=== PATIENT | female | born 1985 | race Caucasian/White ===

== ENCOUNTER → 2021-07-18 14:09 | Outpatient (CLI) | payer OTHER, SELFPAY ==
--- NOTE | ~2021-07-18 | XR_ITS ---
EXAMINATION: XR humerus LT INDICATION: Encounter for surveillance of implantable subdermal contraceptive device TECHNIQUE: Two views of the left humerus are obtained. COMPARISON: None available FINDINGS: There is a 4 cm linear radiopaque foreign body implanted in the posterior subcutaneous tiss ues overlying the mid/distal left humerus. Bone alignment is normal. There is no fracture. Joint spac es are normal. IMPRESSION: 1. Contraceptive device is implanted in the posterior subcutaneous tissues overlying the mid/distal h umerus. Reviewed, dictated and finalized at location F. IMPRESSION: 1. Contraceptive device is implanted in the posterior subcutaneous tissues over lying the mid/distal humerus.
== END ==
PROVIDERS: PCP Obstetrics & Gynecology; Visit Provider Obstetrics & Gynecology
DX: Z30.46 Encounter for surveillance of implantable subdermal contraceptive (principal)
CPT/HCPCS: 73060

== ENCOUNTER 2023-07-15 08:43 | Emergency (ER) | payer OTHER, SELFPAY ==
--- NOTE | ~2023-07-15 | CT_ITS ---
EXAMINATION: CT abdomen pelvis w con DATE: 07/15/2023 09:54 INDICATION: Left lower quadrant abdominal pain. TECHNIQUE: Computed tomography (CT) of the abdomen and pelvis was performed with 100 mL Omnipaque 350 intravenous contrast. Automated exposure control and iterative reconstruction technique were employe d. The dose-length product was 862.12 mGy-cm. COMPARISON: None. FINDINGS: The visualized portions of the lung bases demonstrates mild atelectasis. No pleural effusio n. The heart size is normal. No pericardial effusion. The liver, gallbladder, spleen, pancreas, adren al glands, and kidneys are normal. There are no dilated loops of bowel. There is wall thickening of t he sigmoid colon. There are scattered diverticula in the colon. There is fat stranding around the sig moid colon centered at a diverticulum, consistent with diverticulitis. The appendix is normal. There is a small volume of ascites in the pelvis and left paracolic gutter. There are no pathologically enl arged lymph nodes. There is mild thoracic and lumbar spondylosis. There is a chronic compression frac ture of L1. IMPRESSION: 1. Acute sigmoid diverticulitis. No perforation or abscess. 2. Small volume of ascites. Reviewed, dictated and finalized at location E.
[2023-07-15 08:54] VITALS: BP 136/82; PULSE 100; RESP 18; TEMP 36.4; O2SAT 97
--- NOTE | 2023-07-15 09:07 | ED.GENADULT ---
HPI - General Adult General Chief complaint: Abdominal Pain Stated complaint: abdominal pain Time Seen by Provider: 07/15/23 08:55 History of Present Illness HPI narrative: Eleni Kirkland is a 38 y/o female with no PMHx who presents today with complaints of left lower abdominal pain. She states that pain started last night at 1900, she tried to get some rest and the pain woke her up out of her sleep at around 0200. Reports she is starting to have some nausea now but no vomiting. Last ate / drank at 1900 yesterday. Denies urinary symptoms, last BM was yesterday and it was not diarrhea but softer then normal. LMP about 1 week ago. Related Data Home Medications Medication Instructions Recorded Confirmed ascorbate calcium (vitamin C) 500 500 mg PO DAILY 01/03/22 01/03/22 mg capsule elderberry fruit 200 mg capsule 200 mg PO DAILY 01/03/22 01/03/22 multivitamin (Daily Multi-Vitamin 1 tablet PO DAILY 01/03/22 01/03/22 tablet) Allergies Allergy/AdvReac Type Severity Reaction Status Date / Time No Known Allergies Allergy Verified 07/15/23 08:58 Review of Systems Review of Systems: CONSTITUTIONAL: Denies fever, chills, But states that she was sweating in the night last night EYES: Denies visual changes, redness, or discharge. ENT: Denies rhinorrhea, congestion, sore throat, or otalgia. CARDIOVASCULAR: Denies chest pain, palpitations, or edema. RESPIRATORY: Denies cough or dyspnea. GASTROINTESTINAL: + abdominal pain +nausea, no vomiting, or diarrhea. GENITOURINARY: Denies dysuria or hematuria. SKIN: Denies rash or itching. MUSCULOSKELETAL: Denies back pain, joint pain, or myalgia. NEUROLOGIC: Denies headache, numbness, dizziness, or weakness. PSYCHIATRIC: Denies anxiety or depression. 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 HEAD: Normocephalic, atraumatic. EYES: PERRLA and EOMI. ENT: Nares clear, no rhinorrhea or epistaxis. Mucous membranes moist. Oropharynx without tonsillar hypertrophy exudate or other lesions. NECK: Supple. No adenopathy or masses. No carotid bruits or JVD CHEST: Clear to auscultation. No respiratory distress. No wheezes rales or rhonchi HEART: Regular rate and rhythm. No murmur heard. Normal peripheral pulses. ABDOMEN: slightly distended + Pain to the left lower quadrant, hypoactive bowel sounds present EXTREMITIES: Normal range of motion. No edema. SKIN: Warm, dry, no rash. NEURO: No focal deficits. Alert and oriented x3. PSYCH: Normal mood and affect. Course Vital Signs Vital signs: Vital Signs Temperature 36.4 C L 07/15/23 08:54 Pulse Rate 100 07/15/23 08:54 Respiratory Rate 18 07/15/23 08:54 Blood Pressure 136/82 07/15/23 08:54 Pulse Oximetry 97 07/15/23 08:54 Oxygen Delivery Room Air 07/15/23 08:54 Temperature 36.4 C L 07/15/23 08:54 Pulse Rate 100 07/15/23 08:54 Respiratory Rate 18 07/15/23 08:54 Blood Pressure 136/82 07/15/23 08:54 Pulse Oximetry 97 07/15/23 08:54 Oxygen Delivery Room Air 07/15/23 08:54 Medical Decision Making [facility] Narrative Medical decision making narrative: 38 y/o with abdominal pain to the left lower quadrant started yesterday at 1900 constant with waves of severity specifically waking her out of her sleep last night at around 0200. + nausea no vomiting / BM yesterday abdomen mildly distended / pain to the left lower quad bowel sounds present Concern for : divert
[2023-07-15 09:08] LABS: Basophils Percent Auto 0.4 % (0.2-1.2); Eosinophils Absolute Auto 0.3 K/mm3 (0-0.3); Eosinophils Percent Auto 2.6 % (0-4.4); Immature Granulocyte Absolute 0.03 K/mm3 (0.00-0.031); Immature Granulocyte Percent A 0.3 % (0-0.5); Lymphocytes Absolute Auto 1.48 K/mm3 (0.9-3.2); Lymphocytes Percent Auto 14.3 % (18.3-44.2); Mean Corpuscular Hemoglobin 32.3 pg (26-34); Mean Corpuscular Volume 92.2 fl (80-100); Mean Platelet Volume 9.7 fl (7.4-10.4); Monocytes Percent Auto 9.3 % (2.6-8.5); Neutrophils Absolute Auto 7.6 K/mm3 (1.3-6.7); Neutrophils Percent Auto 73.1 % (45.5-73.1); Platelet Count Result 237 k/mm3 (150-375); Red Blood Count 4.34 M/mm3 (4.2-5.4); Red Cell Distribution Width 11.8 % (11.5-14.5); White Blood Count 10.4 K/mm3 (4.5-10.0)
[2023-07-15 09:15] LABS: Appearance Urine Cloudy (Clear); Bacteria Urine 2+ /hpf; Bilirubin Urine Negative (Negative); Blood Urine Trace (Negative); Color Urine Yellow (Yellow); Glucose Urine UA Negative (Negative); Ketones Urine 1+ mg/dL (Negative); Leukocyte Esterase Ur Negative LEU/UL (Negative); Nitrate Urine Negative (Negative); Non Pathogenic Casts 0-2; Protein Urine Negative (Negative); RBC Urine 0-2 /hpf (0-2); Specific Grav Ur 1.015 (1.001-1.035); Squamous Epithelial Cell Urine Moderate /hpf (Few); Urobilinogen Urine 0.2 mg/dL (<2.0); WBC Urine 0-5 /hpf (0-3)
[2023-07-15 09:17] LABS: Add Urine Microscopic? YES
[2023-07-15 09:18] LABS: Alanine Aminotransferase 22 U/L (6-35); Albumin Level 4.7 g/dL (3.5-5.1); Alkaline Phosphatase 51 U/L (38-126); Anion Gap 12 mmol/L (4-12); Aspartate Amino Transferase 22 U/L (14-36); Bilirubin,Total 1.6 mg/dL (0.2-1.3); Blood Urea Nitrogen 12 mg/dL (7-17); Calcium 9.1 mg/dL (8.4-10.2); Carbon Dioxide 19 mmol/L (22-30); Chloride 106 mmol/L (98-107); Estimated CRCL calculation 107 ml/min; Estimated Glomerular Filt Rate > 60; Glucose 108 mg/dL (65-110); Lipase 54 U/L (23-300); Potassium 3.7 mmol/L (3.4-5.0); Sodium 137 mmol/L (137-145)
[2023-07-15] MEDS: SODIUM CHLORIDE 0.9% IV 1,000 ML 999 ML IV CONT (09:35)
[2023-07-15] MEDS: KETOROLAC 30 MG/ML VIAL (*BKC) IV PUSH (09:35)
[2023-07-15] MEDS: ONDANSETRON INJ 4 MG/2 ML VIAL IV PUSH (09:36)
[2023-07-15] MEDS: FAMOTIDINE 20 MG/2 ML VIAL IV PUSH (09:36)
[2023-07-15] MEDS: DICYCLOMINE HCL INJ 20 MG/2 ML VIAL IM (09:36)
[2023-07-15 10:00] VITALS: BP 132/78; PULSE 78; RESP 16; TEMP 36.7; O2SAT 95
[2023-07-15 10:46] VITALS: BP 134/92; PULSE 70; RESP 16; TEMP 36.6; O2SAT 98
[2023-07-15] MEDS: MORPHINE SULFATE (*CRX) 4 MG/ML INJ IV PUSH (10:47)
[2023-07-15] MEDS: AMOXICILLIN/CLAVULANATE K 875-125 MG TAB 1 TABLET PO (10:49)
[2023-07-15 11:15] VITALS: O2SAT 96
[2023-07-15 11:16] VITALS: BP 137/88; O2SAT 96
[2023-07-15 11:50] VITALS: BP 132/80; PULSE 74; RESP 16; TEMP 36.6; O2SAT 100
== END 2023-07-15 11:53 | disposition home or self-care (01) ==
PROVIDERS: Preventive Medicine Aerospace Medicine; Emergency Provider Nurse Practitioner Family
DX: K57.92 Diverticulitis of intestine, part unspecified, without perforation or abscess without bleeding (principal); Z87.891 Personal history of nicotine dependence
CPT/HCPCS: 36415; 74177; 80053; 81001; 81025; 83690; 85025; 96361; 96372; 96374; 96375; 99284; A9270; J0500; J1885; J2270; J2405; J7030; Q9967

== ENCOUNTER 2023-07-17 10:22 | Emergency (ER) | payer OTHER, SELFPAY ==
--- NOTE | ~2023-07-17 | XR_ITS ---
EXAMINATION: XR abdomen obstructive series DATE: 07/17/2023 12:41 INDICATION: Diverticulitis. TECHNIQUE: Supine and upright views of the abdomen. FINDINGS: No prior studies for comparison. The visualized lung parenchyma is normal.. There is a nonobstructive bowel gas pattern. Gas and stool are seen throughout the colon to the level of the rectum. There is no free air. IMPRESSION: 1. No acute abdominal abnormality. Reviewed, dictated and finalized at location B.
[2023-07-17 10:32] VITALS: BP 151/82; PULSE 96; RESP 18; TEMP 36.4; O2SAT 99
--- NOTE | 2023-07-17 12:03 | PC.NURSE ---
Pt crying, anxious reports her abdominal pain has not changed since was seen 07/15/23. States has been taking antibiotics & [place] without relief. States she feels she should have been admitted when she was in ER 07/15/23. Pt reports is to go back to work tomorrow feels like she can't due to pain.
--- NOTE | 2023-07-17 12:09 | ED.ABDPAIN ---
HPI - Abdominal Pain General Chief Complaint: Abdominal Pain Stated Complaint: Diverticulitis Time Seen by Provider: 07/17/23 11:38 Source: patient Mode of arrival: ambulatory Limitations: no limitations History of Present Illness HPI narrative: Patient was recently seen in the emergency department on to stay with left lower quadrant abdominal pain. She was found to have diverticulitis was uncomplicated abscess or perforation at that time. She was discharged with prescriptions for [place] for pain relief, Zofran, and antibiotics. Patient has been concerned as she has intermittently been continuing to experience pain. She was also unsure why she was discharged home as the more she read about this condition she suspect it might have required admission. She has been taking her prescribed medications. However she has not had a bowel movement since Friday night and is concerned about this as well since normally she defecates 1-3 times/day. Patient had not been prescribed a bowel regimen. No prior colonoscopy. Does not currently have a pCP but is set to establish with someone on Friday. Patient had been very unsure of what to eat and so has had decreased PO intake but has an appetite. She states the pain in her LLQ feels like an occasional contraction. No fevers. Related Data Home Medications Medication Instructions Recorded Confirmed ascorbate calcium (vitamin C) 500 500 mg PO DAILY 01/03/22 01/03/22 mg capsule elderberry fruit 200 mg capsule 200 mg PO DAILY 01/03/22 01/03/22 multivitamin (Daily Multi-Vitamin 1 tablet PO DAILY 01/03/22 01/03/22 tablet) Allergies Allergy/AdvReac Type Severity Reaction Status Date / Time No Known Allergies Allergy Verified 07/15/23 08:58 [facility] Past Medical History Medical History Diverticulitis Dx June 2023 Social History Social History (Updated 07/18/23 @ 06:23 by Santa Sanz MD) Smoking packs per day: 0.5 Smoking cigarettes per day: 10.0 Years smoked: 5.5 Smoking pack-years: 2.75 Smoking status: Former smoker Tobacco type: cigarettes Second hand tobacco smoke exposure: No Alcohol intake: current Drinks per week: 2 Substance use: former Substance use type: marijuana 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 HEAD: Normocephalic, atraumatic. EYES: Non injected, non icteric ENT: Nares clear, no rhinorrhea or epistaxis. NECK: Supple. CHEST: Speaking in full sentences. No respiratory distress. HEART: Regular rate and rhythm. . ABDOMEN: Soft, nondistended. Mild tenderness to palpation in the left lower quadrant without rigidity or guarding. EXTREMITIES: Normal range of motion. No edema. SKIN: Warm, dry, no rash. NEURO: No focal deficits. Alert and oriented x3. PSYCH: Normal mood and affect. Course Vital Signs Vital signs: Vital Signs Temperature 97.6 F 07/17/23 10:32 Pulse Rate 96 07/17/23 10:32 Respiratory Rate 18 07/17/23 10:32 Blood Pressure 151/82 H 07/17/23 10:32 Pulse Oximetry 99 07/17/23 10:32 Oxygen Delivery Room Air 07/17/23 10:32 Temperature 98.0 F 07/17/23 14:48 Pulse Rate 78 07/17/23 14:48 Respiratory Rate 18 07/17/23 14:48 Blood Pressure 136/86 07/17/23 14:48 Pulse Oximetry 97 07/17/23 14:48 Oxygen Delivery Room Air 07/17/23 10:32 MDM - Abdominal Pain MDM Narrative Medical decision making narrative: Patient did present to the emergency department few days prior with left lower quadrant abdominal pain
[2023-07-17] MEDS: KETOROLAC 30 MG/ML VIAL (*BKC) 15 MG IM (12:41)
[2023-07-17] MEDS: ACETAMINOPHEN 500 MG TABLET 1000 MG PO (12:41)
[2023-07-17 12:45] VITALS: BP 144/97; PULSE 98; RESP 20; TEMP 36.6; O2SAT 99
--- NOTE | 2023-07-17 13:38 | PC.NURSE ---
Pt resting on stretcher, states sleeping short intervals. Rates pain 6
[2023-07-17 14:27] VITALS: BP 136/86; PULSE 78; RESP 16; TEMP 36.7; O2SAT 97
[2023-07-17 14:48] VITALS: BP 136/86; PULSE 78; RESP 18; TEMP 36.7; O2SAT 97
== END 2023-07-17 14:53 | disposition home or self-care (01) ==
PROVIDERS: Emergency Provider Student in an Organized Health Care Education/Training Program; PCP Internal Medicine
DX: K57.92 Diverticulitis of intestine, part unspecified, without perforation or abscess without bleeding (principal); Z87.891 Personal history of nicotine dependence
CPT/HCPCS: 74019; 96372; 99283; A9270; J1885

== ENCOUNTER 2024-09-16 10:12 | Outpatient (RCR) | payer OTHER, SELFPAY ==
[2024-09-16] MEDS: RHO(D) IMMUNE GLOBULIN 300 MCG/2 ML SYRINGE IM (16:02)
== END 2024-12-15 23:59 | disposition home or self-care (01) ==
LOC: ANHLAB 10:12
PROVIDERS: PCP Internal Medicine; Visit Provider Obstetrics & Gynecology
DX: Z29.13 Encounter for prophylactic Rho(D) immune globulin (principal); O36.0190 Maternal care for anti-D [Rh] antibodies, unspecified trimester, not applicable or unspecified; Z3A.00 Weeks of gestation of pregnancy not specified
CPT/HCPCS: 36415; 85461; 86850; 86900; 86901; 90384; 96372; J2790

== ENCOUNTER 2024-10-01 12:33 | Outpatient (CLI) | payer OTHER, SELFPAY ==
--- NOTE | ~2024-10-01 | US_ITS ---
EXAMINATION: US OB <=14 wk fetus w TV DATE: 10/01/2024 13:35 CDT INDICATION: vaginal bleeding COMPARISON: None TECHNIQUE: Real-time transabdominal obstetric ultrasound. FINDINGS: 6 para 2 Estimated date of delivery by last menstrual period is 05/01/2025 The uterus measures 11.0 x 6.5 x 7.9 cm. A gestational sac is identified within the uterus. A pole is identified, with a crown-rump length that measures 2.73 cm, corresponding to an appro ximate gestational age of 9 weeks and 6 days. 12 mm area of decreased echogenicity adjacent to the gestational sac, likely a small subchorionic hem orrhage. cardiac activity is identified at a rate of 169 bpm. The right ovary measures 2.5 x 1.4 x 3.0 cm. The left ovary measures 4.8 x 2.2 x 3.4, and contains a (likely) corpus luteal cyst. Estimated date of delivery by ultrasound is 05/02/2025 IMPRESSION: Single intrauterine gestation with an approximate gestational age of 9 weeks and 4 days, with c ardiac activity identified. 12 mm subchorionic hemorrhage for which short-term follow-up is recommended. Reviewed, dictated and finalized at location A. IMPRESSION: Single intrauterine gestation with an approximate gestational age of 9 weeks an d 4 days, with cardiac activity identified. 12 mm subchorionic hemorrhage for which short-term follow-up is recommended.
--- OUTSIDE RECORDS SUMMARY | 2024-10-01 12:37 | XMS_ITS | Clinical Summary ---
Author [place] [facility] [place] [address] Address [address] [place] [id number] Care Team Providers Care Fish Warden Name Role Phone Denton Quiroz MD Primary Care Provider [phone] Allergies No known active allergies Medications No known medications Active Problems Problem Noted Date Diagnosed Date Diverticulitis 07/22/2023 Assessment & Plan (07/22/2023 9:38 AM CDT): Patient with diverticulitis. She is currently asymptomatic. Exam is normal. I told her to increase the fiber in her diet. Patient can take fiber daily. She can take MiraLax as needed for constipation. She will finish Augmentin. Will make a referral to see a municipal court magistrate for colonoscopy. Patient was informed that she may have recurrent diverticulitis in the future. Routine general medical exam ination at a [facility] facility 07/22/2023 Assessment & Plan (07/22/2023 9:39 AM CDT): Patient uses seatbelt. Encouraged exercise. Blood work was ordered. Mammogram was ordered. She is followed by mine geologist for Pap smear. She does not smoke. Medical History Medical History Date Comments Diverticulitis Social History Tobacco Use Types Packs/Day Years Used Date Smoking Tobacco: Never Smokeless Tobacco: Never Tobacco Cessation:Counseling Given: Not Answered AUDIT-C Answer Date Recorded Q1: How often do you have a drink containing alcohol? Never 07/22/2023 Q2: How many drinks containi ng alcohol do you have on a typical day when you are drinking? Patient does not drink Q3: How often do you have si x or more drinks on one occasion? 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 Gender Identity Not on file Sexual Orientation Not on file Obstetrics History Last Filed Vital Signs Vital Sign Reading Time Taken Comments Blood Pressure 110/80 07/22/2023 8:23 AM CDT Pulse 77 07/22/2023 8:23 AM CDT Temperature 35.9 C (96.7 F) 07/22/2023 8:23 AM CDT Respiratory Rate 18 07/22/2023 8:23 AM CDT Oxygen Saturation 97% 07/22/2023 8:23 AM CDT Inhaled Oxygen Concentration - - Weight 91.6 kg (202 lb) 07/22/2023 8:23 AM CDT Height 170.2 cm (5' 7) 07/22/2023 8:23 AM CDT Body Mass Index 31.64 07/22/2023 8:23 AM CDT Plan of Treatment Health Maintenance Due Date Last Done Comments Breast Cancer Screening-Mammogram 1983 Cervical Cancer Screening 1983 Hepatitis C Screening 1983 DTaP/Tdap/Td Vaccine (1 - Tdap) 1994 Varicella Vaccines (1 of 2 - 13+ 2-dose series) 01/30/1996 Hepatitis B Screening 2001 Depression Screening 07/21/2024 07/22/2023 Regular Well Visit/Exam 18-64 07/21/2024 07/22/2023 Influenza Vaccine (#1) 2024 HPV Vaccines Aged Out No longer eligi ble based on patient's age to complete this topic Pneumococcal vaccine <65 Aged Out No longer eligible based on patient's age to complete this topic Insurance Dr Rui Rodriguez [place] [id number] Care Teams Fish Warden Relationship Specialty Start Date End Date Denton Quiroz MD [address] [address] PCP - General Internal Medicine 07/22/23
--- OUTSIDE RECORDS SUMMARY | 2024-10-01 12:37 | XMS_ITS | Referral Summary ---
Author Organization [facility] [place] [address] Address [address] [place] [id number] Care Team Providers Care Lumber Checker Name Role Phone Denton Quiroz MD Primary Care Provider [phone] Allergies No known active allergies Medications No [...] Will make a referral to see a carding supervisor for colonoscopy. Patient was informed that she may have recurrent diverticulitis in the future. [facility] 07[facility]2023 Assessment & Plan (07/22/2023 9:39 AM CDT): Patient uses seatbelt. Encouraged exercise. Blood work was ordered. Mammogram was ordered. She is followed by orchard sprayer for Pap smear. She does not smoke. 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
--- OUTSIDE RECORDS SUMMARY | 2024-10-01 12:38 | XMS_ITS | Data Portability ---
Author Organization [facility], [place] Address [address] [place] [address] Assessment Encounter Date Assessment Date Assessment LastModified by Organization Details LastModified Time 09/03/2021 09/03/2021 Discussed tubal ligation/ster ilization in depth, including different methods, risks of , ectopic, regret, and alternate options. Questions answered. Pt prefers LSC salpingectomy . Pt consented to the procedure after discussing R/B/A. Will schedule. [email or web address] Not available 09/03/2021 15:29:52 12/31/2021 12/31/2021 UA and culture again discussed RBA of bilateral LSC salpingectomy , consented questions answered continue OCP until after if UC neg and dribbling continues, may need urology after surgery. [email or web address] Not available 12/31/2021 15:08:02 09/21/2024 09/21/2024 Patient is ___weeks . Discussed plan. Not available 09/21/2024 11:15:34 Plan of Treatment Reminders Order Date Submit Date Provider Last Modified By Organization Details Last Modified Time Details Appointments U/S OB FIRST LOOK 2024 09:30A M ULTRASOUND Not available Not available Not available OB NEW 2024 10:00A M Rachel ALANIS MD Not available Not available Not available Lab None recorde d. Referral None recorde d. Procedures None recorde d. Surgeries salping ectomy, laparos copic (SURG) 2021 022 [facility], [address] [place] [address], [place], [address], 10/08/2021 15:30:23 Imaging US, obstetr ic, transva ginal 2024 025 [email or web address] [place], [facility] [address], [address], [place], [address], 09/16/2024 22:54:00 Medication Orders None recorde d. Patient TargetsNo targets recorded. Patient InstructionsNo instructions recorded. Reason for Referral None Reported. Results Created Date Observation Date Name Description Value Unit Range Abnormal Flag Note LastModifiedBy Organization Detail LastModifiedTime 01/01/20 22 12/31/2021 URINA LYSIS , WITH MICRO SCOPI C urinalysis, with microscopic CANCEL LED Reord ered Not Available [facility] [address] [place] [address], [address], 01/01/2022 04:11:44 01/01/2012/31/2021 URINA LYSIS , COMPL ETE (QUES T) color YELLOW yellow Not Available [facility] [address] [place] [address], [address], 01/02/2022 11:40:48 01/01/2012/31/2021 URINA LYSIS , COMPL ETE (QUES T) apperance CLOUDY clear abnormal Not Available [facility] [address] [place] [address], [address], 01/02/2022 11:40:48 01/01/20 22 12/31/2021 URINA LYSIS , COMPL ETE (QUES T) specific gravity 1.018 1.001- 1.035 Not Available [facility] [address] [place] [address], [address], 01/02/2022 11:40:48 01/01/20 22 12/31/2021 URINA LYSIS , COMPL ETE (QUES T) pH 6.0 5.0-8. 0 Not Available [facility] [address] [place] [address], [address], 01/02/2022 11:40:48 01/01/2012/31/2021 URINA LYSIS , COMPL ETE (QUES T) glucose NEGATI VE negati ve Not Available [facility] [address] [place], [place] [address], [address], 01/02/2022 11:40:48 01/01/2012/31/2021 URINA LYSIS , COMPL ETE (QUES T) bilirubin NEGATI VE negati ve Not Available [facility] [address] [place] [address], [address], 01/02/2022 11:40:48 01/01/2012/31/2021 URINA LYSIS , COMPL ETE (QUES T) ketones NEGATI VE negati ve Not Available [facility] [address] [place] [address], [address], 01/02/2022 11:40:48 01/01/20 22 12/31/2021 URINA LYSIS , COMPL ETE (QUES T) occult blood 1+ negati ve abnormal Not Available [facility] [address] [place], [place] [address], [address], 01/02/2022 11:40:48 01/01/2012/31/2021 URINA LYSIS , COMPL ETE (QUES T) protein NEGATI VE negati ve Not Available [facility] [address] [place], [place] [address], [address], 01/02/2022 11:40:48 01/01/2012/31/2021 URINA LYSIS , COMPL ETE (QUES T) nitrite NEGATI VE negati ve Not Available [facility] [address] [place], [place] [address], [address], 01/02/2022 11:40:48 01/01/20 22 12/31/2021 URINA LYSIS , COMPL ETE (QUES T) leukocyte esterase 2+ negati ve abnormal Not Available [facility] [address] [place] [address], [address], 01/02/2022 11:40:48 01/01/20 22 12/31/2021 URINA LYSIS , COMPL ETE (QUES T) WBC 6-10 /hpf < or = 5 abnormal Not Available [facility] [address] [place] [address], [address], 01/02/2022 11:40:48 01/01/20 22 12/31/2021 URINA LYSIS , COMPL ETE (QUES T) RBC 3-10 /hpf < or = 2 abnormal Not Available [facility] [address] [place] [address], [address], 01/02/2022 11:40:48 01/01/20 22 12/31/2021 URINA LYSIS , COMPL ETE (QUES T) squamous epithelial cells 20-40 /hpf < or = 5 abnormal Not Available [facility] [address] [place] [address], [address], 01/02/2022 11:40:48 01/01/20 22 12/31/2021 URINA LYSIS , COMPL ETE (QUES T) bacteria MANY /hpf none seen abnormal Not Available [facility] [address] [place] [address], [address], 01/02/2022 11:40:48 01/01/20 22 12/31/2021 URINA LYSIS , COMPL ETE (QUES T) hyaline cast NONE SEEN /lpf none seen Perfo rming Organ izati on Infor matio n: Site ID: CB Name: [facility] Addre ss: [address] [place] [address] Dire tor: Kayli silverman M.D. Not Available [facility] [address] [place], [address], 01/02/2022 11:40:48 01/01/20 22 12/31/2021 CULTU RE: URINE result report SEE RESULT S BELOW Test: Cultu re: Urine Speci men Sourc e: Urine Voide d Speci men Type: Urine Speci men Date: 12/31 1:37 PM Resul t Date: 01/02 10:37 AM Resul t Statu s: Final resul t Abnor mal: No Resul ting Lab: [facility] [address] [facility] [address] Tel: CULTU RE ----- ----- ----- --- Cultu re resul t (>=3 organ isms prese nt) indic ates possi ble conta minat ion. Repea t cultu re if sympt oms indic ate. Not Available [facility] [address] [place], [address], 01/02/2022 11:40:49 09/22/19 25 09/21/2024 IMAGE GUIDE D PAP AND HPV REGAR DLESS image guided Pap, HPV regardless of Pap result SEE RESULT S BELOW CASE REPOR T: Cytol ogy Gynec ologi louisa Repor t Case: [id number] Autho alethea malin Provi yajaira: Sari Alanis MD Colle cted: 09/21 1421 Order ing Locat ion: [place] [facility] Recei chacho: 09/22 0818 First Scree n: Sherm an, Clarissa Speci men: Scree seth Pap - Image d, Cervi x STATE MENT OF ADEQU ACY: Satis facto ry for evalu ation Trans forma tion zone compo nent prese nt ----- ----- ----- ----- ----- ----- ----- ----- ----- ----- ----- ----- ----- ----- ----- ----- ----- ---- FINAL DIAGN OSIS: Negat kurtis for Intra epith elial Lesio monik or Kennedi coffey (NIL) . Elect stefanykendrick connor by Clarissa Woody on 025 at 1919 CDT ----- ----- ----- ----- ----- ----- ----- ----- ----- ----- ----- ----- ----- ----- ----- ----- ----- ---- HPV RESUL TS: HPV mRNA E6/E7 : No HPV mRNA Detec verna NOTE: This high risk HPV mRNA assay detec ts fourt een high- risk HPV types (16, 18, 31, 33, 35, 39, 45, 51, 52, 56, 58, 59, 66, 68) witho ut diffe renti ation . COMME NT: This speci men was revie wed by a Cytot echno logis t and/o r Patho logis t (as indic ated in this repor t) after evalu ation using the Thinp rep Imagi ng Syste m. CLINI LOUISA INFOR MATIO N: Menst rual Statu s: LMP (if appli cable ): Clini louisa Histo ry/Pr eviou s Pap: Type of Neopl mike (if appli cable ): Signi fican t Clini louisa Findi ngs: Other Histo ry: Hormo tad (if appli cable ): PAP EDUCA TARA L NOTE: The Pap Test is a scree seth test with an inher ent false negat kurtis rate. Liqui d-bas ed sampl ing may decre ase, but will not elimi archana, false negat kurtis resul ts. A negat kurtis resul t does not precl ude the prese nce and/o r devel opmen t of disea se, since the prese nce of abnor mal cells in the sampl e depen ds on the locat ion of the lesio n and sampl ing techn ique. Mynor nued regul ar scree seth is the best metho d of cance r preve ntion . If repor verna cytol ogic findi ng do not corre late with physi louisa and/o r histo rical findi ngs, furth er inves tigat ion is recom elijah d, as clini gifty bower nted. Not Available [facility] (Lab) [address], [place], [address], 09/23/2024 00:29:02 09/22/19 25 09/21/2024 CT/GC AND TRICH OMONA S VAGIN CLEMENTINA (RRNA ), THINP REP VIAL CT/GC and trichomonas vaginalis (rrna), thinprep SEE RESULT S BELOW negati ve CHLAM YDIA TRACH OMATI S, PCR: Negat kurtis NEISS ERIA GONOR RHOEA E, PCR: Negat kurtis TRICH OMONA S VAGIN CLEMENTINA RIBOS OMAL RNA (RRNA ): Negat kurtis Not Available [facility] (Lab) [address], [place], [address], 09/23/2024 00:29:02 09/17/1909/16/2024 US, obste tric, trans vagin al No observ ation record ed. [email or web address] [place] [address], [place], [address], 09/16/2024 12:49:26 09/17/1909/16/2024 US, obste tric, follo w-up No observ ation record ed. [email or web address] [address], [place], [address], 09/20/2024 08:58:44 09/22/1909/21/2024 US, obste tric, follo w-up No observ ation record ed. [email or web address] [address], [place], [address], 09/28/2024 21:33:28 Result Notes None recorded. Procedures Surgical History Date Name Laterality Status Provider Name and Address Organization Details Recorded Time 2 Nexplanon Removal completed Roxy Lozano MD [address], [place], [address], [facility] 08/06/2021 16:08:17 2 Date of Last Pap Smear completed Vivian Nuñez [facility] 09/21/2024 11:20:38 Imaging Results None recorded. Procedure Notes None recorded. Medical Equipment None Reported. Allergies No known drug allergies Medications Name Sig Start Date Stop Date Status Note LastModified by Organization Details LastModified Time ketoconazol e 2 % shampoo WASH TOPICALLY TO THE SCALP 2 TIMES A WEEK 09/03 completed Not Available Not Available Not Available fluconazole 150 mg tablet TAKE 2 TABLETS BY MOUTH TODAY WITH DARK SODA THEN REPEAT IN 7 DAYS 07/18 completed Not Available Not Available Not Available benzonatate 100 mg capsule TAKE 1 CAPSULE BY MOUTH EVERY 8 HOURS NEEDED 09/21 completed Not Available Not Available Not Available amoxicillin 875 mg-potassiu m clavulanate 125 mg tablet TAKE 1 TABLET BY MOUTH EVERY 12 HOURS 09/21 completed Not Available Not Available Not Available fluocinolon e 0.01 % scalp oil and shower cap 09/03 completed Not Available Not Available Not Available active Not Available Not Avai lable Not Available Nexplanon 68 mg subdermal implant Inject by subcutane ous route. 10/04 completed Not Available Not Available Not Available Blisovi Fe 04/12 (28) 1 mg-20 mcg (21)/75 mg (7) tablet TAKE 1 TABLET BY MOUTH EVERY DAY 09/21 completed Not Available Not Available Not Available Vitals Date Recorded Body height Body mass index (BMI) Body weight Systolic And Diastolic Provider Name and Address Organization Details Last Updated DateTime 09/03/2021 170.18 cm 31.6 kg/m2 28673.66 g 113/82 mm[Hg] Dolores Rodriguez [facility] 09/03/2021 14:59:55 Date Recorded Body height Body mass index (BMI) Body weight Systolic And Diastolic Provider Name and Address Organization Details Last Updated DateTime 09/21/2024 170.18 cm 33 kg/m2 62497.99 g 110/73 mm[Hg] Vivian Nuñez [facility] 09/21/2024 11:17:55 Date Recorded Body height Body mass index (BMI) Body weight Systolic And Diastolic Provider Name and Address Organization Details Last Updated DateTime 12/31/2021 170.18 cm 32 kg/m2 79054.84 g 126/87 mm[Hg] Dolores Rodriguez [facility] 12/31/2021 11:11:24 Social History Question Answer Notes LastModified by [employer] Details LastModified Time Tobacco Smoking Status Never Smoker Dolores Rodriguez [facility] 07/18/2021 14:18:06 In The 14 Days Before Symptom Onset, Have You Had Close Contact With A Laboratory-confirm ed COVID-19 While That Case Was Ill? No Information n ot available 09/21/2024 In The 14 Days Before Symptom Onset, Have You Had Close Contact With A Person Who Is Under Investigation For COVID-19 While That Person Was Ill? No Information not available 09/21/2024 Have You Been To An Area Known To Be High Risk For COVID-19? No Information not available 09/21/2024 Have You Ever Been Counseled For Unhealthy Alcohol Use? No Information not available 07/18/2021 Has Tobacco Cessation Counseling Been Provided? No Information not available 07/18/2021 Sex: Unknown Functional Status Question Answer Note LastModified by [employer] Details LastModified Time Do you or have you ever used any other forms of tobacco or nicotine? No Information not available 07/18/2021 What is your level of alcohol consumption? Occasional Information not available 07/18/2021 Mental Status None recorded. Family History Relationship Description Onset Age of this Age Resolved Age Notes LastModified by Organization Details LastModified Time Mother Hypertensive disorder [email or web address] Not available 2021 14:13:56 Maternal Grandmother Hypertensive disorder [email or web address] Not available 2021 14:13:56 Medical History Condition Response Allergies (Food, seasonal, environmental ) N Other N Breast Cancer N Drug/Latex Allergies/Reactions N Blood Transfusion N Dermatologic Disorders N Lung Disease N Defects or Inherited Disease N Breast Problem N Gestational Diabetes N Hematologic disorders N Anesthesia Complications N History of STI N Deep Vein Thrombosis N Polycystic ovary syndrome N Anxiety Disorder N Autoimmune disease N Arthritis N Infertility N Polyps N Acid Reflux (GERD) N History of abnormal pap N Cancer N Stroke N Varicosities N Neurologic/Epilepsy N Endometriosis N High Cholesterol N Headaches N Fibromyalgia N Kidney Disease N Heart Problems N Kidney or Bladder Problems N Thyroid Problems N GI Problems N Eating Disorder N Anemia N Art (IVF or FET) N Psychiatric Illness N Ovarian Cancer N Diabetes N Pulmonary (TB, Asthma) N Hepatitis/Liver Disease N No Past Medical History N Eczema N Urinary Tract Infection N Abuse/Domestic Violence N Asthma N Trauma/Violence N Depression/ depression N Heart Disease N Pre-Eclampsia N Hypertension N Osteoporosis N Thrombophilias N Gynecological History Statement/Question Response Abnormal Pap N Date of Last Mammogram Date of LMP Was last menstrual period normal Y STIs/STDs N HPV Vaccine N Current Control Method Age at First Child 26 Are cycles usually normal Y Sexually Active? Y Menses Monthly Y Age of first menstrual cycle 10 Date of Last Pap Smear 07/18/2021 Sexual Problems? N LMP Unknown Obstetrics History GPAL:G 6 P 0 2 4 2 Type Value Spontaneous 4 Premature 2 Living 2 Total 6 Past Encounters Encounter ID Performer Location Encounter Start Date Encounter Closed Date Diagnosis/Indication Diagnosis SNOMED-CT Code Diagnosis ICD10 Code Diagnosis Note [id number] Roxy Lozano MD [place] [address] [address] 07/18/2021 13:53:24 07/20/2021 17:19:59 Gynecologic examination 17954965 Z01.419 Surveillan ce of subcutaneous contraceptive implant 240645664 Z30.46 Weight gain 8977447 R63. 5 Irregular periods 135984 07 N92.6 Amenorrhea 78413722 N91. 2 [id number] Roxy Lozano MD [place] [address] [address] 08/06/2021 15:19:36 08/06/2021 16:10:29 Removal of subcutaneous contraceptive 837694267 Z30.46 [id number] Roxy Lozano MD [place] [address],[place] [address] 09/03/2021 14:51:00 09/03/2021 15:38:38 Sterilization requested 546048155 Z30.2 [id number] Roxy Lozano MD [place] [address],[place] [address] 12/31/2021 10:19:27 12/31/2021 15:25:30 Preoperative state 02012833 Z78.9 Sterilizat ion requested 569720860 Z30.2 Dribbling of urine 66734 000 N39.43 [id number] Remy Alanis MD [place] [address],[place] [address] 09/16/2024 10:16:50 09/16/2024 11:02:24 Finding of menstrual bleeding 967318823 Z36.87 Z3A.01 [id number] Remy Alanis MD [place] [address],[place] [address] 09/21/2024 10:12:04 09/21/2024 11:03:55 [id number] Remy Alanis MD [place] [address],[place] [address] 09/21/2024 10:12:28 09/21/2024 12:15:13 Amenorrhea 67077312 N91.2 this patient is an 39-year-ol d female with amenorrhea . She has a positive test and ultrasound shows a viable intrauteri ne . We talked about early care. Talked about precaution s in that included comments about diet, exercise, over-the-c ounter medication s.. We talked about vaccines. Talked about genetic screening. Talked about her ultrasound today and your ultrasound at 12 weeks. She will begin routine care. We spent 20 minutes face-to-fa ce. More than 50% was counseling . HISTORY OF CERVICAL INCOMPETEN CE, CERCLAGE Health Concerns Section Related Observation LastModified by Organization Detai ls LastModified Time None Recorded Concern Status LastModified by Organization Details LastModified Time None Recorded Advance Directives Directive None Recorded Payers Insurance Date Sequence Insurance Name Policy Number Policy Pineda Covered Member ID Pineda Member ID Guarantor Name 09/19/2024 1 [facility] [id number] Jose Ernst [id number] Eleni Kirkland Notes Date Note Type Note Provider Name and Address Organization Details Recorded Time 09/03/2021 text/html Eleni is a 36yo who presents for wanting sterilization. Had difficult nexplanon removal and now wants permanent, is certain. Has not had any abdominal surgery. Roxy Lozano MD [address], [place], [address], [facility] 09/03/2021 15:30:03 12/31/2021 text/html Preop salpingect jeremiah next Friday. also 2-3 w of dribbling urine without coughing, sneezing, etc. no dysuria, freq, etc. on OCP until surgery. Roxy Lozano MD [address], [place], [address], [facility] 12/31/2021 15:08:12 09/21/2024 text/html this patient is an 39-year-old female with amenorrhea. She has a positive test and ultrasound shows a viable intrauterine . We talked about early care. Talked about precautions in that included comments about diet, exercise, [id number] medications.. We talked about vaccines. Talked about genetic screening. Talked about her ultrasound today and your ultrasound at 12 weeks. She will begin routine care. We spent 20 minutes [id number]. More than 50% was counseling. HISTORY OF CERVICAL INCOMPETENCE, CERCLAGE Remy Alanis MD [address], [place], [address], [facility] 09/21/2024 12:13:13 OBGyn Episode Ob Episode Information Episode Created Date Number of Fetuses Patient Bloodtype Patient rh Status Prepregnancy Weight lbs Domestic Partner Domestic Partner Phone Father Name Senior Analyst Developer Status 07/19/19 22 1 CLOSED Fetus Data First Name Last Name Admitted to NICU Weight (g) Sex Living Outcome Pediatric Complications Fetus ID Race Codes Race Delivery [place] [id number] Vaginal Delivery Ramana Calculation Initial Ramana Date Initial Exam Date Initial Exam Provider Initial Ultrasound Date Last Menstrual Period Date Ultra Sound Weeks Gestation 0 Eighteen To Twenty Week Ramana Update Ultra Sound Date Fundal Height At Umbil Quickening Date Ultra Sound Latest Weeks Gestation Final Ramana Confirmed By Final Ramana Confirmed Date Final Ramana Date Ultra Sound Latest Days Gestation 0 0 Menstrual History Last Menstrual Date Menses Monthly On Bcp Conception Prior Menses Frequency Hcg Plus Date Menarche Onset Age Delivery Information Delivery Date Delivery Type Labor Anesthesia Weeks Gestation Incision Type Labor Labor Length Hrs Delivered By Post Complications Tubal Sterilization Discharge Date Comments 2 30 Discharge Information Feeding Method Contraceptive Method Maternal HG B and HCT Levels Ob Episode Information Episode Created Date Number of Fetuses Patient Bloodtype Patient rh Status Prepregnancy Weight lbs Domestic Partner Domestic Partner Phone Father Name Senior Analyst Developer Status 07/19/19 22 1 CLOSED Fetus Data First Name Last Name Admitted to NICU Weight (g) Sex Living Outcome Pediatric Complications Fetus ID Race Codes Race Delivery Type 2834.95 M [place] [id number] Vaginal Delivery Ramana Calculation Initial Ramana Date Initial Exam Date Initial Exam Provider Initial Ultrasound Date Last Menstrual Period Date Ultra Sound Weeks Gestation 0 Eighteen To Twenty Week Ramana Update Ultra Sound Date Fundal Height At Umbil Quickening Date Ultra Sound Latest Weeks Gestation Final Ramana Confirmed By Final Ramana Confirmed Date Final Ramana Date Ultra Sound Latest Days Gestation 0 0 Menstrual History Last Menstrual Date Menses Monthly On Bcp Conception Prior Menses Frequency Hcg Plus Date Menarche Onset Age Delivery Information Delivery Date Delivery Type Labor Anesthesia Weeks Gestation Incision Type Labor Labor Length Hrs Delivered By Post Complications Tubal Sterilization Discharge Date Comments 4 Discharge Information Feeding Method Contraceptive Method Maternal HG B and HCT Levels
== END 2024-10-01 12:34 | disposition home or self-care (01) ==
LOC: ANHIMG 12:35
PROVIDERS: PCP Internal Medicine; Visit Provider Obstetrics & Gynecology
DX: O20.0 Threatened abortion (principal)
CPT/HCPCS: 76801; 76817

== ENCOUNTER 2025-02-07 11:03 | Outpatient (CLI) | payer OTHER, SELFPAY ==
[2025-02-07 12:30] LABS: Hematocrit 34.9 % (37.0-47.0); Hemoglobin 12.0 g/dL (12.0-15.0)
[2025-02-07 12:51] LABS: Glucose 1 Hour PP 50gm Dose 159 mg/dL
[2025-02-07 13:20] LABS: Syphilis IgG/IgM Antibody Non-Reactive (Nonreactive)
[2025-02-07 13:33] LABS: HIV 1/2 Ab P24 Ag Result Negative (Negative)
[2025-02-07] MEDS: RHO(D) IMMUNE GLOBULIN 300 MCG/2 ML SYRINGE IM (14:32)
== END 2025-02-07 11:04 | disposition home or self-care (01) ==
PROVIDERS: Visit Provider Obstetrics & Gynecology
DX: O36.0130 Maternal care for anti-D [Rh] antibodies, third trimester, not applicable or unspecified (principal); Z3A.00 Weeks of gestation of pregnancy not specified
CPT/HCPCS: 36415; 82947; 85014; 85018; 85461; 86593; 86703; 86850; 86880; 86900; 86901; 90384; 96372; G0432; J2790

== ENCOUNTER 2025-02-09 18:25 | Observation (INO) | payer OTHER, SELFPAY ==
[2025-02-09] VITALS (29 sets, daily range): BP systolic 111–126; BP diastolic 60–69; PULSE 84–97; TEMP 36.5; O2SAT 95–100; BMI 34.5
--- NOTE | 2025-02-09 18:25 | PC.NURSE ---
Pt arrives to unit post fall, pt fell onto right leg and back after slipping on a wet spot. Pt denies pain, vaginal bleeding, contractions, and cramping.
--- NOTE | 2025-02-09 18:42 | OBADM ---
This patient, Eleni Kirkland, admitted to the OB room OB Post 116 for observation. Patient/family oriented to hospital policies and general routines including ID bracelet, bed and alarms, visiting hours, pain management, procedures, bathroom and other care routines, personal items, smoking policy, room service/diet, and visiting hours. Patient/Family are encouraged to report perceived risks to care and to ask questions if they do not understand what they are told or what they should do.
--- NOTE | 2025-02-09 19:29 | PC.NURSE ---
Called Jose M Reza CNM, update on pt, fall at 1700, tracing, and Rhogam administration Friday. Orders received for ultrasound of well-being and placenta check and discharge if normal with instructions to keep next scheduled appointment and when to return to the unit.
--- NOTE | 2025-02-09 19:35 | PC.NURSE ---
Called Jose M Reza CNM, update on ultrasound not in house. Orders received to monitor heart tones and uterine activity for four hours post fall and discharge if reactive and Category I with instructions to keep next scheduled appointment and when to return to the unit.
--- NOTE | 2025-02-09 21:10 | PC.NURSE ---
Pt discharged with instructions to keep next scheduled appointment, fall precautions, and when to return to the unit, pt verbalizes understanding.
--- OUTSIDE RECORDS SUMMARY | 2025-02-10 01:12 | XMS_ITS | Encounter Summary ---
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 Not hard at all 11/17/2024 [facility] [place] [facility] - Occupational Stress Questionnaire Answer Date Recorded Do you feel stress - tense, restless, nervous, or anxious, or unable to sleep at night because your mind is troubled all the time - these days? Not at all 11/17/2024 Hunger Vital Sign Answer Date Recorded Within the past 12 months, y ou worried that your food would run out before you got the money to buy more. Never true 11/18/19 25 Within the past 12 months, t he food you bought just didn't last and you didn't have money to get more. Never true 11/17/2024 PRAPARE - Transportation Answer Date Re corded In the past 12 months, has l ack of transportation kept you from medical appointments or from getting medications? No 10/23 In the past 12 months, has l ack of transportation kept you from meetings, work, or from getting things needed for daily living? No 11/17/2024 [place] Depression Scale Answer Date Recorded [place] Depression Scale Total 3 11/24/2024 The thought of harming myself has occurred to me . Never 11/24/2024 Housing Stability Vital Sign Answer Ruben e Recorded In the last 12 months, was t here a time when you were not able to pay the mortgage or rent on time? No 11/17/2024 In the past 12 months, how m any times have you moved where you were living? 1 11/17/2024 At any time in the past 12 m [facility], were you homeless or living in a [facility] (including now)? No 11/17/2024 Education Answer Date Recorded What is the highest level of school you have completed or the highest degree you have received? High school graduate 11/24/2024 Estimated Date of Delivery Comme nts Yes 05/06/2025 Based on Ultraso und Sex and Gender Information Value Date Recorded Sex Assigned at Not on file Legal Sex Female 2:15 PM CDT Gender Identity Female 11/19/2024 11:51 AM CDT Sexual Orientation Straight 11/19/2024 11 :51 AM CDT documented as of this encounter Functional Status * Is person deaf or have serious hearing difficulty? Answer Date of Assessment Author No 11/17/2024 9:28 PM CDT Conchita Abraham RN * Is person blind or have serious difficulty seeing? Answer Date of Assessment Author No 11/17/2024 9:28 PM CDT Conchita Abraham RN * Does person have serious difficulty walking/climbing stairs? Answer Date of Assessment Author No 11/17/2024 9:28 PM CDT Conchita Abraham RN * Does person have difficulty dressing/bathing? Answer Date of Assessment Author No 11/17/2024 9:28 PM CDT Conchita Abraham RN * Does person have difficulty doing errands alone? Answer Date of Assessment Author No 11/17/2024 9:28 PM Conchita Ash RN documented as of this encounter Mental Status * Does person have difficulty concentrating/remembering/making decisions? Answer Entry Date Author No 11/17/2024 9:28 PM Conchita Ash RN documented in this encounter Plan of Treatment Upcoming Encounters Date Type Department Care Team (Late st Contact Info) Description 05/06/[address] [facility] [address] [place] [address] documented as of this encounter Visit Diagnoses Not on filedocumented in this encounter
--- OUTSIDE RECORDS SUMMARY | 2025-02-10 01:12 | XMS_ITS | Continuity of Care Document ---
Author Organization [facility] [place] Address [address] [place] [address] Assessment Encounter Date Assessment Date Assessment LastModified by Organization Details LastModified Time 11/16/2024 11/16/2024 Patient is ___weeks . Discussed plan. Not available 11/16/2024 12:25:49 Plan of Treatment Reminders Order Date Submit Date Provider Last Modified By Organization Details Last Modified Time Details Appointments 3HR GLUCOSE 2024 09:00A M RN SCHEDULE Not available Not available Not available OB ROUTINE 2024 08:45A M Rachel ALANIS MD Not available Not available Not available Lab None recorded . Referral None recorded . Procedures None recorded . Surgeries None recorded . Imaging None recorded . Medication Orders None recorded . Patient TargetsNo targets recorded. Patient InstructionsNo instructions recorded. Reason for Referral None Reported. Results Created Date Observation Date Name Description Value Unit Range Abnormal Flag Note LastModifiedBy Organization Detail LastModifiedTime 10/26/1910/25/2024 [UNIT Y] ANEUP LOIDY NIPT fraction 3.7% normal Not Available [facility] [address], [place], [address], 10/25/2024 17:33:14 10/26/1910/25/2024 [UNIT Y] ANEUP LOIDY NIPT 22Q11.2 microdeletio n LOW RISK <1 in 10,000 normal Not Available [facility] [address], [place], [address], 10/25/2024 17:33:14 10/26/19 25 10/25/2024 [UNIT Y] ANEUP LOIDY NIPT sex chromosome aneuploidy NOT DETECT ED normal Not Available [facility] [address], [place], [address], 10/25/2024 17:33:14 10/26/19 25 10/25/2024 [UNIT Y] ANEUP LOIDY NIPT monosomy X LOW RISK <1 in 10,000 normal Not Available [facility] [address], [place], [address], 10/25/2024 17:33:14 10/26/19 25 10/25/2024 [UNIT Y] ANEUP LOIDY NIPT trisomy 13 LOW RISK <1 in 10,000 normal Not Available [facility] [address], [place], [address], 10/25/2024 17:33:14 10/26/19 25 10/25/2024 [UNIT Y] ANEUP LOIDY NIPT trisomy 18 LOW RISK <1 in 10,000 normal Not Available [facility] [address], [place], [address], 10/25/2024 17:33:14 10/26/19 25 10/25/2024 [UNIT Y] ANEUP LOIDY NIPT trisomy 21 LOW RISK <1 in 10,000 normal Not Available [facility] [address], [place], [address], 10/25/2024 17:33:14 10/26/19 25 10/25/2024 [UNIT Y] ANEUP LOIDY NIPT sex MALE normal Not Available [facility] [address], [place], [address], 10/25/2024 17:33:14 10/26/19 25 10/25/2024 [UNIT Y] ANEUP LOIDY NIPT gestation SINGLE TON normal Not Available [facility] [address], [place], [address], 10/25/2024 17:33:14 10/26/19 25 10/25/2024 [UNIT Y] ANEUP MAKAYLA NIPT for detailed report, see pdf See PDF normal Not Available [facility] [address], [place], [address], 10/25/2024 17:33:14 10/27/19 25 10/26/2024 [UNIT Y] MADELYN Wilkins sickle cell disease/beta -thalassemia /hemoglobino pathies carrier screen NEGATI VE normal Not Available [facility] [address], [place], [address], 10/26/2024 02:27:18 10/27/19 25 10/26/2024 [UNIT Y] MADELYN Wilkins alpha-thalas semia carrier screen NEGATI VE normal Not Available [facility] [address], [place], [address], 10/26/2024 02:27:18 10/27/19 25 10/26/2024 [UNIT Y] MADELYN Wilkins cystic fibrosis carrier screen NEGATI VE normal Not Available [facility] [address], [place], [address], 10/26/2024 02:27:18 10/27/19 25 10/26/2024 [UNIT Y] MADELYN Wilkins spinal muscular atrophy carrier screen NEGATI VE 2 SMN1 copies , SNP not presen t normal Not Available [facility] [address], [place], [address], 10/26/2024 02:27:18 10/27/19 25 10/26/2024 [UNIT Y] MADELYN Wilkins for detailed report, see pdf See PDF normal Not Available [facility] [address], [place], [address], 10/26/2024 02:27:18 10/20/19 25 10/19/2024 CBC W/DIF F WBC 7.5 10'3/ uL 3.5-10 .5 Not Available [facility] (Lab) [address], [place], [address], 10/20/2024 15:03:15 10/20/19 25 10/19/2024 CBC W/DIF F RBC 4.11 10'6/ uL (based on docume nted legal sex) 3.80-5 .20 Not Available [facility] (Lab) [address], [place], [address], 10/20/2024 15:03:15 10/20/19 25 10/19/2024 CBC W/DIF F HGB 12.7 g/dL (based on docume nted legal sex) 11.6-1 5.4 Not Available [facility] (Lab) [address], [place], [address], 10/20/2024 15:03:15 10/20/19 25 10/19/2024 CBC W/DIF F HCT 37.6 % (based on docume nted legal sex) 34.0-4 5.0 Not Available [facility] (Lab) [address], [place], [address], 10/20/2024 15:03:15 10/20/1910/19/2024 CBC W/DIF F MCV 91.5 fL 80.0-9 9.0 Not Available [facility] (Lab) [address], [place], [address], 10/20/2024 15:03:15 10/20/1910/19/2024 CBC W/DIF F MCH 30.9 pg 27.0-3 4.0 Not Available [facility] (Lab) [address] [place], [address], 10/20/2024 15:03:15 10/20/19 25 10/19/2024 CBC W/DIF F MCHC 33.8 g/dL 32.0-3 5.5 Not Available [facility] (Lab) [address] [facility], [place], [address], 10/20/2024 15:03:15 10/20/1910/19/2024 CBC W/DIF F RDW 11.8 % 11.0-1 5.0 Not Available [facility] (Lab) [address] [facility], [place], [address], 10/20/2024 15:03:15 10/20/19 25 10/19/2024 CBC W/DIF F plt 260 10'3/ uL 150-40 0 Not Available [facility] (Lab) [address] [facility], [place], [address], 10/20/2024 15:03:15 10/20/19 25 10/19/2024 CBC W/DIF F MPV 11.4 fL 8.8-12 .1 Not Available [facility] (Lab) [address] [facility], [place], [address], 10/20/2024 15:03:15 10/20/19 25 10/19/2024 CBC W/DIF F NRBC's 0.0 % 0.0 Not Available [facility] (Lab) [address] [facility], [place], [address], 10/20/2024 15:03:15 10/20/19 25 10/19/2024 CBC W/DIF F absolute NRBCs 0.0 10'3/ uL no refere nce range establ ished Not Available [facility] (Lab) [address] [facility], [place], [address], 10/20/2024 15:03:15 10/20/1910/19/2024 CBC W/DIF F neutrophils 67.3 % 34.0-7 3.0 Not Available [facility] (Lab) [address] [facility], [place], [address], 10/20/2024 15:03:15 10/20/19 25 10/19/2024 CBC W/DIF F lymphocytes 21.8 % 15.0-5 0.0 Not Available [facility] (Lab) [address] [facility], [place], [address], 10/20/2024 15:03:15 10/20/19 25 10/19/2024 CBC W/DIF F monocytes 7.0 % 1.0-15 .0 Not Available [facility] (Lab) [address] [facility], [place], [address], 10/20/2024 15:03:15 10/20/19 25 10/19/2024 CBC W/DIF F eosinophils 2.8 % 0.0-8. 0 Not Available [facility] (Lab) [address] [facility], [place], [address], 10/20/2024 15:03:15 10/20/19 25 10/19/2024 CBC W/DIF F basophils 0.4 % 0.0-2. 0 Not Available [facility] (Lab) [address] [facility], [place], [address], 10/20/2024 15:03:15 10/20/19 25 10/19/2024 CBC W/DIF F immature granulocytes 0.7 % no define d refere nce range Immat ure Granu locyt es (IG) repre sents autom ated enume ratio n of Metam yeloc ytes, Myelo cytes and Promy elocy abhay when IG is < 5%. Blast s are not inclu ded in IG and repor verna separ ately if prese nt. Not Available [facility] (Lab) [address] [facility], [place], [address], 10/20/2024 15:03:15 10/20/1910/19/2024 CBC W/DIF F absolute neutrophils 5.0 10'3/ uL 1.5-8. 0 Not Available [facility] (Lab) [address] [facility], [place], [address], 10/20/2024 15:03:15 10/20/19 25 10/19/2024 CBC W/DIF F absolute lymphocytes 1.6 10'3/ uL 1.0-4. 0 Not Available [facility] (Lab) [address] [facility], [place], [address], 10/20/2024 15:03:15 10/20/19 25 10/19/2024 CBC W/DIF F absolute monocytes 0.5 10'3/ uL 0.2-1. 0 Not Available [facility] (Lab) [address] [facility], [place], [address], 10/20/2024 15:03:15 10/20/19 25 10/19/2024 CBC W/DIF F absolute eosinophils 0.2 10'3/ uL 0.0-0. 6 Not Available [facility] (Lab) [address] [facility], [place], [address], 10/20/2024 15:03:15 10/20/19 25 10/19/2024 CBC W/DIF F absolute basophils 0.0 10'3/ uL 0.0-0. 3 Not Available [facility] (Lab) [address] [facility], [place], [address], 10/20/2024 15:03:15 10/20/19 25 10/19/2024 CBC W/DIF F absolute immature granulocytes 0.1 10'3/ uL 0.00-0 .10 Refer ence range s for nonbi nary/ inter sex or unspe cifie d gende r patie nts have not been estab lishe d. Pleas e refer to the kekeo wing table for range s estab lishe d for cisge nder patie nts and evalu ate in the clini louisa josé xt of the indiv idual patie nt: https ://nikia matos book. nm.or g/gen derx Not Available [facility] (Lab) [address] [facility], [place], [address], 10/20/2024 15:03:15 10/20/1910/19/2024 HEPAT ITIS B SURFA CE ANTIG EN hepatitis B surface antigen Non-re active non-re active This assay was perfo rmed using [employer] ratio n reage nts and test kits. Value s obtai thai with other assay metho ds or kits canno t be used inter sky eably . Not Available [facility] (Lab) [address] [place], [address], 10/20/2024 15:03:15 10/20/19 25 10/19/2024 HIV 1/2 ANTIG EN/AN TIBOD Y, REFLE X CONFI RMATI ON HIV antigen/anti body Nonrea ctive nonrea ctive HIV-1 antig en and HIV-1 /HIV- 2 antib odies were not detec verna. No labor atory evide nce of HIV infec tion. Not Available [facility] (Lab) [address] [facility], [place], [address], 10/20/2024 15:03:16 10/20/19 25 10/19/2024 HEPAT ITIS C ANTIB CHAYA SCREE N, REFLE X TO CONFI RMATI ON hepatitis C antibody Non-re active non-re active Antib odies to HCV Not Detec verna, does not exclu de the possi bilit y of expos ure to HCV. Not Available [facility] (Lab) [address] [facility], [place], [address], 10/20/2024 15:03:17 10/20/19 25 10/19/2024 RUBEL LA IGG ANTIB CHAYA, QUANT rubella antibodies, IgG Reacti ve reacti ve Not Available [facility] (Lab) [address] [place], [address], 10/20/2024 15:03:17 10/20/19 25 10/19/2024 RUBEL LA IGG ANTIB CHAYA, QUANT rubella antibodies, IgG quant 17.7 IU/mL >=10 Non-r eacti ve (Non- Immun e) <10 IU/mL React kurtis (Immu ne) > or = 10 IU/mL Not Available [facility] (Lab) [address] [place], [address], 10/20/2024 15:03:17 10/20/19 25 10/19/2024 RPR SCREE N, REFLE X TITER /CONF IRMAT ION RPR qualitative Nonrea ctive nonrea ctive Not Available [facility] (Lab) [address] , [place], [address], 10/20/2024 15:03:18 10/20/19 25 10/19/2024 HEMOG LOBIN A1C hemoglobin A1C 5.1 % 4.0-5. 6 The Ameri can [employer] [facility] [employer] iatio n recom mends that a prima ry goal of thera py shoul d be a HBA1C of < 7% and that physi cians shoul d reeva luate the treat ment regim en in patie nts with HBA1C value s consi stent ly > 8%. <5.7% Gail l 5.7 - 6.4% Incre ased risk for diabe abhay >=6.5 % Diagn ostic of diabe abhay <7.0% Goal of thera py >8.0% Actio n sugge sted Not Available [facility] (Lab) [address] [facility], [place], [address], 10/20/2024 15:03:18 10/20/1910/19/2024 CULTU RE: URINE result report SEE RESULT S BELOW Test: Cultu re: Urine Speci men Sourc e: Urine Voide d Speci men Type: Urine Speci men Date: 2024 1335 Resul t Date: 2024 0540 Resul t Statu s: Final resul t Abnor mal: No Resul ting Lab: [facility] [address] [facility] [address] Tel: [phone] CULTU RE ----- ----- ----- --- No growt h in 1 day (dete ction level of 10,00 0 colon ies / ml.) Not Available [facility] (Lab) [address] , [place], [address], 10/21/2024 06:45:38 07/29/20 25 10/19/2024 US, obste tric, nucha l trans lucen cy No observ ation record ed. [email or web address] [address], [place], [address], 10/19/2024 15:07:17 10/20/19 25 10/19/2024 US, obste tric, follo w-up No observ ation record ed. [email or web address] [facility] [address], [place], [address], 11/05/2024 09:32:39 11/17/19 25 11/16/2024 US, obste tric, limit ed No observ ation record ed. [email or web address] [place] [address], [place], [address], 11/16/2024 15:57:26 11/17/19 25 11/16/2024 US, obste tric, trans vagin al No observ ation record ed. [email or web address] [place] [address], [place], [address], 11/16/2024 15:57:36 11/17/19 25 11/16/2024 US, obste tric, limit ed No observ ation record ed. [email or web address] [facility] [address], [place], [address], 11/17/2024 14:50:26 11/20/19 25 11/18/2024 US, obste tric, follo w-up No observ ation record ed. [email or web address] [facility] [address], [place], [address], 12/24/2024 13:52:16 11/25/19 25 11/24/2024 US, obste tric, follo w-up No observ ation record ed. [email or web address] [facility] [address], [place], [address], 11/24/2024 16:49:35 12/07/1912/06/2024 US, obste tric, 1st trime ster, singl e gesta tion No observ ation record ed. [email or web address] [facility] [address], [address], 12/08/2024 18:03:29 12/08/19 25 12/06/2024 US, obste tric, 1st trime ster, singl e gesta tion No observ ation record ed. [address] [facility] [address], [address], 12/14/2024 17:41:48 12/14/1912/13/2024 US, obste tric, follo w-up No observ ation record ed. [address] [facility] [address], [address], 12/15/2024 13:00:03 01/04/2001/03/2025 US, obste tric, 1st trime ster, singl e gesta tion No observ ation record ed. [address] [facility] [address], [address], 01/03/2025 17:23:45 01/04/2001/03/2025 US, obste tric, 1st trime ster, singl e gesta tion No observ ation record ed. [address] [facility] [address], [address], 01/14/2025 14:15:31 01/15/20 25 01/14/2025 US, obste tric, follo w-up No observ ation record ed. [email or web address] [facility] [address], [address], 01/18/2025 12:02:30 01/15/20 25 01/14/2025 US, obste tric, 1st trime ster, singl e gesta tion No observ ation record ed. [email or web address] [facility] [address] [place], [address], 01/18/2025 12:03:05 01/15/20 25 01/14/2025 US, obste tric, 1st trime ster, singl e gesta tion No observ ation record ed. [email or web address] [facility] [address] [place], [address], 01/18/2025 12:05:42 02/08/20 25 02/07/2025 US, obste tric, follo w-up No observ ation record ed. [email or web address] Carlson [address], [place], [address], 02/09/2025 13:34:32 02/08/20 25 02/07/2025 US, obste tric, follo w-up No observ ation record ed. [email or web address] [place] [address], [place], [address], 02/07/2025 15:52:03 02/08/20 25 02/07/2025 US, obste tric, trans vagin al No observ ation record ed. [email or web address] [place] [address], [place], [address], 02/07/2025 15:52:15 Result Notes None recorded. Problems Name Problem SNOMED Code Status Onset Date Resolution Date Notes Provider Name and Address Organization Details Recorded Time 12244271 Active 2024 Vivian peñaloza [facility] 5 11:28:54 Multigrav sam of advanced maternal age 577430136 Active 2024 >40 testing @ 36wks Gretta peñaloza [facility] 5 09:33:09 Cervical incompete nce 93603163 Active 2024 cerclage in 2nd viable delivered at 38 weeks. MFM referral faxed 11/16 scheduled 11/17 sent to [facility] for evaluatio n cerclaged placed 11/18 [facility] scheduled for follow up & us 11/24 & 12/22 US & Consult & 01/03 0945 [facility] office Gretta [facility], [facility] 5 13:54:31 Uterine leiomyoma 71098853 Active 2024 Remy Alanis MD [address], [place], [address], [facility] 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 5 11:31:16 Problem Notes None recorded. Procedures Surgical History Date Name Laterality Status Provider Name and Address Organization Details Recorded Time 5 Date of Last Pap Smear completed Vivian Nuñez [facility] 10/19/2024 11:28:22 2 Nexplanon Removal completed Roxy Lozano MD [address], [place], [address], [facility] 08/06/2021 16:08:17 Imaging Results None recorded. Procedure Notes None [...] completed Not Available Not Available Not Available progesteron e micronized 200 mg capsule INSERT 1 CAPSULE IN THE VAGINA AT BEDTIME DIRECTED active Not Available Not Available No t Available amoxicillin 875 mg-potassiu m clavulanate 125 [...] Available Not Available Vitals Date Recorded Body weight Systolic And Diastolic Provider Name and Address Organization Details Last Updated DateTime 11/16/2024 91173.96309 g 129/82 mm[Hg] Vivian Nuñez [facility] 11/16/2024 12:26:50 Social History Question Answer Notes LastModified by Jebbit Details LastModified Time Tobacco Smoking Status Never Smoker Dolores peñaloza, [facility] 07/18/2021 14:18:06 In The 14 Days [...] Functional Status Question Answer Note LastModified by Organizat ion Details LastModified Time Do you or have [...] (Food, seasonal, environmental ) N Other N Drug/Latex Allergies/Reactions N Blood Transfusion N Breast Cancer N Dermatologic Disorders N Lung Disease N Defects or Inherited Disease N Breast Problem N Gestational Diabetes N Hematologic disorders N Anesthesia Complications N History of STI N Deep Vein Thrombosis N Polycystic ovary syndrome N Anxiety Disorder N Autoimmune disease N Arthritis N Polyps N Infertility N Acid Reflux (GERD) N History of abnormal pap N Cancer N Varicosities N Stroke N Neurologic/Epilepsy N Endometriosis N High Cholesterol N Fibromyalgia N Headaches N Kidney Disease N Heart Problems N Thyroid Problems N Kidney or Bladder Problems N GI Problems N Eating Disorder [...] Abnormal Pap N Date of Last Mammogram Was last menstrual period normal Y STIs/STDs N HPV Vaccine N Current Control Method Age at First Child 26 Are cycles usually normal Y Sexually Active? Y Menses Monthly Y Age of first menstrual cycle 10 Date of Last Pap Smear 09/21/2024 Sexual Problems? N LMP Unknown Obstetrics History GPAL:G 5 P 0 2 2 2 Type Value Spontaneous 2 Premature 2 Living 2 Total 5 Past Encounters Encounter ID Performer Location Encounter Start Date Encounter Closed Date Diagnosis/Indication Diagnosis SNOMED-CT Code Diagnosis ICD10 Code Diagnosis IMO Codes Diagnosis Note [id number] Remy Alanis MD [place] [address] [address] 10/19/2024 09:56:25 10/19/2024 10:59:33 screening 032234653 Z36.82 Z3A.11 [id number] Remy Alanis MD [place] [address],[facility] [place] [address] 10/19/2024 09:57:38 10/19/2024 11:59:03 care status 639848269 Z34.82 [id number] Remy Alanis MD [place] [address],[place] [address] 11/16/2024 11:11:02 11/16/2024 12:27:41 care: obstetric risk [id number] O09.292 O09.522 Z3A.16 [id number] Remy Alanis MD [place] [address],[place] [address] 11/16/2024 11:13:14 11/16/2024 12:58:02 care status 118526071 Z34.80 [id number] Health Concerns Section Related Observation LastModified by Organization Detai ls LastModified Time None Recorded Concern Status LastModified by Organization Details LastModified Time None Recorded Payers Encounter Date Sequence Insurance Name Policy Number Policy Pineda Covered Member ID Pineda Member ID Guarantor Name 11/16/2024 1 [facility] [id number] Jose Ernst [id number] Eleni Kirkland Notes Date Note Type Note Provider Name and Address Organization Details Recorded Time 11/16/2024 text/html Generic HPI TemplateReported by Patient Remy Alanis MD [address], [place], [address], [facility] 11/16/2024 12:53:57 OBGyn Episode Ob Episode Information Episode Created Date Number of Fetuses Patient Bloodtype Patient rh Status Prepregnancy Weight lbs Domestic Partner Domestic Partner Phone Father Name Latent Print Examiner Status 10/20/19 25 1 O Negative 210.99 OPEN Fetus Data First Name Last Name Admitted to NICU Weight (g) Sex Living Outcome Pediatric Complications Fetus ID Race Codes Race Delivery Type [id number] Problems Problem Notes per [facility] antibody e p ending titers 11/25 MFM called Anti E low unable to run titers Problem Name Start Date End Date Resolution Snomed Code Not e Multigravida of advanced maternal age 0710/19/2024 687050836 >40 testing @ 36wks Uterine leiomyoma 10/19/2024 44596166 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 12/16/2024 162721617 [facility] lab with antibody titer q4, would need MCA dopplers and MFM notified if titer reaches 16 or greater Cervical incompetence 10/19/2024 0489012 5 cerclage in 2nd viable delivered at 38 weeks. MFM referral faxed 11/16 scheduled 11/17 sent to [facility] for evaluation cerclaged placed 11/18 [facility] scheduled for follow up & us 11/24 & 12/22 US & Consult & 01/03 0945 [facility] office Ramana Calculation Initial Ramana Date Initial Exam Date Initial Exam Provider Initial Ultrasound Date Last Menstrual Period Date Ultra Sound Weeks Gestation 10/19/2024 09/21/2024 8 Eighteen To Twenty Week Ramana Update Ultra Sound Date Fundal Height At Umbil Quickening Date Ultra Sound Latest Weeks Gestation Final Ramana Confirmed By Final Ramana Confirmed Date Final Ramana Date Ultra Sound Latest Days Gestation 12/14/19 25 19 [email or web address] 10/19/2024 05/01/19 26 0 Pre-evelyn Flowsheet Flowsheet Date 10/19/2024 Montejo Score Blood Edema Fundus Height Fundus Units Glucose Ketones Leukocytes Nitrite Labor Signs Protein Cervic Dilation Cervic Effacement Cervic Station Type Weight in lbs Pre/Post Dialysis Refused Weight 212.032238407935 BP Diastolic BP Location Tested BP Systolic BP Type 82 L arm 125 sitting Fetus Heart Rate Present Fetus Movement Comments this patient is a 39-year-ol d parous female at 12 weeks' gestation who presents for initial care. She has a history of term vaginal births. Her medical, surgical, obstetric history is unremarkable. She is vaccinated. She was given precautions recommendations for . We talked about vaccines in . Talked about care in detail. She is having genetic testing. She had a normal 12 week ultrasound. To begin routine care. Flowsheet Date 11/16/2024 Montejo Score Blood Edema Fundus Height Fundus Units Glucose Ketones Leukocytes Nitrite Labor Signs Protein Cervic Dilation Cervic Effacement Cervic Station Type Weight in lbs Pre/Post Dialysis Refused BP Diastolic BP Location Tested BP Systolic BP Type Fetus Heart Rate Present Fetus Movement Comments Flowsheet Date 11/16/2024 Montejo Score Blood Edema Fundus Height Fundus Units Glucose Ketones Leukocytes Nitrite Labor Signs Protein Cervic Dilation Cervic Effacement Cervic Station Type Weight in lbs Pre/Post Dialysis Refused 213.149530073930 BP Diastolic BP Location Tested BP Systolic BP Type 82 L arm 129 sitting Fetus Heart Rate Present A 144 Fetus Movement A Yes Comments to see MFM for history of ce rvical incompetence and cerclage. Currently has a dynamic cervix. It funnels down to 2.8 cm. Flowsheet Date 12/16/2024 Montejo Score Blood Edema Fundus Height Fundus Units Glucose Ketones Leukocytes Nitrite Labor Signs Protein Cervic Dilation Cervic Effacement Cervic Station Type Weight in lbs Pre/Post Dialysis Refused Weight 219.148902420829 BP Diastolic BP Location Tested BP Systolic BP Type 78 L arm 113 sitting Fetus Heart Rate Present A 139 Fetus Movement Comments no complaints, no problems, routine care, no contractions, no vaginal bleeding, no loss of fluid, no cramping Discussed transfer of care, will hold off on that and observe her situation. Cervix is now thinner, has cerclage, may have anti E antibody Flowsheet Date 01/10/2025 Montejo Score Blood Edema Fundus Height Fundus Units Glucose Ketones Leukocytes Nitrite Labor Signs Protein Cervic Dilation Cervic Effacement Cervic Station Type Weight in lbs Pre/Post Dialysis Refused Weight 221.489233457736 BP Diastolic BP Location Tested BP Systolic BP Type 72 L arm 112 sitting Fetus Heart Rate Present A 135 Present Fetus Movement A Yes Comments no complaints, no problems, routine care, no contractions, no vaginal bleeding, no loss of fluid, no cramping Flowsheet Date 02/07/2025 Montejo Score Blood Edema Fundus Height Fundus Units Glucose Ketones Leukocytes Nitrite Labor Signs Protein Cervic Dilation Cervic Effacement Cervic Station Type Weight in lbs Pre/Post Dialysis Refused BP Diastolic BP Location Tested BP Systolic BP Type Fetus Heart Rate Present Fetus Movement Comments Flowsheet Date 02/07/2025 Montejo Score Blood Edema Fundus Height Fundus Units Glucose Ketones Leukocytes Nitrite Labor Signs Protein Cervic Dilation Cervic Effacement Cervic Station Type Weight in lbs Pre/Post Dialysis Refused 220.386415262065 BP Diastolic BP Location Tested BP Systolic BP Type 73 L arm 110 sitting Fetus Heart Rate Present A Present Fetus Movement A Yes Comments Patient report BH contractio ns yesterday, irregular today. No bleeding or leakage of fluid. EFW 84%, cerclage seen on US. Vertex. GCT and labs at [place] today, needs to return for Rhogam. Discussed tdap. RTC 2 weeks. Menstrual History Last Menstrual Date Menses Monthly On Bcp Conception Prior Menses Frequency Hcg Plus Date Menarche Onset Age Delivery Information Delivery Date Delivery Type Labor Anesthesia Weeks Gestation Incision Type Labor Labor Length Hrs Delivered By Post Complications Tubal Sterilization Discharge Date Comments Discharge Information Feeding Method Contraceptive Method Maternal HG B and HCT Levels
--- OUTSIDE RECORDS SUMMARY | 2025-02-10 01:12 | XMS_ITS | Continuity of Care Document ---
Author Organization [facility], [place] Address [address] [place] [address] Assessment No assessment recorded. Plan of Treatment Reminders Order Date Submit Date Provider Last Modified By Organization Details Last Modified Time Details Appointments 3HR GLUCOSE 2024 09:00A M RN SCHEDULE Not available Not available Not available OB ROUTINE 2024 08:45A M Rachel ALANIS MD Not available Not available Not available Lab None recorded. Referral None recorded. Procedures None recorded. Surgeries None recorded. Imaging US, obstetric , follow-up [email or web address], [address], [place], [address], 02/07/2025 18:48:46 US, obstetric , transvagi nal 2024 [email or web address] [facility] [address], [address], [place], [address], 02/07/2025 18:48:46 Medication Orders None recorded. Patient TargetsNo targets recorded. Patient InstructionsNo instructions recorded. Reason for Referral None Reported. Results Created Date Observation Date Name Description Value Unit Range Abnormal Flag Note LastModifiedBy Organization Detail LastModifiedTime 10/26/1910/25/2024 [UNIT Y] ANEUP LOIDY NIPT fraction 3.7% normal Not Available Ken ruiz [address], [place], [address], 10/25/2024 17:33:14 10/26/1910/25/2024 [UNIT Y] ANEUP LOIDY NIPT 22Q11.2 microdeletio n LOW RISK <1 in 10,000 normal Not Available [facility] [address], [place], [address], 10/25/2024 17:33:14 10/26/19 25 10/25/2024 [UNIT Y] ANEUP LOIDY NIPT sex chromosome aneuploidy NOT DETECT ED normal Not Available [facility] [address], [place], [address], 10/25/2024 17:33:14 10/26/19 25 10/25/2024 [UNIT Y] ANEUP LOIDY NIPT monosomy X LOW RISK <1 in 10,000 normal Not Available [facility] [address], [place], [address], 10/25/2024 17:33:14 10/26/19 25 10/25/2024 [UNIT Y] ANEUP LOIDY NIPT trisomy 13 LOW RISK <1 in 10,000 normal Not Available [facility] [address], [place], [address], 10/25/2024 17:33:14 10/26/19 25 10/25/2024 [UNIT Y] ANEUP LOIDY NIPT trisomy 18 LOW RISK <1 in 10,000 normal Not Available [facility] [address], [place], [address], 10/25/2024 17:33:14 10/26/19 25 10/25/2024 [UNIT Y] ANEUP LOIDY NIPT trisomy 21 LOW RISK <1 in 10,000 normal Not Available [facility] [address], [place], [address], 10/25/2024 17:33:14 10/26/19 25 10/25/2024 [UNIT Y] ANEUP LOIDY NIPT sex MALE normal Not Available [facility] [address], [place], [address], 10/25/2024 17:33:14 10/26/19 25 10/25/2024 [UNIT Y] ANEUP LOIDY NIPT gestation SINGLE TON normal Not Available [facility] [address], [place], [address], 10/25/2024 17:33:14 10/26/19 25 10/25/2024 [UNIT Y] ANEUP LOIDY NIPT for detailed report, see pdf See PDF normal Not Available [facility] [address], [place], [address], 10/25/2024 17:33:14 10/27/19 25 10/26/2024 [UNIT Y] MADELYN Wilkins sickle cell disease/beta -thalassemia /hemoglobino pathies carrier screen NEGATI VE normal Not Available [facility] [address], [place], [address], 10/26/2024 02:27:18 10/27/19 25 10/26/2024 [UNIT Y] MADELYN Wilkins alpha-thalas semia carrier screen NEGATI VE normal Not Available [facility] [address], [place], [address], 10/26/2024 02:27:18 10/27/19 25 10/26/2024 [UNIT Y] MADELYN Wilkins cystic fibrosis carrier screen NEGATI VE normal Not Available [facility] [address], [place], [address], 10/26/2024 02:27:18 10/27/19 25 10/26/2024 [UNIT Y] MADELYN Wilkins spinal muscular atrophy carrier screen NEGATI VE 2 SMN1 copies , SNP not presen t normal Not Available [facility] [address], [place], [address], 10/26/2024 02:27:18 10/27/19 25 10/26/2024 [UNIT Y] MADELYN BERUMEN Franky for detailed report, see pdf See PDF normal Not Available [facility] [address], [place], [address], 10/26/2024 02:27:18 10/20/19 25 10/19/2024 CBC W/DIF F WBC 7.5 10'3/ uL 3.5-[address] [facility] (Lab) [address], [place], [address], 10/20/2024 15:03:15 10/20/19 25 10/19/2024 CBC W/DIF F RBC 4.11 10'6/ uL (based on docume nted legal sex) 3.80-[address] [facility] (Lab) [address], [place], [address], 10/20/2024 15:03:15 10/20/19 25 10/19/2024 CBC W/DIF F HGB 12.7 g/dL (based on docume nted legal sex) 11.6-[address] [facility] (Lab) [address], [place], [address], 10/20/2024 15:03:15 10/20/19 25 10/19/2024 CBC W/DIF F HCT 37.6 % (based on docume nted legal sex) 34.0-[address] [facility] (Lab) [address] , [place], [address], 10/20/2024 15:03:15 10/20/19 25 10/19/2024 CBC W/DIF F MCV 91.5 fL 80.0-[address] [facility] (Lab) [address], [place], [address], 10/20/2024 15:03:15 10/20/19 25 10/19/2024 CBC W/DIF F MCH 30.9 pg 27.0-[address] [facility] (Lab) [address], [place], [address], 10/20/2024 15:03:15 10/20/19 25 10/19/2024 CBC W/DIF F MCHC 33.8 g/dL 32.0-[address] [facility] (Lab) [address], [place], [address], 10/20/2024 15:03:15 10/20/19 25 10/19/2024 CBC W/DIF F RDW 11.8 % 11.0-[address] [facility] (Lab) [address], [place], [address], 10/20/2024 15:03:15 10/20/19 25 10/19/2024 CBC W/DIF F plt 260 10'3/ uL 150-[address] [facility] (Lab) [address], [place], [address], 10/20/2024 15:03:15 10/20/19 25 10/19/2024 CBC W/DIF F MPV 11.4 fL 8.8-[address] [facility] (Lab) [address], [place], [address], 10/20/2024 15:03:15 10/20/19 25 10/19/2024 CBC W/DIF F NRBC's 0.0 % 0.[address] [facility] (Lab) [address], [place], [address], 10/20/2024 15:03:15 10/20/19 25 10/19/2024 CBC W/DIF F absolute NRBCs 0.0 10'3/ uL no refere nce range establ ished Not Available [facility] (Lab) [address], [place], [address], 10/20/2024 15:03:15 10/20/19 25 10/19/2024 CBC W/DIF F neutrophils 67.3 % 34.0-[address] [facility] (Lab) [address], [place], [address], 10/20/2024 15:03:15 10/20/19 25 10/19/2024 CBC W/DIF F lymphocytes 21.8 % 15.0-[address] [facility] (Lab) [address], [place], [address], 10/20/2024 15:03:15 10/20/19 25 10/19/2024 CBC W/DIF F monocytes 7.0 % 1.0-[address] [facility] (Lab) [address], [place], [address], 10/20/2024 15:03:15 10/20/19 25 10/19/2024 CBC W/DIF F eosinophils 2.8 % 0.0-8. [address] [facility] (Lab) [address], [place], [address], 10/20/2024 15:03:15 10/20/19 25 10/19/2024 CBC W/DIF F basophils 0.4 % 0.0-2. [address] [facility] (Lab) [address] [place], [address], 10/20/2024 15:03:15 10/20/1910/19/2024 CBC W/DIF F immature granulocytes 0.7 % no define d refere nce range Immat ure Granu locyt es (IG) repre sents autom ated enume ratio n of Metam yeloc ytes, Myelo cytes and Promy elocy abhay when IG is < 5%. Blast s are not inclu ded in IG and repor verna separ ately if prese nt. Not Available [facility] (Lab) [address], [place], [address], 10/20/2024 15:03:15 10/20/19 25 10/19/2024 CBC W/DIF F absolute neutrophils 5.0 10'3/ uL 1.5-8. [address] [facility] (Lab) [address], [place], [address], 10/20/2024 15:03:15 10/20/1910/19/2024 CBC W/DIF F absolute lymphocytes 1.6 10'3/ uL 1.0-4. [address] [facility] (Lab) [address], [place], [address], 10/20/2024 15:03:15 10/20/19 25 10/19/2024 CBC W/DIF F absolute monocytes 0.5 10'3/ uL 0.2-1. [address] [facility] (Lab) [address], [place], [address], 10/20/2024 15:03:15 10/20/19 25 10/19/2024 CBC W/DIF F absolute eosinophils 0.2 10'3/ uL 0.0-0. [address] [facility] (Lab) [address], [place], [address], 10/20/2024 15:03:15 10/20/19 25 10/19/2024 CBC W/DIF F absolute basophils 0.0 10'3/ uL 0.0-0. [address] [facility] (Lab) [address] [place], [address], 10/20/2024 15:03:15 10/20/1910/19/2024 CBC W/DIF F absolute immature granulocytes 0.1 10'3/ uL 0.00-0 .10 Refer ence range s for nonbi nary/ inter sex or unspe cifie d gende r patie nts have not been estab lishe d. Pleas e refer to the [facility] table for range s estab lishe d for cisge nder patie nts and evalu ate in the clini louisa josé xt of the indiv idual patie nt: https ://nikia matos book. nm.or g/gen derx Not Available [facility] (Lab) [address], [place], [address], 10/20/2024 15:03:15 10/20/1910/19/2024 HEPAT ITIS B SURFA CE ANTIG EN hepatitis B surface antigen Non-re active non-re active This assay was perfo rmed using [employer] ratio n reage nts and test kits. Value s obtai thai with other assay metho ds or kits canno t be used inter sky eably . Not Available [facility] (Lab) [address], [place], [address], 10/20/2024 15:03:15 10/20/1910/19/2024 HIV 1/2 ANTIG EN/AN TIBOD Y, REFLE X CONFI RMATI ON HIV antigen/anti body Nonrea ctive nonrea ctive HIV-1 antig en and HIV-1 /HIV- 2 antib odies were not detec verna. No labor atory evide nce of HIV infec tion. Not Available [facility] (Lab) [address], [place], [address], 10/20/2024 15:03:16 10/20/1910/19/2024 HEPAT ITIS C ANTIB CHAYA SCREE N, REFLE X TO CONFI RMATI ON hepatitis C antibody Non-re active non-re active Antib odies to HCV Not Detec verna, does not exclu de the possi bilit y of expos ure to HCV. Not Available [facility] (Lab) [address], [place], [address], 10/20/2024 15:03:17 10/20/1910/19/2024 RUBEL LA IGG ANTIB CHAYA, QUANT rubella antibodies, IgG Reacti ve reacti ve Not Available [facility] (Lab) [address], [place], [address], 10/20/2024 15:03:17 10/20/1910/19/2024 RUBEL LA IGG ANTIB CHAYA, QUANT rubella antibodies, IgG quant 17.7 IU/mL >=10 Non-r eacti ve (Non- Immun e) <10 IU/mL React kurtis (Immu ne) > or = 10 IU/mL Not Available [facility] (Lab) [address], [place], [address], 10/20/2024 15:03:17 10/20/1910/19/2024 RPR SCREE N, REFLE X TITER /CONF IRMAT ION RPR qualitative Nonrea ctive nonrea ctive Not Available [facility] (Lab) [address], [place], [address], 10/20/2024 15:03:18 10/20/19 25 10/19/2024 HEMOG LOBIN [...] >8.0% Actio n sugge sted Not Available [facility] (Lab) [address], [place], [address], 10/20/2024 15:03:18 10/20/1910/19/2024 CULTU RE: URINE result report SEE RESULT S BELOW Test: Cultu re: Urine Speci men Sourc e: Urine Voide d Speci men Type: Urine Speci men Date: 2024 1335 Resul t Date: 2024 0540 Resul t Statu s: Final resul t Abnor mal: No Resul ting Lab: [facility] [address] [facility] [address] Tel: CULTU RE ----- ----- ----- --- No growt h in 1 day (dete ction level of 10,00 0 colon ies / ml.) Not Available [facility] (Lab) [address], [place], [address], 10/21/2024 06:45:38 10/20/19 25 10/19/2024 US, obste tric, nucha l trans lucen cy No observ ation record ed. [email or web address] [address], [place], [address], 10/19/2024 15:07:17 10/20/19 25 10/19/2024 US, obste tric, follo w-up No observ ation record ed. [email or web address] Robyn [address], [place], [address], 11/05/2024 09:32:39 11/17/19 25 11/16/2024 US, obste tric, limit ed No observ ation record ed. [email or web address] [place] [address], [place], [address], 11/16/2024 15:57:26 11/17/19 25 11/16/2024 US, obste tric, trans vagin al No observ ation record ed. [email or web address] [place] [address], [place], [address], 11/16/2024 15:57:36 11/17/19 25 11/16/2024 US, obste tric, limit ed No observ ation record ed. [email or web address] Robyn [address], [place], [address], 11/17/2024 14:50:26 11/20/19 25 11/18/2024 US, obste tric, follo w-up No observ ation record ed. [facility] [address] [place], [address], 12/24/2024 13:52:16 11/25/1911/24/2024 US, obste tric, follo w-up No observ ation record ed. [facility] [address], [place], [address], 11/24/2024 16:49:35 12/07/19 25 12/06/2024 US, obste tric, 1st trime ster, singl e gesta tion No observ ation record ed. [email or web address] [facility] [address] [place] [address], [address], 12/08/2024 18:03:29 12/08/1912/06/2024 US, obste tric, 1st trime ster, singl e gesta tion No observ ation record ed. [email or web address] [address] [place] [address], [address], 12/14/2024 17:41:48 12/14/1912/13/2024 US, obste tric, follo w-up No observ ation record ed. [email or web address] [facility] [address] [place] [address], [address], 12/15/2024 13:00:03 01/04/2001/03/2025 US, obste tric, 1st trime ster, singl e gesta tion No observ ation record ed. [email or web address] [facility] [address] [place] [address], [address], 01/03/2025 17:23:45 01/04/2001/03/2025 US, obste tric, 1st trime ster, singl e gesta tion No observ ation record ed. [email or web address] [facility] [address], [address], 01/14/2025 14:15:31 01/15/20 25 01/14/2025 US, obste tric, follo w-up No observ ation record ed. [email or web address] [facility] [address] [place], [address], 01/18/2025 12:02:30 01/15/20 25 01/14/2025 US, obste tric, 1st trime ster, singl e gesta tion No observ ation record ed. [email or web address] [facility] [address] [place], [address], 01/18/2025 12:03:05 01/15/20 25 01/14/2025 US, obste tric, 1st trime ster, singl e gesta tion No observ ation record ed. [email or web address] [facility] [address] [place] [address], [address], 01/18/2025 12:05:42 02/08/20 25 02/07/2025 US, obste tric, follo w-up No observ ation record ed. [email or web address] Carlson [address] [place] [address] [address], [place], [address], 02/09/2025 13:34:32 02/08/20 25 02/07/2025 US, obste tric, follo w-up No observ ation record ed. [email or web address] [place] [address], [place], [address], 02/07/2025 15:52:03 02/08/20 25 02/07/2025 US, obste tric, trans vagin al No observ ation record ed. [email or web address] [place] [address], [place], [address], 02/07/2025 15:52:15 Result Notes None recorded. Problems Name Problem SNOMED Code Status Onset Date Resolution Date Notes Provider Name and Address Organization Details Recorded Time 98842529 Active [address] [facility] 5 11:28:54 Multigrav sam of advanced maternal age 714774064 Active 2024 >40 testing @ 36wks Gretta peñaloza, [facility] 5 09:33:09 Cervical incompete nce 67951743 Active 2024 cerclage in 2nd viable delivered at 38 weeks. MFM referral faxed 11/16 scheduled 11/17 sent to [facility] for evaluatio n cerclaged placed 11/18 [facility] scheduled for follow up & us 11/24 & 12/22 US & Consult & 01/03 0945 [facility] office Gretta Mejia [facility] 5 13:54:31 Uterine leiomyoma 54797443 Active 2024 Remy Alanis MD [address], [place], [address], [facility] 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 5 11:31:16 Problem Notes None recorded. Procedures Surgical History Date Name Laterality Status Provider Name and Address Organization Details Recorded Time 5 Date of Last Pap Smear completed Vivian Joaquin [facility] 10/19/2024 11:28:22 2 Nexplanon Removal completed Roxy Lozano MD [address], [place], [address], [facility] 08/06/2021 16:08:17 Imaging Results None recorded. [...] and Address Organization Details Last Updated DateTime 02/07/2025 41826.3214 g 110/73 mm[Hg] Dulce Valdez [facility] 02/07/2025 14:29:26 Social History Question Answer Notes LastModified by Organizat ion Details LastModified Time Tobacco Smoking Status Never Smoker Dolores Rodriguez [facility] 07/18/2021 14:18:06 In The 14 Days [...] ICD10 Code Diagnosis IMO Codes Diagnosis Note [id number] Remy Alanis MD [place] [address],[place] [address] 01/10/2025 13:31:58 01/10/2025 14:42:34 care status 325441104 Z34.82 [id number] Remy Alanis MD [place] [address],[place] [address] 02/07/2025 13:34:39 02/07/2025 14:28:47 High risk 51087739 O09.213 O09.523 O99.213 O36.63X0 [id number] YAZMIN ISABEL MD [place] [address],[place] [address] 02/07/2025 14:14:33 02/07/2025 14:48:51 Multigravida of advanced maternal age 607701930 O09.521 13782251 Cervical incompetence 17 139946 N88.3 54544 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 142555796 O36.0990 23850904 Gestation period, 28 weeks 13960807 Z3A.28 [id number] Health Concerns Section Related Observation LastModified by Organization Detai ls LastModified Time None Recorded Concern Status LastModified by Organization Details LastModified Time None Recorded Payers Encounter Date Sequence Insurance Name Policy Number Policy Pineda Covered Member ID Pineda Member ID Guarantor Name 02/07/2025 1 [facility] [id number] Jose Ernst [id number] Eleni Kirkland Notes Date Note Type Note Provider Name and Address Organization Details Recorded Time 02/07/2025 text/html Generic HPI TemplateReported by Patient YAZMIN ISABEL MD [address], [place], [address], [facility] 02/07/2025 14:45:45 OBGyn Episode Ob Episode Information Episode Created Date Number of Fetuses Patient Bloodtype Patient rh Status Prepregnancy Weight lbs Domestic Partner Domestic Partner Phone Father Name Learning Officer Status 07/29/20 25 1 O Negative 210.99 OPEN Fetus Data First Name Last Name Admitted to NICU Weight (g) Sex Living Outcome Pediatric Complications Fetus ID Race Codes Race Delivery Type 08256 Problems Problem Notes per [facility] antibody e p ending titers 11/25 MFM called Anti E low unable to run titers Problem Name Start Date End Date Resolution Snomed Code Not e Multigravida of advanced maternal age 0710/19/2024 425735905 >40 testing @ 36wks Uterine leiomyoma 10/19/2024 75067443 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 MFM referral faxed 11/16 scheduled 11/17 sent to [facility] for evaluation cerclaged placed 11/18 [facility] scheduled for follow up & us 11/24 & 12/22 US & Consult & 01/03 0945 [facility] office Ramana Calculation Initial Ramana Date Initial [...] 25 19 [email or web address] 10/19/2024 05/01/19 26 0 Pre- Flowsheet Flowsheet Date 10/19/2024 Montejo Score Blood Edema Fundus Height Fundus Units Glucose Ketones Leukocytes Nitrite Labor Signs Protein Cervic Dilation Cervic Effacement Cervic Station Type Weight in lbs Pre/Post Dialysis Refused Weight 212.744508466272 BP Diastolic BP Location Tested BP Systolic [...] Type Weight in lbs Pre/Post Dialysis Refused 213.385754077439 BP Diastolic BP Location Tested BP Systolic [...] Weight in lbs Pre/Post Dialysis Refused Weight 219.262671676125 BP Diastolic BP Location Tested BP Systolic [...] Weight in lbs Pre/Post Dialysis Refused Weight 221.946509780253 BP Diastolic BP Location Tested BP Systolic [...] Type Weight in lbs Pre/Post Dialysis Refused 220.504737315876 BP Diastolic BP Location Tested BP Systolic BP Type 73 L arm 110 sitting Fetus Heart Rate Present A Present Fetus Movement A Yes Comments Patient report BH contractio ns yesterday, irregular today. No bleeding or leakage of fluid. EFW 84%, cerclage seen on US. Vertex. GCT and labs at [place] today, needs to return for Rhogam. Discussed [...]
--- OUTSIDE RECORDS SUMMARY | 2025-02-10 01:12 | XMS_ITS | Continuity of Care Document ---
Author Organization [facility] [place], [place] Address [address] [place] [address] Assessment No assessment recorded. Plan of Treatment [...] Not Available [facility] [address], [place], [address], 10/25/2024 17:33:14 10/26/1910/25/2024 [UNIT Y] ANEUP LOIDY NIPT 22Q11.2 microdeletio n LOW RISK <1 in 10,000 normal Not Available [facility] [address], [place], [address], 10/25/2024 17:33:14 10/26/19 25 10/25/2024 [UNIT Y] ANEUP LOIDY NIPT sex chromosome aneuploidy NOT DETECT ED normal Not Available [facility] [address], [place], [address], 10/25/2024 17:33:14 10/26/19 25 10/25/2024 [UNIT Y] ANEUP LOIDY NIPT monosomy X LOW RISK <1 in 10,000 normal Not Available [facility] [address], [place], [address], 10/25/2024 17:33:14 10/26/19 25 10/25/2024 [UNIT Y] ANEUP LOIDY NIPT trisomy 13 LOW RISK <1 in 10,000 normal Not Available [facility] [address], [place], [address], 10/25/2024 17:33:14 10/26/19 25 10/25/2024 [UNIT Y] ANEUP LOIDY NIPT trisomy 18 LOW RISK <1 in 10,000 normal Not Available [facility] [address], [place], [address], 10/25/2024 17:33:14 10/26/19 25 10/25/2024 [UNIT Y] ANEUP LOIDY NIPT trisomy 21 LOW RISK <1 in 10,000 normal Not Available [facility] [address], [place], [address], 10/25/2024 17:33:14 10/26/19 25 10/25/2024 [UNIT Y] ANEUP LOIDY NIPT sex MALE normal Not Available [facility] [address], [place], [address], 10/25/2024 17:33:14 10/26/19 25 10/25/2024 [UNIT Y] ANEUP LOIDY NIPT gestation SINGLE TON normal Not Available [facility] [address], [place], [address], 10/25/2024 17:33:14 10/26/19 25 10/25/2024 [UNIT Y] ANEUP LOIDY NIPT for detailed report, see pdf See PDF normal Not Available [facility] [address], [place], [address], 10/25/2024 17:33:14 10/27/19 25 10/26/2024 [UNIT Y] MADELYN Wilkins sickle cell disease/beta -thalassemia /hemoglobino pathies carrier screen NEGATI VE normal Not Available [facility] [address], [place], [address], 10/26/2024 02:27:18 10/27/19 25 10/26/2024 [UNIT Y] MADELYN Wilkins alpha-thalas semia carrier screen NEGATI VE normal Not Available [facility] [address], [place], [address], 10/26/2024 02:27:18 10/27/19 25 10/26/2024 [UNIT Y] MADELYN Wilkins cystic fibrosis carrier screen NEGATI VE normal Not Available [facility] [address], [place], [address], 10/26/2024 02:27:18 10/27/19 25 10/26/2024 [UNIT Y] MADELYN Wilkins spinal muscular atrophy carrier screen NEGATI VE 2 SMN1 copies , SNP not presen t normal Not Available [facility] [address], [place], [address], 10/26/2024 02:27:18 10/27/19 25 10/26/2024 [UNIT Y] MADELYN Wilkins for detailed report, see pdf See PDF normal Not Available [facility] [address], [place], [address], 10/26/2024 02:27:18 10/20/19 25 10/19/2024 CBC W/DIF F WBC 7.5 10'3/ uL 3.5-10 .5 Not Available [facility] (Lab) [address], [place], [address], 10/20/2024 15:03:15 07/29/20 25 10/19/2024 CBC W/DIF F RBC 4.11 10'6/ uL (based on docume nted legal sex) 3.80-5 .20 Not Available [facility] (Lab) [address], [place], [address], 10/20/2024 15:03:15 10/20/19 25 10/19/2024 CBC W/DIF F HGB 12.7 g/dL (based on docume nted legal sex) 11.6-1 5.4 Not Available [facility] (Lab) [address], [place], [address], 10/20/2024 15:03:15 10/20/19 25 10/19/2024 CBC W/DIF F HCT 37.6 % (based on docume nted legal sex) 34.0-4 5.0 Not Available [facility] (Lab) [address], [place], [address], 10/20/2024 15:03:15 10/20/19 25 10/19/2024 CBC W/DIF F MCV 91.5 fL 80.0-9 9.0 Not Available [facility] (Lab) [address], [place], [address], 10/20/2024 15:03:15 10/20/19 25 10/19/2024 CBC W/DIF F MCH 30.9 pg 27.0-3 4.0 Not Available [facility] (Lab) [address], [place], [address], 10/20/2024 15:03:15 10/20/19 25 10/19/2024 CBC W/DIF F MCHC 33.8 g/dL 32.0-3 5.5 Not Available [facility] (Lab) [address] [place], [address], 10/20/2024 15:03:15 10/20/19 25 10/19/2024 CBC W/DIF F RDW 11.8 % 11.0-1 5.0 Not Available [facility] (Lab) [address], [place], [address], 10/20/2024 15:03:15 10/20/19 25 10/19/2024 CBC W/DIF F plt 260 10'3/ uL 150-40 0 Not Available [facility] (Lab) [address], [place], [address], 10/20/2024 15:03:15 10/20/19 25 10/19/2024 CBC W/DIF F MPV 11.4 fL 8.8-12 .1 Not Available [facility] (Lab) [address], [place], [address], 10/20/2024 15:03:15 10/20/19 25 10/19/2024 CBC W/DIF F NRBC's 0.0 % 0.0 Not Available [facility] (Lab) [address], [place], [address], 10/20/2024 15:03:15 10/20/19 25 10/19/2024 CBC W/DIF F absolute NRBCs 0.0 10'3/ uL no refere nce range establ ished Not Available [facility] (Lab) [address], [place], [address], 10/20/2024 15:03:15 10/20/19 25 10/19/2024 CBC W/DIF F neutrophils 67.3 % 34.0-7 3.0 Not Available [facility] (Lab) [address], [place], [address], 10/20/2024 15:03:15 10/20/19 25 10/19/2024 CBC W/DIF F lymphocytes 21.8 % 15.0-5 0.0 Not Available [facility] (Lab) [address], [place], [address], 10/20/2024 15:03:15 10/20/19 25 10/19/2024 CBC W/DIF F monocytes 7.0 % 1.0-15 .0 Not Available [facility] (Lab) [address], [place], [address], 10/20/2024 15:03:15 10/20/19 25 10/19/2024 CBC W/DIF F eosinophils 2.8 % 0.0-8. 0 Not Available [facility] (Lab) [address], [place], [address], 10/20/2024 15:03:15 10/20/19 25 10/19/2024 CBC W/DIF F basophils 0.4 % 0.0-2. 0 Not Available [facility] (Lab) [address], [place], [address], 10/20/2024 15:03:15 10/20/19 25 10/19/2024 CBC W/DIF [...] separ ately if prese nt. Not Available [facility] (Lab) [address], [place], [address], 10/20/2024 15:03:15 10/20/1910/19/2024 CBC W/DIF F absolute neutrophils 5.0 10'3/ uL 1.5-8. 0 Not Available [facility] (Lab) [address], [place], [address], 10/20/2024 15:03:15 10/20/1910/19/2024 CBC W/DIF F absolute lymphocytes 1.6 10'3/ uL 1.0-4. 0 Not Available [facility] (Lab) [address], [place], [address], 10/20/2024 15:03:15 10/20/1910/19/2024 CBC W/DIF F absolute monocytes 0.5 10'3/ uL 0.2-1. 0 Not Available [facility] (Lab) [address], [place], [address], 10/20/2024 15:03:15 10/20/1910/19/2024 CBC W/DIF F absolute eosinophils 0.2 10'3/ uL 0.0-0. 6 Not Available [facility] (Lab) [address], [place], [address], 10/20/2024 15:03:15 10/20/1910/19/2024 CBC W/DIF F absolute basophils 0.0 10'3/ uL 0.0-0. 3 Not Available [facility] (Lab) [address], [place], [address], 10/20/2024 15:03:15 10/20/1910/19/2024 CBC W/DIF F absolute immature granulocytes 0.1 10'3/ uL 0.00-0 .10 Refer ence range s for nonbi nary/ inter sex or unspe cifie d gende r patie nts have not been estab lishe d. Pleas e refer [facility] [place] table for range s estab lishe d for cisge nder patie nts and evalu ate in the clini louisa josé xt of the indiv idual patie nt: https ://nikia matos book. nm.or g/gen derx Not Available [facility] (Lab) [address], [place], [address], 10/20/2024 15:03:15 10/20/1910/19/2024 HEPAT ITIS B SURFA CE ANTIG EN hepatitis B surface antigen Non-re active non-re active This assay was perfo rmed using [employer] ratio n reage nts and test kits. Value s obtai thai with other assay metho ds or kits canno t be used inter sky eably . Not Available [facility] (Lab) [address], [place], [address], 10/20/2024 15:03:15 10/20/1910/19/2024 HIV 1/2 ANTIG EN/AN TIBOD Y, REFLE X CONFI RMATI ON HIV antigen/anti body Nonrea ctive nonrea ctive HIV-1 antig en and HIV-1 /HIV- 2 antib odies were not detec verna. No labor atory evide nce of HIV infec tion. Not Available [facility] (Lab) [address], [place], [address], 10/20/2024 15:03:16 10/20/1910/19/2024 HEPAT ITIS C ANTIB CHAYA SCREE N, REFLE X TO CONFI RMATI ON hepatitis C antibody Non-re active non-re active Antib odies to HCV Not Detec verna, does not exclu de the possi bilit y of expos ure to HCV. Not Available [facility] (Lab) [address], [place], [address], 10/20/2024 15:03:17 10/20/1910/19/2024 RUBEL LA IGG ANTIB CHAYA, QUANT rubella antibodies, IgG Reacti ve reacti ve Not Available [facility] (Lab) [address], [place], [address], 10/20/2024 15:03:17 10/20/1910/19/2024 RUBEL LA IGG ANTIB CHAYA, QUANT rubella antibodies, IgG quant 17.7 IU/mL >=10 Non-r eacti ve (Non- Immun e) <10 IU/mL React kurtis (Immu ne) > or = 10 IU/mL Not Available [facility] (Lab) [address], [place], [address], 10/20/2024 15:03:17 10/20/19 25 10/19/2024 RPR SCREE N, REFLE X TITER /CONF IRMAT ION RPR qualitative Nonrea ctive nonrea ctive Not Available [facility] (Lab) [address] , [place], [address], 10/20/2024 15:03:18 10/20/19 25 10/19/2024 HEMOG LOBIN [...] >8.0% Actio n sugge sted Not Available [facility] (Lab) [address] , [place], [address], 10/20/2024 15:03:18 10/20/1910/19/2024 CULTU RE: URINE result report SEE RESULT S BELOW Test: Cultu re: Urine Speci men Sourc e: Urine Voide d Speci men Type: Urine Speci men Date: 2024 1335 Resul t Date: 2024 0540 Resul t Statu s: Final resul t Abnor mal: No Resul ting Lab: [facility] [address] [facility] [address] Tel: CULTU RE ----- ----- ----- --- No growt h in 1 day (dete ction level of 10,00 0 colon ies / ml.) Not Available [facility] (Lab) [address] , [place], [address], 10/21/2024 06:45:38 10/20/19 25 10/19/2024 US, obste tric, nucha l trans lucen cy No observ ation record ed. [facility] [address], [place], [address], 10/19/2024 15:07:17 10/20/19 25 10/19/2024 US, obste tric, follo w-up No observ ation record ed. [email or web address] [facility] [address], [place], [address], 11/05/2024 09:32:39 11/17/19 25 11/16/2024 US, obste tric, limit ed No observ ation record ed. [email or web address] [place] [address], [place], [address], 11/16/2024 15:57:26 11/17/19 25 11/16/2024 US, obste tric, trans vagin al No observ ation record ed. [email or web address] [place] [address], [place], [address], 11/16/2024 15:57:36 11/17/19 25 11/16/2024 US, obste tric, limit ed No observ ation record ed. [email or web address] [place] [address], [place], [address], 11/17/2024 14:50:26 11/20/19 25 11/18/2024 US, obste tric, follo w-up No observ ation record ed. [email or web address] [facility] [address], [place], [address], 12/24/2024 13:52:16 11/25/19 25 11/24/2024 US, obste tric, follo w-up No observ ation record ed. [email or web address] [facility] [address], [place], [address], 11/24/2024 16:49:35 12/07/19 25 12/06/2024 US, obste tric, 1st trime ster, singl e gesta tion No observ ation record ed. [email or web address] [facility] [address], [address], 12/08/2024 18:03:29 12/08/19 25 12/06/2024 US, obste tric, 1st trime ster, singl e gesta tion No observ ation record ed. [email or web address] [facility] [address], [address], 12/14/2024 17:41:48 12/14/1912/13/2024 US, obste tric, follo w-up No observ ation record ed. [email or web address] [facility] [address], [address], 12/15/2024 13:00:03 01/04/2001/03/2025 US, obste tric, 1st trime ster, singl e gesta tion No observ ation record ed. [facility] [address], [address], 01/03/2025 17:23:45 01/04/2001/03/2025 US, obste tric, 1st trime ster, singl e gesta tion No observ ation record ed. [email or web address] [facility] [address], [address], 01/14/2025 14:15:31 01/15/20 25 01/14/2025 US, obste tric, follo w-up No observ ation record ed. [email or web address] [facility] [address], [address], 01/18/2025 12:02:30 01/15/20 25 01/14/2025 US, obste tric, 1st trime ster, singl e gesta tion No observ ation record ed. [email or web address] [facility] [address] [place], [address], 01/18/2025 12:03:05 01/15/20 25 01/14/2025 US, obste tric, 1st trime ster, singl e gesta tion No observ ation record ed. [email or web address] [facility] [address] [place] [address], [address], 01/18/2025 12:05:42 02/08/20 25 02/07/2025 US, obste tric, follo w-up No observ ation record ed. [email or web address] Carlson [address], [place], [address], 02/09/2025 13:34:32 02/08/20 25 02/07/2025 US, obste tric, follo w-up No observ ation record ed. [email or web address] [place] [address], [place], [address], 02/07/2025 15:52:03 02/08/20 25 02/07/2025 US, obste tric, trans vagin al No observ ation record ed. [email or web address] [place] [address], [place], [address], 02/07/2025 15:52:15 Result Notes None recorded. Problems Name Problem SNOMED Code Status Onset Date Resolution Date Notes Provider Name and Address Organization Details Recorded Time 03980606 Active 2024 Vivian peñaloza [facility] 5 11:28:54 Multigrav sam of advanced maternal age 884889066 Active 2024 >40 testing @ 36wks Gretta peñaloza, [facility] 5 09:33:09 Cervical incompete nce 70783295 Active 2024 cerclage in 2nd viable delivered at 38 weeks. [facility] referral faxed 11/16 scheduled 11/17 sent to [facility] for evaluatio n cerclaged placed 11/18 [facility] scheduled for follow up & us 11/24 & 12/22 & Consult & 01/03 09 [facility] office Gretta Mejia [facility], [facility] 5 13:54:31 Uterine leiomyoma 28080640 Active 2024 Remy Alanis MD [address], [place], [address], [facility] 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 5 11:31:16 Problem Notes None recorded. Procedures Surgical History Date Name Laterality Status Provider Name and Address Organization Details Recorded Time 5 Date of Last Pap Smear completed Vivian Nuñez [facility] 10/19/2024 11:28:22 2 Nexplanon Removal completed Roxy Lozano MD [address], [place], [address], [facility] 08/06/2021 16:08:17 Imaging Results None recorded. [...] Address Organization Details Last Updated DateTime 02/07/2025 22147.3214 g 110/73 mm[Hg] Dulce Valdez [facility] 02/07/2025 14:29:26 Social History Question Answer Notes LastModified by [email or web address] Details LastModified Time Tobacco Smoking Status Never [facility]2021 14:18:06 In The 14 Days [...] Functional Status Question Answer Note LastModified by [email or web address] ion Details LastModified Time Do you or [...] ICD10 Code Diagnosis IMO Codes Diagnosis Note [id number] MD Kaylie Forrester [address],[place] [address] 01/10/2025 13:31:58 01/10/2025 14:42:34 care status 066912942 Z34.82 [id number] MD Kaylie Forrester [address],[place] [address] 02/07/2025 13:34:39 02/07/2025 14:28:47 High risk 49032002 O09.213 O09.523 O99.213 O36.63X0 23811254 [id number] YAZMIN ISABEL MD [place] [address],[place] [address] 02/07/2025 14:14:33 02/07/2025 14:48:51 Multigravida of advanced maternal age 463213925 O09.521 78453033 Cervical incompetence 17 285895 N88.3 48861 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 423721989 O36.0990 59157722 Gestation period, 28 weeks 23367151 Z3A.28 [id number] Health Concerns Section Related Observation LastModified by Organization Detai ls LastModified Time None Recorded Concern Status LastModified by Organization Details LastModified Time None Recorded Payers Encounter Date Sequence Insurance Name Policy Number Policy Pineda Covered Member ID Pineda Member ID Guarantor Name 02/07/2025 1 [facility] [id number] Jose Ernst [id number] Eleni [facility] Notes Date Note Type Note Provider Name and Address Organization Details Recorded Time 02/07/2025 text/html Generic HPI TemplateReported by Patient YAZMIN ISABEL MD [address], [place], [address], [facility] 02/07/2025 14:45:45 OBGyn Episode Ob Episode Information Episode Created Date Number of Fetuses Patient Bloodtype Patient rh Status Prepregnancy Weight lbs Domestic Partner Domestic Partner Phone Father Name Penology Professor Status 10/20/19 25 1 O Negative 210.99 OPEN Fetus Data First Name Last Name Admitted to NICU Weight (g) Sex Living Outcome Pediatric Complications Fetus ID Race Codes Race Delivery Type [id number] Problems Problem Notes per [facility] antibody e p ending titers 11/25 MFM called Anti E low unable to run titers Problem Name Start Date End Date Resolution Snomed Code Not e Multigravida of advanced maternal age 0710/19/2024 277933721 >40 testing @ 36wks Uterine leiomyoma 10/19/2024 12670696 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 [facility] referral faxed 11/16 scheduled 11/17 sent to [facility] for evaluation cerclaged placed 11/18 [facility] scheduled for follow up & us 11/24 & 12/22 US & Consult & 01/03 0945 [facility] office Ramana Calculation Initial Ramana Date Initial [...] Weight in lbs Pre/Post Dialysis Refused Weight 212.654857071416 BP Diastolic BP Location Tested BP Systolic [...] Type Weight in lbs Pre/Post Dialysis Refused 213.112553509754 BP Diastolic BP Location Tested BP Systolic [...] Weight in lbs Pre/Post Dialysis Refused Weight 219.079613698616 BP Diastolic BP Location Tested BP Systolic [...] Weight in lbs Pre/Post Dialysis Refused Weight 221.821119763166 BP Diastolic BP Location Tested BP Systolic [...] Type Weight in lbs Pre/Post Dialysis Refused 220.740439840033 BP Diastolic BP Location Tested BP Systolic BP Type 73 L arm 110 sitting Fetus Heart Rate Present A Present Fetus Movement A Yes Comments Patient report BH contractio ns yesterday, irregular today. No bleeding or leakage of fluid. EFW 84%, cerclage seen on US. Vertex. GCT and labs at [place] today, needs to return for Rhogam. Discussed [...]
--- OUTSIDE RECORDS SUMMARY | 2025-02-10 01:12 | XMS_ITS | Continuity of Care Document ---
Author Organization [facility] [place], [facility] Address [address] [place] [address] Assessment No assessment recorded. Plan of Treatment [...] Surgeries None recorded. Imaging US, obstetric , limited 2024 025 [email or web address] [facility], [address], [place], [address], 11/17/2024 11:55:37 US, obstetric , transvagi nal 2024 025 [email or web address] [facility] [address], [place], [address], 11/17/2024 11:55:37 Medication Orders None recorded. Patient TargetsNo targets recorded. Patient InstructionsNo instructions recorded. Reason for Referral None Reported. Results Created Date Observation Date Name Description Value Unit Range Abnormal Flag Note LastModifiedBy Organization Detail LastModifiedTime 10/26/1910/25/2024 [UNIT Y] ANEUP LOIDY NIPT fraction 3.7% normal Not Available [facility] [address], [place], [address], 10/25/2024 17:33:14 10/26/1910/25/2024 [UNIT Y] ANEUP LOIDY NIPT 22Q11.2 microdeletio n LOW RISK <1 in 10,000 normal Not Available [facility] [address], [place], [address], 10/25/2024 17:33:14 10/26/19 25 10/25/2024 [UNIT Y] ANEUP LOIDY NIPT sex chromosome aneuploidy NOT DETECT ED normal Not Available [facility] [address], [place], [address], 10/25/2024 17:33:14 10/26/19 25 10/25/2024 [UNIT Y] ANEUP LOIDY NIPT monosomy X LOW RISK <1 in 10,000 normal Not Available [facility] [address], [place], [address], 10/25/2024 17:33:14 10/26/19 25 10/25/2024 [UNIT Y] ANEUP LOIDY NIPT trisomy 13 LOW RISK <1 in 10,000 normal Not Available [facility] [address], [place], [address], 10/25/2024 17:33:14 10/26/19 25 10/25/2024 [UNIT Y] ANEUP LOIDY NIPT trisomy 18 LOW RISK <1 in 10,000 normal Not Available [facility] [address], [place], [address], 10/25/2024 17:33:14 10/26/19 25 10/25/2024 [UNIT Y] ANEUP LOIDY NIPT trisomy 21 LOW RISK <1 in 10,000 normal Not Available [facility] [address], [place], [address], 10/25/2024 17:33:14 10/26/19 25 10/25/2024 [UNIT Y] ANEUP LOIDY NIPT sex MALE normal Not Available [facility] [address], [place], [address], 10/25/2024 17:33:14 10/26/19 25 10/25/2024 [UNIT Y] ANEUP LOIDY NIPT gestation SINGLE TON normal Not Available [facility] [address], [place], [address], 10/25/2024 17:33:14 10/26/19 25 10/25/2024 [UNIT Y] ANEUP LOIDY NIPT for detailed report, see pdf See PDF normal Not Available [facility] [address], [place], [address], 10/25/2024 17:33:14 10/27/19 25 10/26/2024 [UNIT Y] MADELYN Wilkins sickle cell disease/beta -thalassemia /hemoglobino pathies carrier screen NEGATI VE normal Not Available [facility] [address], [place], [address], 10/26/2024 02:27:18 10/27/19 25 10/26/2024 [UNIT Y] MADELYN Wilkins alpha-thalas semia carrier screen NEGATI VE normal Not Available [facility] [address], [place], [address], 10/26/2024 02:27:18 10/27/19 25 10/26/2024 [UNIT Y] MADELYN Wilkins cystic fibrosis carrier screen NEGATI VE normal Not Available [facility] [address], [place], [address], 10/26/2024 02:27:18 10/27/19 25 10/26/2024 [UNIT Y] MADELYN Wilkins spinal muscular atrophy carrier screen NEGATI VE 2 SMN1 copies , SNP not presen t normal Not Available [facility] [address], [place], [address], 10/26/2024 02:27:18 10/27/19 25 10/26/2024 [UNIT Y] MADELYN Wilkins for detailed report, see pdf See PDF normal Not Available [facility] [address], [place], [address], 10/26/2024 02:27:18 10/20/19 25 10/19/2024 CBC W/DIF F WBC 7.5 10'3/ uL 3.5-10 .5 Not Available [facility] (Lab) [address], [place], [address], 10/20/2024 15:03:15 10/20/19 25 10/19/2024 CBC W/DIF F RBC 4.11 10'6/ uL (based on docume nted legal sex) 3.80-5 .20 Not Available [facility] (Lab) [address], [place], [address], 10/20/2024 15:03:15 10/20/19 25 10/19/2024 CBC W/DIF F HGB 12.7 g/dL (based on docume nted legal sex) 11.6-1 5.4 Not Available [facility] (Lab) [address], [place], [address], 10/20/2024 15:03:15 10/20/19 25 10/19/2024 CBC W/DIF F HCT 37.6 % (based on docume nted legal sex) 34.0-4 5.0 Not Available [facility] (Lab) [address] [place], [address], 10/20/2024 15:03:15 10/20/19 25 10/19/2024 CBC W/DIF F MCV 91.5 fL 80.0-9 9.0 Not Available [facility] (Lab) [address], [place], [address], 10/20/2024 15:03:15 10/20/19 25 10/19/2024 CBC W/DIF F MCH 30.9 pg 27.0-3 4.0 Not Available [facility] (Lab) [address], [place], [address], 10/20/2024 15:03:15 10/20/19 25 10/19/2024 CBC W/DIF F MCHC 33.8 g/dL 32.0-3 5.5 Not Available [facility] (Lab) [address] [facility], [place], [address], 10/20/2024 15:03:15 10/20/19 25 10/19/2024 CBC W/DIF F RDW 11.8 % 11.0-1 5.0 Not Available [facility] (Lab) [address] [facility], [place], [address], 10/20/2024 15:03:15 10/20/19 25 10/19/2024 CBC W/DIF F plt 260 10'3/ uL 150-40 0 Not Available [facility] (Lab) [address] [facility], [place], [address], 10/20/2024 15:03:15 10/20/19 25 10/19/2024 CBC W/DIF F MPV 11.4 fL 8.8-12 .1 Not Available [facility] (Lab) [address] [facility], [place], [address], 10/20/2024 15:03:15 10/20/19 25 10/19/2024 CBC W/DIF F NRBC's 0.0 % 0.0 Not Available [facility] (Lab) [address] [facility], [place], [address], 10/20/2024 15:03:15 10/20/19 25 10/19/2024 CBC W/DIF F absolute NRBCs 0.0 10'3/ uL no refere nce range establ ished Not Available [facility] (Lab) [address] [facility], [place], [address], 10/20/2024 15:03:15 10/20/19 25 10/19/2024 CBC W/DIF F neutrophils 67.3 % 34.0-7 3.0 Not Available [facility] (Lab) [address] [facility], [place], [address], 10/20/2024 15:03:15 10/20/19 25 10/19/2024 CBC W/DIF F lymphocytes 21.8 % 15.0-5 0.0 Not Available [facility] (Lab) [address] [facility], [place], [address], 10/20/2024 15:03:15 10/20/1910/19/2024 CBC W/DIF F monocytes 7.0 % 1.0-15 .0 Not Available [facility] (Lab) [address] [facility], [place], [address], 10/20/2024 15:03:15 10/20/1910/19/2024 CBC W/DIF F eosinophils 2.8 % 0.0-8. 0 Not Available [facility] (Lab) [address] [facility], [place], [address], 10/20/2024 15:03:15 10/20/1910/19/2024 CBC W/DIF F basophils 0.4 % 0.0-2. 0 Not Available [facility] (Lab) [address] [place], [address], 10/20/2024 15:03:15 10/20/1910/19/2024 CBC W/DIF F immature granulocytes 0.7 % no define d refere nce range Immat ure Granu locyt es (IG) repre sents autom ated enume ratio n of Metam yeloc ytes, Myelo cytes and Promy elocy abhay when IG is < 5%. Blast s are not inclu ded in IG and repor verna separ ately if prese nt. Not Available [facility] (Lab) [address] [facility], [place], [address], 10/20/2024 15:03:15 10/20/19 25 10/19/2024 CBC W/DIF F absolute neutrophils 5.0 10'3/ uL 1.5-8. 0 Not Available [facility] (Lab) [address] [facility], [place], [address], 10/20/2024 15:03:15 10/20/19 25 10/19/2024 CBC W/DIF F absolute lymphocytes 1.6 10'3/ uL 1.0-4. 0 Not Available [facility] (Lab) [address] [facility], [place], [address], 10/20/2024 15:03:15 10/20/19 25 10/19/2024 CBC W/DIF F absolute monocytes 0.5 10'3/ uL 0.2-1. 0 Not Available [facility] (Lab) [address] [facility], [place], [address], 10/20/2024 15:03:15 10/20/19 25 10/19/2024 CBC W/DIF F absolute eosinophils 0.2 10'3/ uL 0.0-0. 6 Not Available [facility] (Lab) [address] [facility], [place], [address], 10/20/2024 15:03:15 10/20/19 25 10/19/2024 CBC W/DIF F absolute basophils 0.0 10'3/ uL 0.0-0. 3 Not Available [facility] (Lab) [address] [place], [address], 10/20/2024 15:03:15 10/20/1910/19/2024 CBC W/DIF F absolute immature granulocytes 0.1 10'3/ uL 0.00-0 .10 Refer ence range s for nonbi nary/ inter sex or unspe cifie d gende r patie nts have not been estab lishe d. Pleas e [facility] for range s estab lishe d for cisge nder patie nts and evalu ate in the clini louisa josé xt of the indiv idual patie nt: https ://nikia matos book. nm.or g/gen derx Not Available [facility] (Lab) [address] [facility], [place], [address], 10/20/2024 15:03:15 10/20/1910/19/2024 HEPAT ITIS B SURFA CE ANTIG EN hepatitis B surface antigen Non-re active non-re active This assay was perfo rmed using [employer] ratio n reage nts and test kits. Value s obtai thai with other assay metho ds or kits canno t be used inter sky eably . Not Available [facility] (Lab) [address] [facility], [place], [address], 10/20/2024 15:03:15 10/20/1910/19/2024 HIV 1/2 ANTIG EN/AN TIBOD Y, REFLE X CONFI RMATI ON HIV antigen/anti body Nonrea ctive nonrea ctive HIV-1 antig en and HIV-1 /HIV- 2 antib odies were not detec verna. No labor atory evide nce of HIV infec tion. Not Available [facility] (Lab) [address] [facility], [place], [address], 10/20/2024 15:03:16 10/20/1910/19/2024 HEPAT ITIS C ANTIB CHAYA SCREE N, REFLE X TO CONFI RMATI ON hepatitis C antibody Non-re active non-re active Antib odies to HCV Not Detec verna, does not exclu de the possi bilit y of expos ure to HCV. Not Available [facility] (Lab) [address] [facility], [place], [address], 10/20/2024 15:03:17 10/20/1910/19/2024 RUBEL LA IGG ANTIB CHAYA, QUANT rubella antibodies, IgG Reacti ve reacti ve Not Available [facility] (Lab) [address] [facility], [place], [address], 10/20/2024 15:03:17 10/20/19 25 10/19/2024 RUBEL LA IGG ANTIB CHAYA, QUANT rubella antibodies, IgG quant 17.7 IU/mL >=10 Non-r eacti ve (Non- Immun e) <10 IU/mL React kurtis (Immu ne) > or = 10 IU/mL Not Available [facility] (Lab) [address] [facility], [place], [address], 10/20/2024 15:03:17 10/20/1910/19/2024 RPR SCREE N, REFLE X TITER /CONF IRMAT ION RPR qualitative Nonrea ctive nonrea ctive Not Available [facility] (Lab) [address] [facility], [place], [address], 10/20/2024 15:03:18 10/20/19 25 10/19/2024 HEMOG LOBIN [...] >8.0% Actio n sugge sted Not Available [facility] (Lab) [address] [facility], [place], [address], 10/20/2024 15:03:18 10/20/1910/19/2024 CULTU RE: URINE result report SEE RESULT S BELOW Test: Cultu re: Urine Speci men Sourc e: Urine Voide d Speci men Type: Urine Speci men Date: 2024 1335 Resul t Date: 2024 0540 Resul t Statu s: Final resul t Abnor mal: No Resul ting Lab: [facility] [address] [facility] [address] Tel: CULTU RE ----- ----- ----- --- No growt h in 1 day (dete ction level of 10,00 0 colon ies / ml.) Not Available [facility] (Lab) [address], [place], [address], 10/21/2024 06:45:38 10/20/19 25 10/19/2024 US, obste tric, nucha l trans lucen cy No observ ation record ed. [facility] [address], [place], [address], 10/19/2024 15:07:17 10/20/19 25 10/19/2024 US, obste tric, follo w-up No observ ation record ed. [email or web address] [address], [place], [address], 11/05/2024 09:32:39 11/17/19 25 11/16/2024 US, obste tric, limit ed No observ ation record ed. [email or web address] [facility] [address], [place], [address], 11/16/2024 15:57:26 11/17/19 25 11/16/2024 US, obste tric, trans vagin al No observ ation record ed. [email or web address] [facility] [address], [place], [address], 11/16/2024 15:57:36 11/17/19 25 11/16/2024 US, obste tric, limit ed No observ ation record ed. [email or web address] [address], [place], [address], 11/17/2024 14:50:26 11/20/19 25 11/18/2024 US, obste tric, follo w-up No observ ation record ed. [email or web address] [facility] [address], [place], [address], 12/24/2024 13:52:16 11/25/1911/24/2024 US, obste tric, follo w-up No observ ation record ed. [email or web address] [facility] [address] [facility], [place], [address], 11/24/2024 16:49:35 12/07/1912/06/2024 US, obste tric, 1st trime ster, singl e gesta tion No observ ation record ed. [email or web address] [facility] [address] [place] [address], [address], 12/08/2024 18:03:29 12/08/1912/06/2024 US, obste tric, 1st trime ster, singl e gesta tion No observ ation record ed. [email or web address] [facility] [address] [place] [address], [address], 12/14/2024 17:41:48 12/14/1912/13/2024 US, obste tric, follo w-up No observ ation record ed. [email or web address] [facility] [address] [place] [address], [address], 12/15/2024 13:00:03 01/04/2001/03/2025 US, obste tric, 1st trime ster, singl e gesta tion No observ ation record ed. [email or web address] [facility] [address] [place] [address], [address], 01/03/2025 17:23:45 01/04/2001/03/2025 US, obste tric, 1st trime ster, singl e gesta tion No observ ation record ed. [email or web address] [facility] [address], [address], 01/14/2025 14:15:31 01/15/20 25 01/14/2025 US, obste tric, follo w-up No observ ation record ed. [email or web address] [facility] [address] [place], [address], 01/18/2025 12:02:30 01/15/20 25 01/14/2025 US, obste tric, 1st trime ster, singl e gesta tion No observ ation record ed. [facility] [address] [place], [address], 01/18/2025 12:03:05 01/15/20 25 01/14/2025 US, obste tric, 1st trime ster, singl e gesta tion No observ ation record ed. [email or web address] [facility] [address] [place] [address], [address], 01/18/2025 12:05:42 02/08/20 25 02/07/2025 US, obste tric, follo w-up No observ ation record ed. [email or web address] Carlson [address] [place] [address] [address], [place], [address], 02/09/2025 13:34:32 02/08/20 25 02/07/2025 US, obste tric, follo w-up No observ ation record ed. [email or web address] [facility] [address], [place], [address], 02/07/2025 15:52:03 02/08/20 25 02/07/2025 US, obste tric, trans vagin al No observ ation record ed. [email or web address] [facility] [address], [place], [address], 02/07/2025 15:52:15 Result Notes None recorded. Problems Name Problem SNOMED Code Status Onset Date Resolution Date Notes Provider Name and Address Organization Details Recorded Time 53424793 Active [address] Nuñez [facility] 5 11:28:54 Multigrav sam of advanced maternal age 486525424 Active 2024 >40 testing @ 36wks Gretta peñaloza, [facility] 5 09:33:09 Cervical incompete nce 34289183 Active 2024 cerclage in 2nd viable delivered at 38 weeks. MFM referral faxed 11/16 scheduled 11/[address] [facility] for evaluatio n cerclaged placed 11/18 [facility] scheduled for follow up & us 11/24 & 12/22 & Consult & 01/03 0945 [facility] office [facility] 13:54:31 Uterine leiomyoma 88857713 Active 2024 Remy Alanis MD [address], [place], [address], [facility] 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 5 11:31:16 Problem Notes None recorded. Procedures Surgical History Date Name Laterality Status Provider Name and Address Organization Details Recorded Time 5 Date of Last Pap Smear completed Vivian Abner [facility] 10/19/2024 11:28:22 2 Nexplanon Removal completed Roxy Lozano MD [address], [place], [address], [facility] 08/06/2021 16:08:17 Imaging Results None [...] Address Organization Details Last Updated DateTime 11/16/2024 78298.47241 g 129/82 mm[Hg] Vivian Nuñez [facility] 11/16/2024 12:26:50 Social History Question Answer Notes LastModified by Organizat ion Details LastModified Time Tobacco Smoking Status Never Smoker Dolores peñaloza, [facility] 07/18/2021 14:18:06 In The 14 Days [...] ICD10 Code Diagnosis IMO Codes Diagnosis Note [id number] Remy Alanis MD [facility] [address],[place] [address] 10/19/2024 09:56:25 10/19/2024 10:59:33 screening 639895694 Z36.82 Z3A.11 [id number] Remy Alanis MD [facility] [address],[place] [address] 10/19/2024 09:57:38 10/19/2024 11:59:03 care status 052870215 Z34.82 [id number] Remy Alanis MD [facility] [address],[place] [address] 11/16/2024 11:11:02 11/16/2024 12:27:41 care: obstetric risk 332880469 O09.292 O09.522 Z3A.16 [id number] Remy Alanis MD [facility] [address],[place] [address] 11/16/2024 11:13:14 11/16/2024 12:58:02 care status 609320449 Z34.80 [id number] Health Concerns Section Related Observation LastModified by Organization Detai ls LastModified Time None Recorded Concern Status LastModified by Organization Details LastModified Time None Recorded Payers Encounter Date Sequence Insurance Name Policy Number Policy Pineda Covered Member ID Pineda Member ID Guarantor Name 11/16/2024 1 [facility] [id number] Jose Ernst [id number] Eleni Isael Notes Date Note Type Note Provider Name and Address Organization Details Recorded Time 11/16/2024 text/html Generic HPI TemplateReported by Patient Remy Alanis MD [address], [place], [address], [facility] 11/16/2024 12:53:57 OBGyn Episode Ob Episode Information Episode Created Date Number of Fetuses Patient Bloodtype Patient rh Status Prepregnancy Weight lbs Domestic Partner Domestic Partner Phone Father Name Research Computing Specialist Status 10/20/19 25 1 O Negative 210.99 OPEN Fetus Data First Name Last Name Admitted to NICU Weight (g) Sex Living Outcome Pediatric Complications Fetus ID Race Codes Race Delivery Type [id number] Problems Problem Notes per [facility] antibody e p ending titers 11/25 MFM called Anti E low unable to run titers Problem Name Start Date End Date Resolution Snomed Code Not e Multigravida of advanced maternal age 0710/19/2024 764547785 >40 testing @ 36wks Uterine leiomyoma 10/19/2024 08973609 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 12/16/2024 099034362 [facility] lab with antibody titer q4, would need MCA dopplers and MFM notified if titer reaches 16 or greater Cervical incompetence 10/19/2024 2437858 5 cerclage in 2nd viable delivered at 38 weeks. MFM referral faxed 11/16 scheduled 11/[address] [facility] for evaluation cerclaged placed 11/18 [facility] scheduled for follow up & us 11/24 & 12/22 US & Consult & 01/03 0945 [facility] office Ramana Calculation Initial Ramana Date Initial [...] Weight in lbs Pre/Post Dialysis Refused Weight 212.603198921212 BP Diastolic BP Location Tested BP Systolic [...] Type Weight in lbs Pre/Post Dialysis Refused 213.074412846753 BP Diastolic BP Location Tested BP Systolic [...] Weight in lbs Pre/Post Dialysis Refused Weight 219.976663525130 BP Diastolic BP Location Tested BP Systolic [...] Weight in lbs Pre/Post Dialysis Refused Weight 221.268321823072 BP Diastolic BP Location Tested BP Systolic [...] Type Weight in lbs Pre/Post Dialysis Refused 220.544728050467 BP Diastolic BP Location Tested BP Systolic BP Type 73 L arm 110 sitting Fetus Heart Rate Present A Present Fetus Movement A Yes Comments Patient report BH contractio ns yesterday, irregular today. No bleeding or leakage of fluid. EFW 84%, cerclage seen on US. Vertex. GCT and labs at [place] today, needs to return for Rhogam. Discussed [...]
--- OUTSIDE RECORDS SUMMARY | 2025-02-10 01:12 | XMS_ITS | Data Portability ---
Author Organization [facility] [place] Address [address] [place] [address] Assessment Encounter Date Assessment Date Assessment LastModified by Organization Details LastModified Time 12/16/2024 12/16/2024 Patient is ___weeks . Discussed plan. [email or web address] Not available 12/16/2024 10:39:44 01/10/2025 01/10/2025 Patient is ___weeks . Discussed plan. Not available 01/10/2025 14:08:02 Plan of Treatment Reminders Order Date Submit [...] Imaging US, obstetric , follow-up 2024 025 bharathi [place], [address], [place], [address], 02/07/2025 18:48:46 US, obstetric , transvagi nal 2024 025 bharathi [place], [address], [place], [address], 02/07/2025 18:48:46 US, obstetric , limited 2024 025 bharathi [place], [address], [place], [address], 11/17/2024 11:55:37 US, obstetric , transvagi nal 2024 025 [email or web address] [place], [address], [address], [place], [address], 11/17/2024 11:55:37 Medication Orders None recorded. Patient TargetsNo targets recorded. Patient InstructionsNo instructions recorded. Reason for Referral None Reported. Results Created Date Observation Date Name Description Value Unit Range Abnormal Flag Note LastModifiedBy Organization Detail LastModifiedTime 10/26/19 25 10/25/2024 [UNIT Y] ANEUP LOIDY NIPT fraction 3.7% normal Not Available [facility] [address], [place], [address], 10/25/2024 17:33:14 10/26/19 25 10/25/2024 [UNIT Y] ANEUP LOIDY NIPT 22Q11.2 microdeletio n LOW RISK <1 in 10,000 normal Not Available [facility] [address], [place], [address], 10/25/2024 17:33:14 10/26/19 25 10/25/2024 [UNIT Y] ANEUP LOIDY NIPT sex chromosome aneuploidy NOT DETECT ED normal Not Available [facility] [address], [place], [address], 10/25/2024 17:33:14 10/26/19 25 10/25/2024 [UNIT Y] ANEUP LOIDY NIPT monosomy X LOW RISK <1 in 10,000 normal Not Available [facility] [address], [place], [address], 10/25/2024 17:33:14 10/26/19 25 10/25/2024 [UNIT Y] ANEUP LOIDY NIPT trisomy 13 LOW RISK <1 in 10,000 normal Not Available [facility] [address], [place], [address], 10/25/2024 17:33:14 10/26/19 25 10/25/2024 [UNIT Y] ANEUP LOIDY NIPT trisomy 18 LOW RISK <1 in 10,000 normal Not Available [facility] [address], [place], [address], 10/25/2024 17:33:14 10/26/19 25 10/25/2024 [UNIT Y] ANEUP LOIDY NIPT trisomy 21 LOW RISK <1 in 10,000 normal Not Available [facility] [address], [place], [address], 10/25/2024 17:33:14 10/26/19 25 10/25/2024 [UNIT Y] ANEUP LOIDY NIPT sex MALE normal Not Available [facility] [address], [place], [address], 10/25/2024 17:33:14 10/26/19 25 10/25/2024 [UNIT Y] ANEUP LOIDY NIPT gestation SINGLE TON normal Not Available [facility] [address], [place], [address], 10/25/2024 17:33:14 10/26/19 25 10/25/2024 [UNIT Y] ANEUP LOIDY NIPT for detailed report, see pdf See PDF normal Not Available [facility] [address], [place], [address], 10/25/2024 17:33:14 10/27/19 25 10/26/2024 [UNIT Y] MADELYN Wilkins sickle cell disease/beta -thalassemia /hemoglobino pathies carrier screen NEGATI VE normal Not Available [facility] [address], [place], [address], 10/26/2024 02:27:18 10/27/19 25 10/26/2024 [UNIT Y] MADELYN ER SCREE N alpha-thalas semia carrier screen NEGATI VE normal Not Available [facility] [address], [place], [address], 10/26/2024 02:27:18 10/27/19 25 10/26/2024 [UNIT Y] MADELYN MIS Wilkins cystic fibrosis carrier screen NEGATI VE normal Not Available [facility] [address], [place], [address], 10/26/2024 02:27:18 10/27/19 25 10/26/2024 [UNIT Y] MADELYN Wilkins spinal muscular atrophy carrier screen NEGATI VE 2 SMN1 copies , SNP not presen t normal Not Available [facility] [address], [place], [address], 10/26/2024 02:27:18 10/27/19 25 10/26/2024 [UNIT Y] MADELYN Wilkins for detailed report, see pdf See PDF normal Not Available [facility] [address], [place], [address], 10/26/2024 02:27:18 10/20/19 25 10/19/2024 CBC W/DIF F WBC 7.5 10'3/ uL 3.5-10 .5 Not Available [facility] (Lab) [address], [place], [address], 10/20/2024 15:03:15 10/20/19 25 10/19/2024 CBC W/DIF F RBC 4.11 10'6/ uL (based on docume nted legal sex) 3.80-5 .20 Not Available [facility] (Lab) [address], [place], [address], 10/20/2024 15:03:15 10/20/19 25 10/19/2024 CBC W/DIF F HGB 12.7 g/dL (based on docume nted legal sex) 11.6-1 5.4 Not Available [facility] (Lab) [address], [place], [address], 10/20/2024 15:03:15 10/20/19 25 10/19/2024 CBC W/DIF F HCT 37.6 % (based on docume nted legal sex) 34.0-4 5.0 Not Available [facility] (Lab) [address] [facility], [place], [address], 10/20/2024 15:03:15 10/20/19 25 10/19/2024 CBC W/DIF F MCV 91.5 fL 80.0-9 9.0 Not Available [facility] (Lab) [address] [facility], [place], [address], 10/20/2024 15:03:15 10/20/19 25 10/19/2024 CBC W/DIF F MCH 30.9 pg 27.0-3 4.0 Not Available [facility] (Lab) [address] [facility], [place], [address], 10/20/2024 15:03:15 10/20/19 25 10/19/2024 CBC W/DIF F MCHC 33.8 g/dL 32.0-3 5.5 Not Available [facility] (Lab) [address] [facility], [place], [address], 10/20/2024 15:03:15 10/20/19 25 10/19/2024 CBC W/DIF F RDW 11.8 % 11.0-1 5.0 Not Available [facility] (Lab) [address] [facility], [place], [address], 10/20/2024 15:03:15 10/20/19 25 10/19/2024 CBC W/DIF F plt 260 10'3/ uL 150-40 0 Not Available [facility] (Lab) [address] [place], [address], 10/20/2024 15:03:15 10/20/19 25 10/19/2024 CBC W/DIF F MPV 11.4 fL 8.8-12 .1 Not Available [facility] (Lab) [address] [facility], [place], [address], 10/20/2024 15:03:15 10/20/19 25 10/19/2024 CBC W/DIF F NRBC's 0.0 % 0.0 Not Available [facility] (Lab) [address] [facility], [place], [address], 10/20/2024 15:03:15 10/20/19 25 10/19/2024 CBC W/DIF F absolute NRBCs 0.0 10'3/ uL no refere nce range establ ished Not Available [facility] (Lab) [address] [facility], [place], [address], 10/20/2024 15:03:15 10/20/19 25 10/19/2024 CBC W/DIF F neutrophils 67.3 % 34.0-7 3.0 Not Available [facility] (Lab) [address] [facility], [place], [address], 10/20/2024 15:03:15 10/20/19 25 10/19/2024 CBC W/DIF F lymphocytes 21.8 % 15.0-5 0.0 Not Available [facility] (Lab) [address] [facility], [place], [address], 10/20/2024 15:03:15 10/20/19 25 10/19/2024 CBC W/DIF F monocytes 7.0 % 1.0-15 .0 Not Available [facility] (Lab) [address] [facility], [place], [address], 10/20/2024 15:03:15 10/20/1910/19/2024 CBC W/DIF F eosinophils 2.8 % 0.0-8. 0 Not Available [facility] (Lab) [address] [facility], [place], [address], 10/20/2024 15:03:15 10/20/19 25 10/19/2024 CBC W/DIF F basophils 0.4 % 0.0-2. 0 Not Available [facility] (Lab) [address], [place], [address], 10/20/2024 15:03:15 10/20/19 25 10/19/2024 CBC W/DIF [...] separ ately if prese nt. Not Available [facility] (Lab) [address], [place], [address], 10/20/2024 15:03:15 10/20/19 25 10/19/2024 CBC W/DIF F absolute neutrophils 5.0 10'3/ uL 1.5-8. 0 Not Available [facility] (Lab) [address], [place], [address], 10/20/2024 15:03:15 10/20/19 25 10/19/2024 CBC W/DIF F absolute lymphocytes 1.6 10'3/ uL 1.0-4. 0 Not Available [facility] (Lab) [address], [place], [address], 10/20/2024 15:03:15 10/20/19 25 10/19/2024 CBC W/DIF F absolute monocytes 0.5 10'3/ uL 0.2-1. 0 Not Available [facility] (Lab) [address], [place], [address], 10/20/2024 15:03:15 10/20/19 25 10/19/2024 CBC W/DIF F absolute eosinophils 0.2 10'3/ uL 0.0-0. 6 Not Available [facility] (Lab) [address], [place], [address], 10/20/2024 15:03:15 10/20/19 25 10/19/2024 CBC W/DIF F absolute basophils 0.0 10'3/ uL 0.0-0. 3 Not Available [facility] (Lab) [address] , [place], [address], 10/20/2024 15:03:15 10/20/19 25 10/19/2024 CBC W/DIF F absolute immature granulocytes 0.1 10'3/ uL 0.00-0 .10 Refer ence range s for nonbi nary/ inter sex or unspe cifie d gende r patie nts have not been estab lishe d. Plekarson e refer to the follo wing table for range s estab lishe d for cisge nder patie nts and evalu ate in the clini louisa josé xt of the indiv idual patie nt: https ://la and book. nm.or g/gen derx Not Available [facility] (Lab) [address], [place], [address], 10/20/2024 15:03:15 10/20/19 25 10/19/2024 HEPAT ITIS B SURFA CE ANTIG EN hepatitis B surface antigen Non-re active non-re active This assay was perfo rmed using [employer] ratio n reage nts and test kits. Value s obtai thai with other assay metho ds or kits canno t be used inter sky eably . Not Available [facility] (Lab) [address], [place], [address], 10/20/2024 15:03:15 10/20/19 25 10/19/2024 HIV 1/2 ANTIG EN/AN TIBOD Y, REFLE X CONFI RMATI ON HIV antigen/anti body Nonrea ctive nonrea ctive HIV-1 antig en and HIV-1 /HIV- 2 antib odies were not detec verna. No labor atory evide nce of HIV infec tion. Not Available [facility] (Lab) [address], [place], [address], 10/20/2024 15:03:16 10/20/19 25 10/19/2024 HEPAT ITIS C ANTIB CHAYA SCREE N, REFLE X TO CONFI RMATI ON hepatitis C antibody Non-re active non-re active Antib odies to HCV Not Detec verna, does not exclu de the possi bilit y of expos ure to HCV. Not Available [facility] (Lab) [address] [facility], [place], [address], 10/20/2024 15:03:17 10/20/19 25 10/19/2024 RUBEL LA IGG ANTIB CHAYA, QUANT rubella antibodies, IgG Reacti ve reacti ve Not Available [facility] (Lab) [address] [facility], [place], [address], 10/20/2024 15:03:17 10/20/19 25 10/19/2024 RUBEL LA IGG ANTIB CHAYA, QUANT rubella antibodies, IgG quant 17.7 IU/mL >=10 Non-r eacti ve (Non- Immun e) <10 IU/mL React kurtis (Immu ne) > or = 10 IU/mL Not Available [facility] (Lab) [address] [facility], [place], [address], 10/20/2024 15:03:17 10/20/19 25 10/19/2024 RPR SCREE N, REFLE X TITER /CONF IRMAT ION RPR qualitative Nonrea ctive nonrea ctive Not Available [facility] (Lab) [address] [facility], [place], [address], 10/20/2024 15:03:18 10/20/19 25 10/19/2024 HEMOG LOBIN [...] >8.0% Actio n sugge sted Not Available [facility] (Lab) [address] [facility], [place], [address], 10/20/2024 15:03:18 10/20/19 25 10/19/2024 CULTU RE: URINE result report SEE RESULT S BELOW Test: Cultu re: Urine Speci men Sourc e: Urine Voide d Speci men Type: Urine Speci men Date: 2024 1335 Resul t Date: 2024 0540 Resul t Statu s: Final resul t Abnor mal: No Resul ting Lab: [facility] [address] [facility] [place] [address] Tel: CULTU RE ----- ----- ----- --- No growt h in 1 day (dete ction level of 10,00 0 colon ies / ml.) Not Available [facility] (Lab) [address] [facility], [place], [address], 10/21/2024 06:45:38 10/20/19 25 10/19/2024 US, obste tric, nucha l trans lucen cy No observ ation record ed. [facility] [address], [place], [address], 10/19/2024 15:07:17 10/20/19 25 10/19/2024 US, tonia tric, follo w-up No observ ation record ed. Robyn [address], [place], [address], 11/05/2024 09:32:39 11/17/19 25 11/16/2024 US, obstsindi tric, limit ed No observ ation record ed. [email or web address] [place] [address], [place], [address], 11/16/2024 15:57:26 11/17/19 25 11/16/2024 US, obste tric, trans vagin al No observ ation record ed. [email or web address] [place] [address], [place], [address], 11/16/2024 15:57:36 11/17/19 25 11/16/2024 US, obste tric, limit ed No observ ation record ed. naya Macdonalde [address], [place], [address], 11/17/2024 14:50:26 11/20/19 25 11/18/2024 US, obste tric, follo w-up No observ ation record ed. [email or web address] [facility] [address] [facility], [place], [address], 12/24/2024 13:52:16 11/25/19 25 11/24/2024 US, obste tric, follo w-up No observ ation record ed. [email or web address] [facility] [address] [facility], [place], [address], 11/24/2024 16:49:35 12/07/19 25 12/06/2024 US, obste tric, 1st trime ster, singl e gesta tion No observ ation record ed. [address] [facility] [address] [place], [address], 12/08/2024 18:03:29 12/08/19 25 12/06/2024 US, obste tric, 1st trime ster, singl e gesta tion No observ ation record ed. [email or web address] [address] [place] [address], [address], 12/14/2024 17:41:48 12/14/19 25 12/13/2024 US, obste tric, follo w-up No observ ation record ed. [email or web address] [facility] [address], [address], 12/15/2024 13:00:03 01/04/2001/03/2025 US, obste tric, 1st trime ster, singl e gesta tion No observ ation record ed. [email or web address] [facility] [address], [address], 01/03/2025 17:23:45 01/04/2001/03/2025 US, obste tric, 1st trime ster, singl e gesta tion No observ ation record ed. [email or web address] [facility] [address], [address], 01/14/2025 14:15:31 01/15/2001/14/2025 US, obste tric, follo w-up No observ ation record ed. [email or web address] [address] [facility] [address], [address], 01/18/2025 12:02:30 01/15/2001/14/2025 US, obste tric, 1st trime ster, singl e gesta tion No observ ation record ed. [email or web address] [address] [facility] [address], [address], 01/18/2025 12:03:05 01/15/2001/14/2025 US, obste tric, 1st trime ster, singl e gesta tion No observ ation record ed. [address] [facility] [address], [address], 01/18/2025 12:05:42 02/08/20 25 02/07/2025 US, obste tric, follo w-up No observ ation record ed. jhoana Carlson [address], [place], [address], 02/09/2025 13:34:32 02/08/20 25 02/07/2025 US, obste tric, follo w-up No observ ation record ed. [email or web address] [place] [address], [place], [address], 02/07/2025 15:52:03 02/08/20 25 02/07/2025 US, obste tric, trans vagin al No observ ation record ed. [email or web address] [place] [address], [place], [address], 02/07/2025 15:52:15 Result Notes None recorded. Problems Name Problem SNOMED Code Status Onset Date Resolution Date Notes Provider Name and Address Organization Details Recorded Time 76810531 Active 2024 Vivian peñaloza [facility] 5 11:28:54 Multigrav sam of advanced maternal age 080038409 Active 2024 >40 testing @ 36wks Gretta peñaloza [facility] 5 09:33:09 Cervical incompete nce 93822388 Active 2024 cerclage in 2nd viable delivered at 38 weeks. MFM referral faxed 11/16 scheduled 11/17 sent to [facility] [place] for evaluatio n cerclaged placed 11/18 [facility] [place] scheduled for follow up & us 11/24 & 12/22 & Consult & 01/03 0945 [facility] office Gretta peñaloza [facility] 5 13:54:31 Uterine leiomyoma 03791976 Active 2024 Remy Alanis MD [address], [place], [address], [facility] 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 5 11:31:16 Problem Notes None recorded. Procedures Surgical History Date Name Laterality Status Provider Name and Address Organization Details Recorded Time 5 Date of Last Pap Smear completed Vivian Nuñez [facility] 10/19/2024 11:28:22 2 Nexplanon Removal completed Roxy Lozano MD [address], [place], [address], [facility] 08/06/2021 16:08:17 Imaging Results None [...] Address Organization Details Last Updated DateTime 11/16/2024 09817.02219 g 129/82 mm[Hg] [facility] 11/16/2024 12:26:50 Date Recorded Body height Body mass index (BMI) Body weight Systolic And Diastolic Provider Name and Address Organization Details Last Updated DateTime 12/16/2024 170.18 cm 34.3 kg/m2 37996.73 g 113/78 mm[Hg] Roxy King [facility] 12/16/2024 10:40:26 Date Recorded Body height Body mass index (BMI) Body weight Systolic And Diastolic Provider Name and Address Organization Details Last Updated DateTime 01/10/2025 170.18 cm 34.6 kg/m2 845380.91 g 112/72 mm[Hg] Vivian [facility] 01/10/2025 14:09:47 Date Recorded Body weight Systolic And Diastolic Provider Name and Address Organization Details Last Updated DateTime 02/07/2025 04116.3214 g 110/73 mm[Hg] Dulce Valdez [facility] 02/07/2025 14:29:26 Social History Question Answer Notes LastModified by Organizat ion Details LastModified Time Tobacco Smoking Status [facility] 07/18/2021 14:18:06 In The 14 Days [...] ICD10 Code Diagnosis IMO Codes Diagnosis Note [id number] MD Kaylie Mackey [address],[place] [address] 07/18/2021 13:53:24 07/20/2021 17:19:59 Gynecologic examination 95813644 Z01.419 Surve[place] ce of subcutaneous contraceptive implant 169668502 Z30.46 Weight gain 7250593 R63. 5 Irregular periods 789210 07 N92.6 Amenorrhea 15758761 N91. 2 534397 Roxy Lozano MD [place] [address],[place] [address] 08/06/2021 15:19:36 08/06/2021 16:10:29 Removal of subcutaneous contraceptive 942714169 Z30.46 952864 Roxy Lozano MD [place] [address],[place] [address] 09/03/2021 14:51:00 09/03/2021 15:38:38 Sterilization requested 498911696 Z30.2 795257 Roxy Lozano MD [place] [address],[place] [address] 12/31/2021 10:19:27 12/31/2021 15:25:30 Preoperative state 03694551 Z78.9 Sterilizat ion requested 019308609 Z30.2 Dribbling of urine 98091 000 N39.43 078208 Remy Alanis MD [place] [address],[place] [address] 09/16/2024 10:16:50 09/16/2024 11:02:24 Finding of menstrual bleeding 589810416 Z36.87 Z3A.01 363132 577117 MD Kaylie Forrester [address] [place] [address] 09/21/2024 10:12:04 09/21/2024 11:03:55 [id number] MD Kaylie Forrester [address],[place] [address] 09/21/2024 10:12:28 09/21/2024 12:15:13 Amenorrhea 99925658 N91.2 40637 this patient is an 39-year-ol d female [...] . HISTORY OF CERVICAL INCOMPETEN CE, CERCLAGE 429649 MD Kaylie Forrester [address],[place] [address] 10/19/2024 09:56:25 10/19/2024 10:59:33 screening 408846555 Z36.82 Z3A.11 1009359455 946988 MD Kaylie Forrester [address],[place] [address] 10/19/2024 09:57:38 10/19/2024 11:59:03 care status 534170859 Z34.82 33218026 916436 MD Kaylie Forrester [address],[place] [address] 11/16/2024 11:11:02 11/16/2024 12:27:41 care: obstetric risk 534469333 O09.292 O09.522 Z3A.16 7785621 238530 MD Kaylie Forrester [address],[place] [address] 11/16/2024 11:13:14 11/16/2024 12:58:02 care status 983188641 Z34.80 4424783742 997524 MD Kaylie Forrester [address],[place] [address] 12/16/2024 10:16:43 12/16/2024 11:00:55 care status 516236168 Z34.82 11482634 282712 MD Kaylie Forrester [address],[place] [address] 01/10/2025 13:31:58 01/10/2025 14:42:34 care status 570489730 Z34.82 65998864 688839 Remy Alanis MD [facility] [address],[place] [address] 02/07/2025 13:34:39 02/07/2025 14:28:47 High risk 85331918 O09.213 O09.523 O99.213 O36.63X0 06730953 [id number] YAZMIN ISABEL MD [facility] [address],[place] [address] 02/07/2025 14:14:33 02/07/2025 14:48:51 Multigravida of advanced maternal age 647714786 O09.521 50182254 Cervical incompetence 17 671829 N88.3 07718 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 475340465 O36.0990 40286243 Gestation period, 28 weeks 46448383 Z3A.28 9042612 Health Concerns Section Related Observation LastModified by Organization Detai ls LastModified Time None Recorded Concern Status LastModified by Organization Details LastModified Time None Recorded Advance Directives Directive None Recorded Payers Insurance Date Sequence Insurance Name Policy Number Policy Pineda Covered Member ID Pineda Member ID Guarantor Name 02/06/2025 1 [facility] [id number] Jose Ernst [id number] Eleni Isael Notes Date Note Type Note Provider Name and Address Organization Details Recorded Time 11/16/2024 text/html Generic HPI TemplateReported by Patient Remy Alanis MD [address], [place], [address], [facility] 11/16/2024 12:53:57 12/16/2024 text/html Generic HPI TemplateReported by Patient Remy Alanis MD [address], [place], [address], [facility] 12/16/2024 10:58:30 01/10/2025 text/html Generic HPI TemplateReported by Patient Remy Alanis MD [address], [place], [address], [place] [facility] 01/10/2025 14:36:41 02/07/2025 text/html Generic HPI TemplateReported by Patient YAZMIN ISABEL MD [address], [place], [address], [facility] 02/07/2025 14:45:45 OBGyn Episode Ob Episode Information Episode Created Date Number of Fetuses Patient Bloodtype Patient rh Status Prepregnancy Weight lbs Domestic Partner Domestic Partner Phone Father Name Electric Engine Mechanic Status 07/19/19 22 1 CLOSED Fetus Data First Name Last Name Admitted to NICU Weight (g) Sex Living Outcome Pediatric Complications Fetus ID Race Codes Race Delivery Type F Prematur e 37297 Vaginal Delivery Ramana Calculation Initial Ramana Date [...] Domestic Partner Domestic Partner Phone Father Name Electric Engine Mechanic Status 07/19/19 22 1 CLOSED Fetus Data First Name Last Name Admitted to NICU Weight (g) Sex Living Outcome Pediatric Complications Fetus ID Race Codes Race Delivery Type 2834.95 M Prematur e 79400 Vaginal Delivery Ramana Calculation Initial Ramana Date [...] Domestic Partner Domestic Partner Phone Father Name Electric Engine Mechanic Status 10/20/19 25 1 O Negative 210.99 OPEN Fetus Data First Name Last Name Admitted to NICU Weight (g) Sex Living Outcome Pediatric Complications Fetus ID Race Codes Race Delivery Type 34304 Problems Problem Notes per [facility] antibody e pending titers 11/25 MFM called Anti E low unable to run titers Problem Name Start Date End Date Resolution Snomed Code Not e Multigravida of advanced maternal age 0710/19/2024 939671766 >40 testing @ 36wks Uterine leiomyoma 10/19/2024 40866087 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 MFM referral faxed 11/16 scheduled 11/17 sent to [facility] [place] for evaluation cerclaged placed 11/18 [facility] scheduled for follow up & us 11/24 & 12/22 US & Consult & 01/03 0945 [facility] office Ramana Calculation Initial Ramana Date Initial [...] Weight in lbs Pre/Post Dialysis Refused Weight [id number] BP Diastolic BP Location Tested BP Systolic [...] Type Weight in lbs Pre/Post Dialysis Refused 213.533987526459 BP Diastolic BP Location Tested BP Systolic BP Type 82 L arm 129 sitting Fetus Heart Rate Present A 144 Fetus Movement A Yes Comments to see M for history of ce rvical incompetence and cerclage. Currently has a dynamic cervix. It funnels down to 2.8 cm. Flowsheet Date 12/16/2024 [place] Score Blood Edema Fundus Height Fundus Units Glucose Ketones Leukocytes Nitrite Labor Signs Protein Cervic Dilation Cervic Effacement Cervic Station Type Weight in lbs Pre/Post Dialysis Refused Weight 219.685931215411 BP Diastolic BP Location Tested BP Systolic [...] Weight in lbs Pre/Post Dialysis Refused Weight 221.505114902959 BP Diastolic BP Location Tested BP Systolic [...] Type Weight in lbs Pre/Post Dialysis Refused 220.624821725053 BP Diastolic BP Location Tested BP Systolic BP Type 73 L arm 110 sitting Fetus Heart Rate Present A Present Fetus Movement A Yes Comments Patient report BH contractio ns yesterday, irregular today. No bleeding or leakage of fluid. EFW 84%, cerclage seen on US. Vertex. GCT and labs at [facility] today, needs to return for Rhogam. Discussed [...]
--- OUTSIDE RECORDS SUMMARY | 2025-02-10 01:12 | XMS_ITS | Continuity of Care Document ---
Author Organization [facility], [place] Address [address] [place] [address] Assessment Encounter Date Assessment Date Assessment LastModified by Organization Details LastModified Time 12/16/2024 12/16/2024 Patient is ___weeks . Discussed plan. Not available 12/16/2024 10:39:44 Plan of Treatment Reminders Order Date Submit [...] Not Available [facility] [address], [place], [address], 10/25/2024 17:33:14 10/26/1910/25/2024 [UNIT Y] ANEUP LOIDY NIPT 22Q11.2 microdeletio n LOW RISK <1 in 10,000 normal Not Available [facility] [address], [place], [address], 10/25/2024 17:33:14 10/26/192025 [UNIT Y] ANEUP LOIDY NIPT sex chromosome aneuploidy NOT DETECT ED normal Not Available [facility] [address], [place], [address], 10/25/2024 17:33:14 10/26/19 25 10/25/2024 [UNIT Y] ANEUP LOIDY NIPT monosomy X LOW RISK <1 in 10,000 normal Not Available [facility] [address], [place], [address], 10/25/2024 17:33:14 10/26/19 25 10/25/2024 [UNIT Y] ANEUP LOIDY NIPT trisomy 13 LOW RISK <1 in 10,000 normal Not Available [facility] [address], [place], [address], 10/25/2024 17:33:14 10/26/19 25 10/25/2024 [UNIT Y] ANEUP LOIDY NIPT trisomy 18 LOW RISK <1 in 10,000 normal Not Available [facility] [address], [place], [address], 10/25/2024 17:33:14 10/26/19 25 10/25/2024 [UNIT Y] ANEUP LOIDY NIPT trisomy 21 LOW RISK <1 in 10,000 normal Not Available [facility] [address], [place], [address], 10/25/2024 17:33:14 10/26/19 25 10/25/2024 [UNIT Y] ANEUP LOIDY NIPT sex MALE normal Not Available [facility] [address], [place], [address], 10/25/2024 17:33:14 10/26/19 25 10/25/2024 [UNIT Y] ANEUP LOIDY NIPT gestation SINGLE TON normal Not Available [facility] [address], [place], [address], 10/25/2024 17:33:14 10/26/19 25 10/25/2024 [UNIT Y] ANEUP MAKAYLA NIPT for detailed report, see pdf See PDF normal Not Available [facility] [address], [place], [address], 10/25/2024 17:33:14 10/27/19 25 10/26/2024 [UNIT Y] MADELYN Wilkins sickle cell disease/beta -thalassemia /hemoglobino pathies carrier screen NEGATI VE normal Not Available [facility] [address], [place], [address], 10/26/2024 02:27:18 10/27/19 25 10/26/2024 [UNIT Y] MADELYN Wilkins alpha-thalas semia carrier screen NEGATI VE normal Not Available [facility] [address], [place], [address], 10/26/2024 02:27:18 10/27/19 25 10/26/2024 [UNIT Y] MADELYN Wilkins cystic fibrosis carrier screen NEGATI VE normal Not Available [facility] [address], [place], [address], 10/26/2024 02:27:18 10/27/19 25 10/26/2024 [UNIT Y] MADELYN Wilkins spinal muscular atrophy carrier screen NEGATI VE 2 SMN1 copies , SNP not presen t normal Not Available [facility] [address], [place], [address], 10/26/2024 02:27:18 10/27/19 25 10/26/2024 [UNIT Y] MADELYN Wilkins for detailed report, see pdf See PDF normal Not Available [facility] [address], [place], [address], 10/26/2024 02:27:18 10/20/19 25 10/19/2024 CBC W/DIF F WBC 7.5 10'3/ uL 3.5-10 .5 Not Available [facility] (Lab) [address], [place], [address], 10/20/2024 15:03:15 10/20/19 25 10/19/2024 CBC W/DIF F RBC 4.11 10'6/ uL (based on docume nted legal sex) 3.80-5 .20 Not Available [facility] (Lab) [address], [place], [address], 10/20/2024 15:03:15 10/20/19 25 10/19/2024 CBC W/DIF F HGB 12.7 g/dL (based on docume nted legal sex) 11.6-1 5.4 Not Available [facility] (Lab) [address], [place], [address], 10/20/2024 15:03:15 10/20/19 25 10/19/2024 CBC W/DIF F HCT 37.6 % (based on docume nted legal sex) 34.0-4 5.0 Not Available [facility] (Lab) [address], [place], [address], 10/20/2024 15:03:15 10/20/1910/19/2024 CBC W/DIF F MCV 91.5 fL 80.0-9 9.0 Not Available [facility] (Lab) [address], [place], [address], 10/20/2024 15:03:15 10/20/1910/19/2024 CBC W/DIF F MCH 30.9 pg 27.0-3 4.0 Not Available [facility] (Lab) [address] [place], [address], 10/20/2024 15:03:15 10/20/19 25 10/19/2024 CBC W/DIF F MCHC 33.8 g/dL 32.0-3 5.5 Not Available [facility] (Lab) [address] [facility], [place], [address], 10/20/2024 15:03:15 10/20/1910/19/2024 CBC W/DIF F RDW 11.8 % 11.0-1 5.0 Not Available [facility] (Lab) [address] [facility], [place], [address], 10/20/2024 15:03:15 10/20/19 25 10/19/2024 CBC W/DIF F plt 260 10'3/ uL 150-40 0 Not Available [facility] (Lab) [address] [facility], [place], [address], 10/20/2024 15:03:15 10/20/19 25 10/19/2024 CBC W/DIF F MPV 11.4 fL 8.8-12 .1 Not Available [facility] (Lab) [address] [facility], [place], [address], 10/20/2024 15:03:15 10/20/19 25 10/19/2024 CBC W/DIF F NRBC's 0.0 % 0.0 Not Available [facility] (Lab) [address] [facility], [place], [address], 10/20/2024 15:03:15 10/20/19 25 10/19/2024 CBC W/DIF F absolute NRBCs 0.0 10'3/ uL no refere nce range establ ished Not Available [facility] (Lab) [address] [facility], [place], [address], 10/20/2024 15:03:15 10/20/1910/19/2024 CBC W/DIF F neutrophils 67.3 % 34.0-7 3.0 Not Available [facility] (Lab) [address] [facility], [place], [address], 10/20/2024 15:03:15 10/20/19 25 10/19/2024 CBC W/DIF F lymphocytes 21.8 % 15.0-5 0.0 Not Available [facility] (Lab) [address] [facility], [place], [address], 10/20/2024 15:03:15 10/20/19 25 10/19/2024 CBC W/DIF F monocytes 7.0 % 1.0-15 .0 Not Available [facility] (Lab) [address] [facility], [place], [address], 10/20/2024 15:03:15 10/20/19 25 10/19/2024 CBC W/DIF F eosinophils 2.8 % 0.0-8. 0 Not Available [facility] (Lab) [address] [facility], [place], [address], 10/20/2024 15:03:15 10/20/19 25 10/19/2024 CBC W/DIF F basophils 0.4 % 0.0-2. 0 Not Available [facility] (Lab) [address] [facility], [place], [address], 10/20/2024 15:03:15 10/20/19 25 10/19/2024 CBC W/DIF [...] separ ately if prese nt. Not Available [facility] (Lab) [address] [facility], [place], [address], 10/20/2024 15:03:15 10/20/1910/19/2024 CBC W/DIF F absolute neutrophils 5.0 10'3/ uL 1.5-8. 0 Not Available [facility] (Lab) [address] [facility], [place], [address], 10/20/2024 15:03:15 10/20/19 25 10/19/2024 CBC W/DIF F absolute lymphocytes 1.6 10'3/ uL 1.0-4. 0 Not Available [facility] (Lab) [address] [facility], [place], [address], 10/20/2024 15:03:15 10/20/19 25 10/19/2024 CBC W/DIF F absolute monocytes 0.5 10'3/ uL 0.2-1. 0 Not Available [facility] (Lab) [address] [facility], [place], [address], 10/20/2024 15:03:15 10/20/19 25 10/19/2024 CBC W/DIF F absolute eosinophils 0.2 10'3/ uL 0.0-0. 6 Not Available [facility] (Lab) [address] [facility], [place], [address], 10/20/2024 15:03:15 10/20/19 25 10/19/2024 CBC W/DIF F absolute basophils 0.0 10'3/ uL 0.0-0. 3 Not Available [facility] (Lab) [address] [facility], [place], [address], 10/20/2024 15:03:15 10/20/19 25 10/19/2024 CBC W/DIF [...] matos book. nm.or g/gen derx Not Available [facility] (Lab) [address] [facility], [place], [address], 10/20/2024 15:03:15 10/20/1910/19/2024 HEPAT ITIS B SURFA CE ANTIG EN hepatitis B surface antigen Non-re active non-re active This assay was perfo rmed using [employer] ratio n reage nts and test kits. Value s obtai thai with other assay metho ds or kits canno t be used inter sky eably . Not Available [facility] (Lab) [address] [place], [address], 10/20/2024 15:03:15 10/20/19 25 10/19/2024 HIV 1/2 ANTIG EN/AN TIBOD Y, REFLE X CONFI RMATI ON HIV antigen/anti body Nonrea ctive nonrea ctive HIV-1 antig en and HIV-1 /HIV- 2 antib odies were not detec verna. No labor atory evide nce of HIV infec tion. Not Available [facility] (Lab) [address] [facility], [place], [address], 10/20/2024 15:03:16 10/20/19 25 10/19/2024 HEPAT ITIS C ANTIB CHAYA SCREE N, REFLE X TO CONFI RMATI ON hepatitis C antibody Non-re active non-re active Antib odies to HCV Not Detec verna, does not exclu de the possi bilit y of expos ure to HCV. Not Available [facility] (Lab) [address] [facility], [place], [address], 10/20/2024 15:03:17 10/20/19 25 10/19/2024 RUBEL LA IGG ANTIB CHAYA, QUANT rubella antibodies, IgG Reacti ve reacti ve Not Available [facility] (Lab) [address] [place], [address], 10/20/2024 15:03:17 10/20/19 25 10/19/2024 RUBEL LA IGG ANTIB CHAYA, QUANT rubella antibodies, IgG quant 17.7 IU/mL >=10 Non-r eacti ve (Non- Immun e) <10 IU/mL React kurtis (Immu ne) > or = 10 IU/mL Not Available [facility] (Lab) [address] [place], [address], 10/20/2024 15:03:17 10/20/19 25 10/19/2024 RPR SCREE N, REFLE X TITER /CONF IRMAT ION RPR qualitative Nonrea ctive nonrea ctive Not Available [facility] (Lab) [address] , [place], [address], 10/20/2024 15:03:18 10/20/19 25 10/19/2024 HEMOG LOBIN [...] >8.0% Actio n sugge sted Not Available [facility] (Lab) [address] [facility], [place], [address], 10/20/2024 15:03:18 10/20/1910/19/2024 CULTU RE: URINE result report SEE RESULT S BELOW Test: Cultu re: Urine Speci men Sourc e: Urine Voide d Speci men Type: Urine Speci men Date: 2024 1335 Resul t Date: 2024 0540 Resul t Statu s: Final resul t Abnor mal: No Resul ting Lab: [facility] [address] [facility] [address] Tel: [phone] CULTU RE ----- ----- ----- --- No growt h in 1 day (dete ction level of 10,00 0 colon ies / ml.) Not Available [facility] (Lab) [address] , [place], [address], 10/21/2024 06:45:38 07/29/20 25 10/19/2024 US, obste tric, nucha l trans lucen cy No observ ation record ed. [email or web address] [place] [address], [place], [address], 10/19/2024 15:07:17 10/20/19 25 10/19/2024 US, obste tric, follo w-up No observ ation record ed. [email or web address] [facility] [address], [place], [address], 11/05/2024 09:32:39 11/17/19 25 11/16/2024 US, obste tric, limit ed No observ ation record ed. [email or web address] [place] [address], [place], [address], 11/16/2024 15:57:26 11/17/19 25 11/16/2024 US, obste tric, trans vagin al No observ ation record ed. [email or web address] [place] [address], [place], [address], 11/16/2024 15:57:36 11/17/19 25 11/16/2024 US, obste tric, limit ed No observ ation record ed. [email or web address] [facility] [address], [place], [address], 11/17/2024 14:50:26 11/20/19 25 11/18/2024 US, obste tric, follo w-up No observ ation record ed. [email or web address] [facility] [address], [place], [address], 12/24/2024 13:52:16 11/25/19 25 11/24/2024 US, obste tric, follo w-up No observ ation record ed. [email or web address] [facility] [address], [place], [address], 11/24/2024 16:49:35 12/07/1912/06/2024 US, obste tric, 1st trime ster, singl e gesta tion No observ ation record ed. [email or web address] [facility] [address], [address], 12/08/2024 18:03:29 12/08/19 25 12/06/2024 US, obste tric, 1st trime ster, singl e gesta tion No observ ation record ed. [address] [facility] [address], [address], 12/14/2024 17:41:48 12/14/1912/13/2024 US, obste tric, follo w-up No observ ation record ed. [address] [facility] [address], [address], 12/15/2024 13:00:03 01/04/2001/03/2025 US, obste tric, 1st trime ster, singl e gesta tion No observ ation record ed. [address] [facility] [address], [address], 01/03/2025 17:23:45 01/04/2001/03/2025 US, obste tric, 1st trime ster, singl e gesta tion No observ ation record ed. [address] [facility] [address], [address], 01/14/2025 14:15:31 01/15/20 25 01/14/2025 US, obste tric, follo w-up No observ ation record ed. [email or web address] [facility] [address], [address], 01/18/2025 12:02:30 01/15/20 25 01/14/2025 US, obste tric, 1st trime ster, singl e gesta tion No observ ation record ed. [email or web address] [facility] [address] [place], [address], 01/18/2025 12:03:05 01/15/20 25 01/14/2025 US, obste tric, 1st trime ster, singl e gesta tion No observ ation record ed. [email or web address] [facility] [address] [place], [address], 01/18/2025 12:05:42 02/08/20 25 02/07/2025 US, obste tric, follo w-up No observ ation record ed. [email or web address] Carlson [address], [place], [address], 02/09/2025 13:34:32 02/08/20 25 02/07/2025 US, obste tric, follo w-up No observ ation record ed. [email or web address] [place] [address], [place], [address], 02/07/2025 15:52:03 02/08/20 25 02/07/2025 US, obste tric, trans vagin al No observ ation record ed. [email or web address] [place] [address], [place], [address], 02/07/2025 15:52:15 Result Notes None recorded. Problems Name Problem SNOMED Code Status Onset Date Resolution Date Notes Provider Name and Address Organization Details Recorded Time 42740070 Active 2024 Vivian peñaloza [facility] 5 11:28:54 Multigrav sam of advanced maternal age 787828619 Active 2024 >40 testing @ 36wks Gretta peñaloza [facility] 5 09:33:09 Cervical incompete nce 09117509 Active 2024 cerclage in 2nd viable delivered at 38 weeks. MFM referral faxed 11/16 scheduled 11/17 sent to [facility] for evaluatio n cerclaged placed 11/18 [facility] scheduled for follow up & us 11/24 & 12/22 US & Consult & 01/03 0945 [facility] office Gretta Mejia [facility], [facility] 5 13:54:31 Uterine leiomyoma 07349879 Active 2024 Remy Alanis MD [address], [place], [address], [facility] 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 5 11:31:16 Problem Notes None recorded. Procedures Surgical History Date Name Laterality Status Provider Name and Address Organization Details Recorded Time 5 Date of Last Pap Smear completed Vivian Nuñez [facility] 10/19/2024 11:28:22 2 Nexplanon Removal completed Roxy Lozano MD [address], [place], [address], [facility] 08/06/2021 16:08:17 Imaging Results None recorded. [...] Updated DateTime 12/16/2024 170.18 cm 34.3 kg/m2 23730.73 g 113/78 mm[Hg] Roxy King [facility] 12/16/2024 10:40:26 Social History Question Answer Notes LastModified by Organizat ion Details LastModified Time Tobacco Smoking Status Never Smoker Doloresbryant Martinezisabel peñaloza, [facility] 07/18/2021 14:18:06 In The 14 Days [...] (Food, seasonal, environmental ) N Other N Blood Transfusion N Drug/Latex Allergies/Reactions N Breast Cancer N Dermatologic Disorders N [...] ICD10 Code Diagnosis IMO Codes Diagnosis Note [id number] Remy Alanis MD [place] [address] [address] 11/16/2024 11:11:02 11/16/2024 12:27:41 care: obstetric risk 862219119 O09.292 O09.522 Z3A.16 [id number] Remy Alanis MD [place] [address] [address] 11/16/2024 11:13:14 11/16/2024 12:58:02 care status [id number] Z34.80 [id number] Remy Alanis MD [place] [address] [address] 12/16/2024 10:16:43 12/16/2024 11:00:55 care status 483062598 Z34.82 [id number] Health Concerns Section Related Observation LastModified by Organization Detai ls LastModified Time None Recorded Concern Status LastModified by Organization Details LastModified Time None Recorded Payers Encounter Date Sequence Insurance Name Policy Number Policy Pineda Covered Member ID Pineda Member ID Guarantor Name 12/16/2024 1 [facility] [id number] Jose Ernst [id number] Eleni Isael Notes Date Note Type Note Provider Name and Address Organization Details Recorded Time 12/16/2024 text/html Generic HPI TemplateReported by Patient Remy Alanis MD [address], [place], [address], [facility] 12/16/2024 10:58:30 OBGyn Episode Ob Episode Information Episode Created Date Number of Fetuses Patient Bloodtype Patient rh Status Prepregnancy Weight lbs Domestic Partner Domestic Partner Phone Father Name Cellar Hand Status 10/20/19 25 1 O Negative 210.99 OPEN Fetus Data First Name Last Name Admitted to NICU Weight (g) Sex Living Outcome Pediatric Complications Fetus ID Race Codes Race Delivery Type [id number] Problems Problem Notes per [facility] antibody e p ending titers 11/25 MFM called Anti E low unable to run titers Problem Name Start Date End Date Resolution Snomed Code Not e Multigravida of advanced maternal age 0710/19/2024 016817495 >40 testing @ 36wks Uterine leiomyoma 10/19/2024 17183560 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 12/16/2024 577826361 T&S lab with antibody titer q4, would need MCA dopplers and MFM notified if titer reaches 16 or greater Cervical incompetence 10/19/2024 8675833 5 cerclage in 2nd viable delivered at 38 weeks. MFM referral faxed 11/16 scheduled 11/17 sent to [facility] for evaluation cerclaged placed 11/18 [facility] scheduled for follow up & us 11/24 & 12/22 US & Consult & 01/03 0945 [facility] office Ramana Calculation Initial Ramana Date [...] Weight in lbs Pre/Post Dialysis Refused Weight 212.145605149869 BP Diastolic BP Location Tested BP Systolic [...] Type Weight in lbs Pre/Post Dialysis Refused 213.397156350731 BP Diastolic BP Location Tested BP Systolic [...] Weight in lbs Pre/Post Dialysis Refused Weight 219.845137163998 BP Diastolic BP Location Tested BP Systolic [...] Weight in lbs Pre/Post Dialysis Refused Weight 221.954155402251 BP Diastolic BP Location Tested BP Systolic [...] Type Weight in lbs Pre/Post Dialysis Refused 220.201058742742 BP Diastolic BP Location Tested BP Systolic BP Type 73 L arm 110 sitting Fetus Heart Rate Present A Present Fetus Movement A Yes Comments Patient report BH contractio ns yesterday, irregular today. No bleeding or leakage of fluid. EFW 84%, cerclage seen on US. Vertex. GCT and labs at [facility] today, needs to return for Rhogam. Discussed [...]
--- OUTSIDE RECORDS SUMMARY | 2025-02-10 01:12 | XMS_ITS | Clinical Summary ---
Author Organization [facility] [address] Address [address] [place] [address] Care Team Providers Care Conference Services Coordinator Name Role Phone Denton Quiroz MD Primary Care Provider [phone] Allergies No known active allergies Medications No [...] Will make a referral to see a gas meter repairer for colonoscopy. Patient was informed that she may have recurrent diverticulitis in the future. Routine general medical exam ination at a [facility] facility 07/22/2023 Assessment & Plan (07/22/2023 9:39 AM CDT): Patient uses seatbelt. Encouraged exercise. Blood work was ordered. Mammogram was ordered. She is followed by yeast distiller for Pap smear. She does not smoke. 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 Gender Identity Not on file Sexual Orientation [...] 2-dose series) 01/30/1996 Hepatitis B Screening 2001 HPV Vaccines (1 - 3-dose SCD M series) 2010 Depression Screening 07/21/2024 07/22/2023 Regular Well Visit/Exam 18-64 07/21/2024 07/22/2023 Influenza Vaccine (#1) 2024 Pneumococcal vaccine <65 Aged Out No longer eligible based on patient's age to complete this topic Insurance Dr [address]ui [address] [place], [place] [id number] [place] [address] Care Teams Conference Services Coordinator Relationship Specialty Start Date End Date Denton Quiroz MD [address] [place] [address] PCP - General Internal Medicine 07/22/23
--- OUTSIDE RECORDS SUMMARY | 2025-02-10 01:12 | XMS_ITS | Continuity of Care Document ---
Author Organization [facility], [place] Address [address] [place] [address] Assessment Encounter Date Assessment Date Assessment LastModified by Organization Details LastModified Time 01/10/2025 01/10/2025 Patient is ___weeks . Discussed [...] Not Available [facility] [address], [place], [address], 10/25/2024 17:33:14 10/26/19 25 10/25/2024 [UNIT Y] ANEUP LOIDY NIPT 22Q11.2 microdeletio n LOW RISK <1 in 10,000 normal Not Available [facility] [address], [place], [address], 10/25/2024 17:33:14 10/26/19 25 10/25/2024 [UNIT Y] ANEUP LOIDY NIPT sex chromosome aneuploidy NOT DETECT ED normal Not Available [facility] [address], [place], [address], 10/25/2024 17:33:14 10/26/19 25 10/25/2024 [UNIT Y] ANEUP LOIDY NIPT monosomy X LOW RISK <1 in 10,000 normal Not Available [facility] [address], [place], [address], 10/25/2024 17:33:14 10/26/19 25 10/25/2024 [UNIT Y] ANEUP LOIDY NIPT trisomy 13 LOW RISK <1 in 10,000 normal Not Available [facility] [address], [place], [address], 10/25/2024 17:33:14 10/26/19 25 10/25/2024 [UNIT Y] ANEUP LOIDY NIPT trisomy 18 LOW RISK <1 in 10,000 normal Not Available [facility] [address], [place], [address], 10/25/2024 17:33:14 10/26/19 25 10/25/2024 [UNIT Y] ANEUP LOIDY NIPT trisomy 21 LOW RISK <1 in 10,000 normal Not Available [facility] [address], [place], [address], 10/25/2024 17:33:14 10/26/19 25 10/25/2024 [UNIT Y] ANEUP LOIDY NIPT sex MALE normal Not Available [facility] [address], [place], [address], 10/25/2024 17:33:14 10/26/19 25 10/25/2024 [UNIT Y] ANEUP LOIDY NIPT gestation SINGLE TON normal Not Available [facility] [address], [place], [address], 10/25/2024 17:33:14 10/26/19 25 10/25/2024 [UNIT Y] ANEUP MAKAYLA NIPT for detailed report, see pdf See PDF normal Not Available [facility] [address], [place], [address], 10/25/2024 17:33:14 10/27/19 25 10/26/2024 [UNIT Y] MADELYN Wilkins sickle cell disease/beta -thalassemia /hemoglobino pathies carrier screen NEGATI VE normal Not Available [facility] [address], [place], [address], 10/26/2024 02:27:18 10/27/19 25 10/26/2024 [UNIT Y] MADELYN Wilkins alpha-thalas semia carrier screen NEGATI VE normal Not Available [facility] [address], [place], [address], 10/26/2024 02:27:18 10/27/19 25 10/26/2024 [UNIT Y] MADELYN Wilkins cystic fibrosis carrier screen NEGATI VE normal Not Available [facility] [address], [place], [address], 10/26/2024 02:27:18 10/27/19 25 10/26/2024 [UNIT Y] MADELYN Wilkins spinal muscular atrophy carrier screen NEGATI VE 2 SMN1 copies , SNP not presen t normal Not Available [facility] [address], [place], [address], 10/26/2024 02:27:18 10/27/19 25 10/26/2024 [UNIT Y] MADELYN Wilkins for detailed report, see pdf See PDF normal Not Available [facility] [address], [place], [address], 10/26/2024 02:27:18 10/20/19 25 10/19/2024 CBC W/DIF F WBC 7.5 10'3/ uL 3.5-[address] [facility] (Lab) [address], [place], [address], 10/20/2024 15:03:15 10/20/19 25 10/19/2024 CBC W/DIF F RBC 4.11 10'6/ uL (based on docume nted legal sex) 3.80-[address] [facility] (Lab) [address], [place], [address], 10/20/2024 15:03:15 10/20/19 25 10/19/2024 CBC W/DIF F HGB 12.7 g/dL (based on docume nted legal sex) 11.6-[address] [facility] (Lab) [address], [place], [address], 10/20/2024 15:03:15 10/20/19 25 10/19/2024 CBC W/DIF F HCT 37.6 % (based on docume nted legal sex) 34.0-[address] [facility] (Lab) [address], [place], [address], 10/20/2024 15:03:15 10/20/1910/19/2024 CBC W/DIF F MCV 91.5 fL 80.0-[address] [facility] (Lab) [address], [place], [address], 10/20/2024 15:03:15 10/20/1910/19/2024 CBC W/DIF F MCH 30.9 pg 27.0-[address] [facility] (Lab) [address] [place], [address], 10/20/2024 15:03:15 10/20/19 25 10/19/2024 CBC W/DIF F MCHC 33.8 g/dL 32.0-[address] [facility] (Lab) [address] [facility], [place], [address], 10/20/2024 15:03:15 10/20/1910/19/2024 CBC W/DIF F RDW 11.8 % 11.0-[address] [facility] (Lab) [address] [facility], [place], [address], 10/20/2024 15:03:15 10/20/19 25 10/19/2024 CBC W/DIF F plt 260 10'3/ uL 150-[address] [facility] (Lab) [address] [facility], [place], [address], 10/20/2024 15:03:15 10/20/19 25 10/19/2024 CBC W/DIF F MPV 11.4 fL 8.8-[address] [facility] (Lab) [address] [facility], [place], [address], 10/20/2024 15:03:15 10/20/19 25 10/19/2024 CBC W/DIF F NRBC's 0.0 % 0.[address] [facility] (Lab) [address] [facility], [place], [address], 10/20/2024 15:03:15 10/20/19 25 10/19/2024 CBC W/DIF F absolute NRBCs 0.0 10'3/ uL no refere nce range establ ished Not Available [facility] (Lab) [address] [facility], [place], [address], 10/20/2024 15:03:15 10/20/1910/19/2024 CBC W/DIF F neutrophils 67.3 % 34.0-[address] [facility] (Lab) [address] [facility], [place], [address], 10/20/2024 15:03:15 10/20/19 25 10/19/2024 CBC W/DIF F lymphocytes 21.8 % 15.0-[address] [facility] (Lab) [address] [facility], [place], [address], 10/20/2024 15:03:15 10/20/19 25 10/19/2024 CBC W/DIF F monocytes 7.0 % 1.0-[address] [facility] (Lab) [address] [facility], [place], [address], 10/20/2024 15:03:15 10/20/19 25 10/19/2024 CBC W/DIF F eosinophils 2.8 % 0.0-8. [address] [facility] (Lab) [address] [facility], [place], [address], 10/20/2024 15:03:15 10/20/19 25 10/19/2024 CBC W/DIF F basophils 0.4 % 0.0-2. [address] [facility] (Lab) [address] [facility], [place], [address], 10/20/2024 15:03:15 10/20/19 25 10/19/2024 CBC W/DIF [...] ately if prese nt. Not Available [facility] (Lab) [address] [facility], [place], [address], 10/20/2024 15:03:15 10/20/1910/19/2024 CBC W/DIF F absolute neutrophils 5.0 10'3/ uL 1.5-8. [address] [facility] (Lab) [address] [facility], [place], [address], 10/20/2024 15:03:15 10/20/19 25 10/19/2024 CBC W/DIF F absolute lymphocytes 1.6 10'3/ uL 1.0-4. [address] [facility] (Lab) [address] [facility], [place], [address], 10/20/2024 15:03:15 10/20/19 25 10/19/2024 CBC W/DIF F absolute monocytes 0.5 10'3/ uL 0.2-1. [address] [facility] (Lab) [address] [facility], [place], [address], 10/20/2024 15:03:15 10/20/19 25 10/19/2024 CBC W/DIF F absolute eosinophils 0.2 10'3/ uL 0.0-0. [address] [facility] (Lab) [address] [facility], [place], [address], 10/20/2024 15:03:15 10/20/19 25 10/19/2024 CBC W/DIF F absolute basophils 0.0 10'3/ uL 0.0-0. [address] [facility] (Lab) [address] [facility], [place], [address], 10/20/2024 15:03:15 10/20/19 25 10/19/2024 CBC W/DIF [...] book. nm.or g/gen derx Not Available [facility] (Lab) [address] [facility], [place], [address], 10/20/2024 15:03:15 10/20/1910/19/2024 HEPAT ITIS B SURFA CE ANTIG EN hepatitis B surface antigen Non-re active non-re active This assay was perfo rmed using [employer] ratio n reage nts and test kits. Value s obtai thai with other assay metho ds or kits canno t be used inter sky eably . Not Available [facility] (Lab) [address] [place], [address], 10/20/2024 15:03:15 10/20/19 25 10/19/2024 HIV 1/2 ANTIG EN/AN TIBOD Y, REFLE X CONFI RMATI ON HIV antigen/anti body Nonrea ctive nonrea ctive HIV-1 antig en and HIV-1 /HIV- 2 antib odies were not detec verna. No labor atory evide nce of HIV infec tion. Not Available [facility] (Lab) [address] [facility], [place], [address], 10/20/2024 15:03:16 10/20/19 25 10/19/2024 HEPAT ITIS C ANTIB CHAYA SCREE N, REFLE X TO CONFI RMATI ON hepatitis C antibody Non-re active non-re active Antib odies to HCV Not Detec verna, does not exclu de the possi bilit y of expos ure to HCV. Not Available [facility] (Lab) [address] [facility], [place], [address], 10/20/2024 15:03:17 10/20/19 25 10/19/2024 RUBEL LA IGG ANTIB CHAYA, QUANT rubella antibodies, IgG Reacti ve reacti ve Not Available [facility] (Lab) [address] [place], [address], 10/20/2024 15:03:17 10/20/19 25 10/19/2024 RUBEL LA IGG ANTIB CHAYA, QUANT rubella antibodies, IgG quant 17.7 IU/mL >=10 Non-r eacti ve (Non- Immun e) <10 IU/mL React kurtis (Immu ne) > or = 10 IU/mL Not Available [facility] (Lab) [address] [place], [address], 10/20/2024 15:03:17 10/20/19 25 10/19/2024 RPR SCREE N, REFLE X TITER /CONF IRMAT ION RPR qualitative Nonrea ctive nonrea ctive Not Available [facility] (Lab) [address] , [place], [address], 10/20/2024 15:03:18 10/20/19 25 10/19/2024 HEMOG LOBIN [...] Actio n sugge sted Not Available [facility] (Lab) [address] [facility], [place], [address], 10/20/2024 15:03:18 10/20/1910/19/2024 CULTU RE: URINE result report SEE RESULT S BELOW Test: Cultu re: Urine Speci men Sourc e: Urine Voide d Speci men Type: Urine Speci men Date: 2024 1335 Resul t Date: 2024 0540 Resul t Statu s: Final resul t Abnor mal: No Resul ting Lab: [facility] [address] [facility] [address] Tel: [phone] CULTU RE ----- ----- ----- --- No growt h in 1 day (dete ction level of 10,00 0 colon ies / ml.) Not Available [facility] (Lab) [address] , [place], [address], 10/21/2024 06:45:38 07/29/20 25 10/19/2024 US, obste tric, nucha l trans lucen cy No observ ation record ed. [email or web address] [place] [address], [place], [address], 10/19/2024 15:07:17 10/20/19 25 10/19/2024 US, obste tric, follo w-up No observ ation record ed. [email or web address] [address], [place], [address], 11/05/2024 09:32:39 11/17/19 25 11/16/2024 US, obste tric, limit ed No observ ation record ed. [email or web address] [place] [address], [place], [address], 11/16/2024 15:57:26 11/17/19 25 11/16/2024 US, obste tric, trans vagin al No observ ation record ed. [email or web address] [place] [address], [place], [address], 11/16/2024 15:57:36 11/17/19 25 11/16/2024 US, obste tric, limit ed No observ ation record ed. [email or web address] [address], [place], [address], 11/17/2024 14:50:26 11/20/19 25 11/18/2024 US, obste tric, follo w-up No observ ation record ed. [email or web address] [facility] [address], [place], [address], 12/24/2024 13:52:16 11/25/19 25 11/24/2024 US, obste tric, follo w-up No observ ation record ed. [email or web address] [facility] [address], [place], [address], 11/24/2024 16:49:35 12/07/1912/06/2024 US, obste tric, 1st trime ster, singl e gesta tion No observ ation record ed. [email or web address] [facility] [address], [address], 12/08/2024 18:03:29 12/08/19 25 12/06/2024 US, obste tric, 1st trime ster, singl e gesta tion No observ ation record ed. [address] [facility] [address], [address], 12/14/2024 17:41:48 12/14/1912/13/2024 US, obste tric, follo w-up No observ ation record ed. [address] [facility] [address], [address], 12/15/2024 13:00:03 01/04/2001/03/2025 US, obste tric, 1st trime ster, singl e gesta tion No observ ation record ed. [address] [facility] [address], [address], 01/03/2025 17:23:45 01/04/2001/03/2025 US, obste tric, 1st trime ster, singl e gesta tion No observ ation record ed. [address] [facility] [address], [address], 01/14/2025 14:15:31 01/15/20 25 01/14/2025 US, obste tric, follo w-up No observ ation record ed. [email or web address] [address] [facility] [address], [address], 01/18/2025 12:02:30 01/15/20 25 01/14/2025 US, obste tric, 1st trime ster, singl e gesta tion No observ ation record ed. [email or web address] [facility] [address] [place], [address], 01/18/2025 12:03:05 01/15/20 25 01/14/2025 US, obste tric, 1st trime ster, singl e gesta tion No observ ation record ed. [email or web address] [facility] [address] [place], [address], 01/18/2025 12:05:42 02/08/20 25 02/07/2025 US, obste tric, follo w-up No observ ation record ed. [email or web address] Carlson [address], [place], [address], 02/09/2025 13:34:32 02/08/20 25 02/07/2025 US, obste tric, follo w-up No observ ation record ed. [email or web address] [place] [address], [place], [address], 02/07/2025 15:52:03 02/08/20 25 02/07/2025 US, obste tric, trans vagin al No observ ation record ed. [email or web address] [place] [address], [place], [address], 02/07/2025 15:52:15 Result Notes None recorded. Problems Name Problem SNOMED Code Status Onset Date Resolution Date Notes Provider Name and Address Organization Details Recorded Time 17571464 Active 2024 Vivian peñaloza [facility] 5 11:28:54 Multigrav sam of advanced maternal age 750215411 Active 2024 >40 testing @ 36wks Gretta peñaloza [facility] 5 09:33:09 Cervical incompete nce 16313033 Active 2024 cerclage in 2nd viable delivered at 38 weeks. MFM referral faxed 11/16 scheduled 11/17 sent to [facility] for evaluatio n cerclaged placed 11/18 [facility] scheduled for follow up & us 11/24 & 12/22 US & Consult & 01/03 0945 [facility] office Gretta Mejia [facility], [facility] 5 13:54:31 Uterine leiomyoma 18994946 Active 2024 Remy Alanis MD [address], [place], [address], [facility] 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 5 11:31:16 Problem Notes None recorded. Procedures Surgical History Date Name Laterality Status Provider Name and Address Organization Details Recorded Time 5 Date of Last Pap Smear completed Vivian Nuñez [facility] 10/19/2024 11:28:22 2 Nexplanon Removal completed Roxy Lozano MD [address], [place], [address], [facility] 08/06/2021 16:08:17 Imaging Results [...] Updated DateTime 01/10/2025 170.18 cm 34.6 kg/m2 862745.91 g 112/72 mm[Hg] Vivian Nuñez [facility] 01/10/2025 14:09:47 Social History Question Answer Notes LastModified by Organizat ion Details LastModified Time Tobacco Smoking Status Never Smoker Doloresbryant Martinezisabel peñaloza [facility] 07/18/2021 14:18:06 In The 14 [...] ICD10 Code Diagnosis IMO Codes Diagnosis Note [id number] Remy Alanis MD [place] [address] [address] 12/16/2024 10:16:43 12/16/2024 11:00:55 care status 207117235 Z34.82 [id number] Remy Alanis MD [place] [address] [address] 01/10/2025 13:31:58 01/10/2025 14:42:34 care status 621284090 Z34.82 [id number] Health Concerns Section Related Observation LastModified by Organization Detai ls LastModified Time None Recorded Concern Status LastModified by Organization Details LastModified Time None Recorded Payers Encounter Date Sequence Insurance Name Policy Number Policy Pineda Covered Member ID Pineda Member ID Guarantor Name 01/10/2025 1 [id number] Jose Ernst [id number] Eleniedinson [place] Notes Date Note Type Note Provider Name and Address Organization Details Recorded Time 01/10/2025 text/html Generic HPI TemplateReported by Patient Remy Alanis MD [address], [place], [address], [facility] 01/10/2025 14:36:41 OBGyn Episode Ob Episode Information Episode Created Date Number of Fetuses Patient Bloodtype Patient rh Status Prepregnancy Weight lbs Domestic Partner Domestic Partner Phone Father Name [employer] Agent Status 10/20/19 1 O Negative 210.99 OPEN Fetus Data First Name Last Name Admitted to NICU Weight (g) Sex Living Outcome Pediatric Complications Fetus ID Race Codes Race Delivery Type [id number] Problems Problem Notes per [facility] antibody e p ending titers 11/25 MFM called Anti E low unable to run titers Problem Name Start Date End Date Resolution Snomed Code Not e Multigravida of advanced maternal age 0710/19/2024 010228859 >40 testing @ 36wks Uterine leiomyoma 10/19/2024 35223974 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 12/16/2024 768825738 [facility]&S lab with antibody titer q4, would need MCA dopplers and MFM notified if titer reaches 16 or greater Cervical incompetence 10/19/2024 0196634 5 cerclage in 2nd viable delivered at 38 weeks. MFM referral faxed 11/16 scheduled 11/17 sent to [facility] for evaluation cerclaged placed 11/18 [facility] scheduled for follow up & us 11/24 & 12/22 US & Consult & 01/03 0945 [facility] office Ramana Calculation Initial Ramana Date [...] Weight in lbs Pre/Post Dialysis Refused Weight 212.475491908686 BP Diastolic BP Location Tested BP Systolic [...] Type Weight in lbs Pre/Post Dialysis Refused 213.516642202733 BP Diastolic BP Location Tested BP Systolic BP Type 82 L arm 129 sitting Fetus Heart Rate Present A 144 Fetus Movement A Yes Comments to see [facility] for history of ce rvical incompetence and cerclage. Currently has a dynamic cervix. It funnels down to 2.8 cm. Flowsheet Date 12/16/2024 Montejo Score Blood Edema Fundus Height Fundus Units Glucose Ketones Leukocytes Nitrite Labor Signs Protein Cervic Dilation Cervic Effacement Cervic Station Type Weight in lbs Pre/Post Dialysis Refused Weight 219.702943077748 BP Diastolic BP Location Tested BP Systolic [...] Weight in lbs Pre/Post Dialysis Refused Weight 221.794419369071 BP Diastolic BP Location Tested BP Systolic [...] Type Weight in lbs Pre/Post Dialysis Refused 220.689718370613 BP Diastolic BP Location Tested BP Systolic BP Type 73 L arm 110 sitting Fetus Heart Rate Present A Present Fetus Movement A Yes Comments Patient report BH contractio ns yesterday, irregular today. No bleeding or leakage of fluid. EFW 84%, cerclage seen on US. Vertex. GCT and labs at [place] today, needs to return for Rhogam. Discussed [...]
--- OUTSIDE RECORDS SUMMARY | 2025-02-10 01:12 | XMS_ITS | Clinical Summary ---
Author Organization [facility] Address [address] [place] [address] Care Team Providers Care Holter Technician Name Role Phone Unavailable Primary Care Provider Unavailabl e Source Comments [facility],non-owned Affiliates and Associated Physician Practices is amultiple site organization consisting of ambulatory clinics and hospital sitesin [place], [place], [place] and [place]. This disclosure is being madepursuant to the Care Everywhere program and may not contain all information available regarding this patient. Last updated 17.[facility] Allergies Active Allergy Reactions Criticality Noted Date Comments Pollen Extract Eye Redness,Eye Itching 11/18/19 25 Medications * Be aware that medications may not be up to date on this document. Alwaysverify current medications with the patient. Vit-DSS-Fe Fum-FA ( vitamin with iron) tablet Take 1 (one) tablet by mouth once daily Active indomethacin (Indocin) 25 MG capsule Take 1 (one) capsule by mouth every 6 hours 6 capsule 11/18/2024 4:06 PM CDT 5 Active Additional Information Patient not taking.Reported on 11/24/2024 Progesterone 200 MG capsuleIndicati ons:Short cervix with cervical cerclage in second trimester, antepartum (HCC) Insert 1 (one) capsule into the vagina at bedtime 30 capsule 3 5 Active Active Problems Problem Noted Date Diagnosed Date Cervical insufficiency durin g in second trimester, antepartum 11/24/2024 Antibody E isoimmunization affecting , antepartum 11/24/2024 Encounter for screening for cervical l ength 11/17/2024 Estimated Date of Delivery Comme nts Yes 05/06/2025 Based on Ultraso und Encounters Date Type Department Care Team Description 01/14/2025 11:01 AM CDT - 01/14/2025 11:59 PM CDT Hospital Encounter [facility] [address] [place] [id number] Jostin Melissa MD Discharge Disposition: Home or Self Care 01/14/2025 Travel 01/10/2025 Telephone [facility] [address] [place] [address] [phone] Libertad Mina, RN Returned Call (Calling patient back about message she left needing refill of progesterone. 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 Discharge Disposition: Home or Self Care 12/23/2024 Results Follow-Up [facility] - [employer] [facility] [facility] [address] [place] [address] Eduardo Godinez MD 12/22/2024 11:25 AM CDT - 12/22/2024 11:59 PM CDT Hospital Encounter [facility] [address] [place] [phone] Eduardo Godinez MD Discharge Disposition: Home or Self Care 12/22/2024 11:00 AM CDT visit [facility] - [employer] [address] [place] [address] Eduardo Godinez MD GA: 20w5d 12/22/2024 9:30 AM CDT Procedure visit [facility] - [employer] [address] [place] [address] Multigravida of advanced maternal age in second trimester ([facility]) ; Encounter for screening for cervical length ([facility]); Cervical cerclage suture present in second trimester ([facility]); Cervical insufficiency during in second trimester, antepartum ([facility]); Encounter for anatomic survey ([facility]); Obesity affecting in second trimester, unspecified obesity type ([facility]); Class 1 obesity; Anti-E isoimmunization affecting , antepartum, single or unspecified fetus ([facility]); Cervical shortening in second trimester ([facility]); Raised antibody titer 12/22/2024 Travel 12/13/2024 8:51 AM CDT - 12/13/2024 11:59 PM CDT Hospital Encounter [facility] [address] [place] [address] Kori Galo MD Discharge Disposition: Home or Self Care 12/06/2024 9:32 AM CDT - 12/06/2024 11:59 PM CDT Hospital Encounter [facility] [address] [place] [address] Leonel, Corrie Rodriguez MD Discharge Disposition: Home or Self Care 12/06/2024 Travel 12/03/2024 Telephone [facility] [address] [place] [address] Sukhjinder Starks, DO Results 11/24/2024 10:00 AM CDT visit [facility] [employer] [address] [place] [address] Kaden Angeles MD GA: 16w5d 11/24/2024 9:00 AM CDT - 11/24/2024 11:59 PM CDT Hospital Encounter [facility] UN[facility] [address] [place] [address] Jostin Melissa MD Discharge Disposition: Home or Self Care 11/24/2024 Travel 11/19/2024 Telephone [facility]ATION UNIT [address] [place] [phone] Leydi Leigh RN Hospitalization; Hospital Follow-up 11/19/2024 Telephone [facility] [employer] [address] [place] [phone] Mone Akbar MD Care 11/18/2024 2:14 PM CDT Anesthesia Event [facility] [address] [place] [address] Ramírez Lehman MD Mattson, Kristen E, DEVELOPMENT EDITOR-HAIR OR BEAUTY SALON MANAGER 11/18/2024 2:00 PM CDT - 11/18/2024 3:09 PM CDT Surgery [facility] [address] [place], [place] [phone] Neri Caro MD CERCLAGE CERVIX 11/18/2024 Telephone [facility]/ EVALUATION UNIT 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 Discharge Disposition: Home or Self Care 11/17/2024 Travel 11/17/2024 Telephone [facility] [address] [place] [address] Libertad Mina RN Referral (Called and spoke with patient and she reports she is feeling pelvic pressure and felt like when they did the transvaginal ultrasound at her OB office yesterday that they did not have to go far to get to her cervix/uterus.) from Last 3 Months Immunizations Immunization Administration Dates Next Due Rho D Immune Globulin 11/18/2024 Family History Medical History Relation Name Comments Hypertension Maternal Grandmother Hypertension Mother Relation Name Status Comments Father Alive Maternal Grandmother Mother Social History Tobacco Use Types Packs/Day Years Used Date Smoking Tobacco: Never Passive Smoke Exposure: Never Smokeless Tobacco: Never Tobacco Cessation:Counseling Given: No Alcohol Use Standard Drinks/Week Comments Not Currently 0 (1 standard drink = 0.6 oz pur e alcohol) socially prior to Overall Financial Resource Strain (CARDIA) Answe r Date Recorded How hard is it for you to pa y for the very basics like food, housing, medical care, and heating? Not hard at all 11/17/2024 [facility] [place] [facility] - Occupational Stress [...] things needed for daily living? No 11/17/2024 [place] Depression Scale Answer Date Recorded [place] Depression Scale Total 3 11/24/2024 The thought [...] any time in the past 12 m [place], were you homeless or living in a snf (including now)? No 11/17/2024 Education Answer Date [...] Orientation Straight 11/19/2024 11 :51 AM CDT Last Filed Vital Signs Vital Sign Reading Time Taken Comments Blood Pressure 108/74 12/22/2024 10:31 AM CDT Pulse 93 11/18/2024 9:25 PM CDT Temperature 36.6 C (97.9 F) 11/18/2024 9:25 PM CDT Respiratory Rate 18 11/18/2024 9:25 PM CDT Oxygen Saturation 99% 11/18/2024 9:25 PM CDT Inhaled Oxygen Concentration - - Weight 97.5 kg (215 lb) 12/22/2024 10:31 AM CDT Height 170.2 cm (5' 7) 12/22/2024 10:31 AM CDT Body Mass Index 33.67 12/22/2024 10:31 AM CDT Plan of Treatment Upcoming Encounters Date Type Department Care Team (Late st Contact Info) Description 05/06/2025 Hospital Encounter [facility] 5 LDR [address] [place] [address] Health Maintenance Due Date Last Done Comments LIPID TESTING 1983 MAMMOGRAM 1983 HEPATITIS C SCREENING 01/24/2001 DTAP/TDAP/TD VACCINES (1 - Tdap) 2002 HEPATITIS B VACCINE (1 of 3 - 19+ 3-dose series) 2002 HPV VACCINE (1 - 3-dose SCDM series) 2010 PAP with HPV 2013 DEPRESSION SCREENING 03/24/2024 COVID-19 VACCINE (1 - 2024-2 6 season) 2024 INFLUENZA VACCINE (#1) 2024 OB-ONE HOUR GLUCOSE 01/28/2025 OB-TDAP CURRENT 02/04/2025 Respiratory Syncytial Virus (RSV) Vaccine Pt: or over 60 yrs (1 - Risk 1-dose series) 03/11/2025 Cervical Cancer Screening 09/22/2027 PAP SMEAR 09/22/2027 09/21/2024, 09/21/2024 SCREENING FOR DIABETES 12/23/2027 , 11/17/2024 ZOSTER VACCINE (1 of 2) 2033 HIV SCREENING Completed 10/19/2024 OB-RHOGAM INJECTION Completed 11/18/2024 HIB VACCINE Aged Out No longer eligi ble based on patient's age to complete this topic MENINGOCOCCAL (Group B) VACCINE SHARED DECISION-MAKING Aged Out No longer eligible based on patient's age to complete this topic MENINGOCOCCAL GROUPS A/C/Y/W VACCINE Aged Out No longer eligible b ased on patient's age to complete this topic PNEUMOCOCCAL VACCINE Aged Out No long er eligible based on patient's age to complete this topic Procedures Procedure Name Priority Date/Time Associated Diagnosis Comments SONOGRAM - TRANSVAGINAL Routine 01/14/2025 11:30 AM CDT Cervical cerclage suture present in second trimester (HCC) Encounter for screening for cervical length (HCC) Anti-E isoimmunization affecting , antepartum, single or unspecified fetus (HCC) SONOGRAM - TRANSVAGINAL Routine 01/03/2025 9:29 AM CDT Cervical cerclage suture present in second trimester (HCC) Encounter for screening for cervical length (HCC) Anti-E isoimmunization affecting , antepartum, single or unspecified fetus (HCC) ANTIBODY IDENTIFICATION Routine 12/22/2024 11:37 AM CDT Anti-E isoimmunization affecting , antepartum, single or unspecified fetus (HCC) TYPE + SCREEN PANEL Routine 12/22/2024 1 1:37 AM CDT Anti-E isoimmunization affecting , antepartum, single or unspecified fetus (HCC) HEMOGLOBIN A1C - POINT OF CARE (AMB) [facility] Routine 12/22/2024 10:52 AM CDT Screening for venereal disease URINALYSIS - POINT OF CARE (AMB) [facility] Routine 12/22/2024 10:28 AM CDT Screening for venereal disease SONOGRAM - TRANSVAGINAL Routine 12/22/2024 9:32 AM CDT Encounter for screening for cervical length (HCC) Cervical cerclage suture present in second trimester (HCC) Cervical insufficiency during in second trimester, antepartum (HCC) SONOGRAM - TRANSVAGINAL Routine 12/13/2024 9:42 AM CDT Encounter for screening for cervical length (HCC) Cervical cerclage suture present in second trimester (HCC) Cervical insufficiency during in second trimester, antepartum (HCC) SONOGRAM - TRANSVAGINAL Routine 12/06/2024 9:46 AM CDT Encounter for screening for cervical length (HCC) Cervical cerclage suture present in second trimester (HCC) Cervical insufficiency during in second trimester, antepartum (HCC) URINALYSIS - POINT OF CARE (AMB) [facility] Routine 11/24/2024 10:49 AM CDT Screening for venereal disease SONOGRAM - TRANSVAGINAL Routine 11/24/2024 9:35 AM CDT Cervical cerclage suture present in second trimester (HCC) CARDIAC RHYTHM STRIP ORDER 11/19/2024 5:27 PM CDT NEURAXIAL BLOCK Routine 11/18/2024 2:53 PM CDT WA REVISION CERVIX W PREG,VAG APPRCH 11/18/2024 2:02 PM CDT SONOGRAM - LIMITED Routine 11/18/2024 8: 18 AM CDT ANTIBODY TITER Routine 11/18/2024 7:41 AM CDT BLOOD TYPE VERIFICATION Routine 11/18/2024 6:55 AM CDT URINALYSIS REFLEX MICROSCOPIC REFLEX CULTURE Routine 11/17/2024 9:12 PM CDT Encounter for screening for cervical length (HCC) CULTURE URINE Routine 11/17/2024 9:12 PM CDT Encounter for screening for cervical length (HCC) TRICHOMONAS VAGINALIS CAT Routine 11/17/2024 9:10 PM CDT Encounter for screening for cervical length (HCC) CHLAMYDIA AND N. GONORRHOEAE CAT Routine 11/17/2024 9:10 PM CDT Encounter for screening for cervical length (HCC) ANTIBODY ID 2 RFLXD Routine 11/17/2024 9 :09 PM CDT E ANTIGEN TYPING (SOFTBANK BB) Routine 11/17/2024 9:09 PM CDT ANTIBODY IDENTIFICATION Routine 11/17/2024 9:09 PM CDT TYPE + SCREEN PANEL STAT 11/17/2024 9 :09 PM CDT COMPREHENSIVE METABOLIC PANEL STAT 11/17/2024 9:09 PM CDT Encounter for screening for cervical length (HCC) CBC W AUTO DIFFERENTIAL STAT 11/17/2024 9:09 PM CDT Encounter for screening for cervical length (HCC) from Last 3 Months Results * Sonogram - Transvaginal (01/14/2025 11:30 AM CDT) Only the most recent of6 resultswithin the time period is included. Linked Results Indication ======== with history of labor (PTL) High risk , other Supervision of with other poor obstetric history Maternal obesity complicating , class 1 (BMI 30.0 - 34.9) Advanced maternal age (AMA), multigravida History ====== OB History 5. Para 2 T1 1. live 2011. Gest. age 32 w + 4 d. Weight 1,984 g. Details: PTL, vaginal delivery 2. live 2013. Gest. age 38 w + 0 d. Weight 2,835 g. Details: Cerclage, vaginal delivery Lab Tests Test Date Result NIPT Low risk, Male Maternal Assessment Physical Exam Height 170 cm, 5 ft 7 in. Weight 99 kg, 218 lb. Initial weight 96 kg, 212 lb. BMI 34.14 kg/m . Initial BMI 33.20 kg/m . Weight gain 3 kg, 6 lb Method ====== Transabdominal and transvaginal ultrasound. View: Sufficient ========= Moyer . Number of fetuses: 1 Dating ====== Date Details Gest. age ISMAEL Stated ISMAEL 24 w + 0 d 05/06/2025 Previous U/S 09/21/2024 GA, GA 7 w + 4 d 24 w + 0 d 05/06/2025 U/S 01/14/2025 based upon AC, BPD, Femur, HC 25 w + 1 d 04/28/2025 Assigned dating based on ultrasound (GA), selected on 11/18/2024 24 w + 0 d 05/06/2025 General Evaluation Cardiac activity present. FHR 142 bpm. Presentation: cephalic Placenta: Placental site: anterior Umbilical cord: Cord vessels: 3 vessel cord Amniotic fluid: Amount of AF: normal. MVP 7.7 cm Biometry BPD 60.2 mm 24w 4d 63% Hadlock HC 227.4 mm 24w 5d 62% Hadlock AC 197.4 mm 24w 3d 54% Hadlock Femur 49.3 mm 26w 4d 97% Hadlock Humerus 44.4 mm 26w 3d 96% Shwetha HC / AC 1.15 Weight Calculation: EFW 788 g 91% Hadlock EFW (lb,oz) 1 lb 12 oz EFW by Hadlock ([id number]-PG-ET-FL) LGA Growth Overview Exam date GA BPD (mm) HC (mm) AC (mm) FL (mm) HL (mm) EFW (g) 11/18/2024 15w 6d 34.7 83% 128.6 73% 117.1 93% 23 84% 23.8 96% 182 98% 12/22/2024 20w 5d 52 86% 190.9 70% 169.5 81% 38.4 89% 37.7 99% 469 96% 01/14/2025 24w 0d 60.2 63% 227.4 62% 197.4 54% 49.3 97% 44.4 96% 788 91% Anatomy The following structures appear normal: Abdomen Stomach. Kidneys. Bladder. sex: male. Maternal Structures Cervix reassuring Approach - Transvaginal: Cervical length 2.20 cm Cervical cerclage present Impression ========= Single, live, intrauterine at 24w0d The amniotic fluid volume is normal Transvaginal cervical length is reassuring/stable with cerclage imaged intact, in situ Comment ======== ultrasound alone cannot detect all structural, genetic, or functional , placental, or maternal abnormalities Follow-up ======== Follow up ultrasound in 4 weeks to assess size Coding ====== Diagnoses O09.522: Supervision of elderly multigravida O99.212, E66.811: Obesity complicating , class 1 (BMI 30.0 - 34.9) O09.292: Supervision of with other poor reproductive or obstetric history O09.892: Supervision of other high risk pregnancies O09.212: Supervision of with history of pre-term labor Procedures 57008: US Uterus Limited 33698: US Preg Uterus Transvaginal [facility] PACS Anatomical Region Laterality Modality Other 01/14/2025 11:3 0 AM CDT [facility] Eliazar Alanis MD [facility] ORDERABLES Edited Result - Final * TYPE + SCREEN PANEL (12/22/2024 11:37 AM CDT) Only the most recent of2 resultswithin the time period is included. ABO Rh O NEG 12/22/2024 1:36 PM CDT [facility] Comment:History checked. Antibody Screen POS 1:36 PM CDT [facility] Blood Bank BLOOD SPECIMEN / Unknown Lab Venipuncture / Unknown 12/22/2024 11:37 AM CDT 12/22/2024 11:37 AM CDT Eduardo Godinez MD LAB - BLOOD BANK ORDERABLES Fi nal Result [facility] [address] [place] [address] * ANTIBODY IDENTIFICATION (12/22/2024 11:37 AM CDT) Only the most recent of2 resultswithin the time period is included. Antibody 1 POS, Anti-D Passive, RhIg Given 12/22/2024 1:37 PM CDT [facility] Blood Bank BLOOD SPECIMEN / Unknown Lab Venipuncture / Unknown 12/22/2024 11:37 AM CDT 12/22/2024 11:37 AM CDT Eduardo Godinez MD LAB - BLOOD BANK ORDERABLES Fi nal Result Performing Organization Address City/[facility]/ZIP Co de Phone Number [facility] [address] [place] [address] * HEMOGLOBIN A1C - POINT OF CARE (AMB) [facility] (12/22/2024 10:52 AM CDT) Pathologist [facility] Hemoglobin A1c POCT 5.9 % [facility] [address] BLOOD SPECIMEN / Unknown 12/22/2024 10:52 AM CDT Eduardo Godinez MD LAB - POINT OF CARE ORDERABLES Final Result Performing Organization Address City/[facility]/ZIP Co de Phone Number [facility] [address] [place] [address] [phone] * URINALYSIS - POINT OF CARE (AMB) [facility] (12/22/2024 10:28 AM CDT) Only the most recent of2 resultswithin the time period is included. Specific [place] UA 1.[address] [facility] [address] pH UA 7 [facility] [address] WBC UA neg [facility] [address] Nitrite UA neg [facility] [address] Protein UA trace [facility] [address] Glucose UA normal [facility] [address] Ketones UA POCT neg [facility] [address] Urobilinogen UA normal [facility] [address] Bilirubin UA POCT neg [facility] [address] Blood Urine POCT neg [facility] [address] Urine URINE / Unknown 12/22/2024 1 0:28 AM CDT us Eduardo Godinez MD LAB - POINT OF CARE ORDERABLES Final Result [facility] [address] [place] [address], [facility] [phone] * CARDIAC RHYTHM STRIP ORDER (11/19/2024 5:27 PM CDT) Narrative 11/19/2024 5:27 PM CDT Ordered by an unspecified provider. us Scanned Document [facility] ORDERABLES Fin al Result * Neuraxial Block (11/18/2024 2:53 PM CDT) Narrative Nadine Felton APRN-HAIR OR BEAUTY SALON MANAGER - 11/18/2024 2:53 PM CDT Nadine Felton APRN-CRNA 11/18/2024 2:56 PM Neuraxial Block Note Pre-Procedure: Procedure Name: Neuraxial Block Patient Location: OR Indications: at surgeon's request, at patient's request and surgical anesthesia Pre-Anesthetic Checklist: Patient identified, IV Checked, Risks and benefits discussed, Surgical consent verified, Monitors and equipment, Site examined, Pre-op evaluation done, Time-out performed, Informed consent obtained, Questions answered/anesthesia questions answered and Allergies reviewed Anticoagulation/ Anti-thrombosis status confirmed? Yes Supplemental O2: room air Monitors: BP, continuous pluse ox, EKG and End tidal CO2 Patient Condition: awake Patient Sedated? No Procedure: Block Type: Spinal Prep: Betadine Sterile Field: mask, cap/hat, sterile established and sterile gloves Approach: midline Skin was localized? Yes Skin localized with: lidocaine (XYLOCAINE) 1 % injection - Infiltration 3 mL - 11/18/2024 2:24:00 PM Spinal Block: Needle Type: spinal needle Needle Gauge: 25 Needle Length: 90 mm Placement Site: L2-3 Number of Attempts: 2 CSF: free flow, aspiration before injection, aspiration during injection, aspiration after injection Local anesthetics used? No Degree of difficulty: moderate Procedure Tolerance: tolerated moderately Position post procedure: supine Vital Signs: Vital signs monitored and stable throughout. See anesthesia record for details. Start Time: 11/18/2024 2:20 PM End Time: 11/18/2024 2:32 PM Total Time: 12 Staff: Anesthesia Provider: Kimberly Ching - performed the procedure Provider #1: Nadine Felton APRN-CRNA - performed the procedure us Ramírez Lehman MD GENERAL ANESTHESIA ANNAPOLISErnesto CORBETT Final Result * Sonogram - Limited (11/18/2024 8:18 AM CDT) Linked Results Indication ======== with history of labor (PTL) G2- 32w4d Supervision of with other poor obstetric history G4- Cerclage Maternal obesity complicating , class 1 (BMI 30.0 - 34.9) Advanced maternal age (AMA), multigravida History ====== OB History 1. live 2011. Gest. age 32 w + 4 d. Weight 1,984 g. Details: PTL, vaginal delivery 2. live 2013. Gest. age 38 w + 0 d. Weight 2,835 g. Details: Cerclage, vaginal delivery Maternal Assessment Physical Exam Height 170 cm, 5 ft 7 in. Weight 96 kg, 212 lb. Initial weight 96 kg, 212 lb. BMI 33.20 kg/m . Initial BMI 33.20 kg/m . Weight gain 0 kg, 0 lb Method ====== Transabdominal ultrasound. View: Suboptimal view: limited by early gestational age ========= Moyer . Number of fetuses: 1 Dating ====== Date Details Gest. age ISMAEL Stated ISMAEL 15 w + 6 d 05/06/2025 Previous U/S 09/21/2024 GA, GA 7 w + 4 d 15 w + 6 d 05/06/2025 U/S 11/18/2024 based upon AC, BPD, Femur, HC 16 w + 6 d 04/29/2025 Assigned dating based on ultrasound (GA), selected on 11/18/2024 15 w + 6 d 05/06/2025 General Evaluation Cardiac activity present. FHR 158 bpm. Presentation: cephalic Placenta: Placental site: anterior Umbilical cord: Cord vessels: 3 vessel cord. Insertion site: normal insertion Amniotic fluid: Amount of AF: normal. MVP 4.8 cm Biometry BPD 34.7 mm 16w 5d 83% Hadlock HC 128.6 mm 16w 4d 73% Hadlock AC 117.1 mm 17w 3d 93% Hadlock Femur 23.0 mm 16w 6d 84% Hadlock Humerus 23.8 mm 17w 3d 96% Shwetha HC / AC 1.10 -/- 3% Hadlock Weight Calculation: EFW 182 g 98% Hadlock EFW (lb,oz) 0 lb 6 oz EFW by Hadlock ([id number]-[id number]) LGA Growth Overview Exam date GA BPD (mm) HC (mm) AC (mm) FL (mm) HL (mm) EFW (g) 11/18/2024 15w 6d 34.7 83% 128.6 73% 117.1 93% 23 84% 23.8 96% 182 98% Anatomy The following structures appear normal: Head / Neck Cranium. Lateral ventricles. Choroid plexus. Midline falx. Heart / Thorax 4-chamber view. Abdomen Cord insertion. Stomach. Kidneys. Bladder. Extremities / Skeleton Arms. Legs. The following structures could not be adequately visualized: Head / Neck Cerebellum. Face Profile. Heart / Thorax Diaphragm. Spine Cervical spine. Thoracic spine. Lumbar spine. Sacral spine. Extremities / Skeleton Hands. Feet. Maternal Structures Cervix reassuring Cervical length 3.06 cm Right Ovary Visualized Left Ovary Not visualized Impression ========= Single live intrauterine at 15w6d The size is AGA The amniotic fluid volume is normal The transvaginal cervical length is reassuring There is a small amount of intraamniotic sediment at the level of the internal os No major malformations were seen within the limitations of ultrasound Comment ======== The patient was inpatient at the time of the study ultrasound alone cannot detect all structural, genetic, or functional , placental, or maternal abnormalities Follow-up ======== Follow up ultrasound as clinically indicated and per inpatient team Coding ====== Diagnoses O09.522: Supervision of elderly multigravida O99.212, E66.811: Obesity complicating , class 1 (BMI 30.0 - 34.9) O09.292: Supervision of with other poor reproductive or obstetric history O09.212: Supervision of with history of pre-term labor Procedures 27391: US Preg Uterus >14 weeks 96505: US Preg Uterus [facility] PACS Anatomical Region Laterality Modality Other 11/18/2024 8:18 AM CDT Neri Caro MD [facility] ORDERABLES Edited Result - Final * ANTIBODY TITER (11/18/2024 7:41 AM CDT) Antibody Titer NT 11/23/2024 12:09 PM CDT [facility] Antibody Identification POS, Anti-E 11/23/2024 12:09 PM CDT [facility] Comment:Anti-E not identifie d at [employer] Blood BLOOD SPECIMEN / Unknown Lab Venipuncture / Unknown 11/18/2024 7:41 AM CDT 11/18/2024 7:48 AM CDT Narrative [facility] - 11/23/2024 12:09 PM CDT Testing performed by [facility]. Neri Caro MD LAB - BLOOD BANK ORDER ANNAMARIA Final Result [facility] [address] [place] [address] * BLOOD TYPE VERIFICATION (11/18/2024 6:55 AM CDT) ABO Rh O NEG 11/18/2024 8:2 4 AM CDT [facility] Blood Bank BLOOD SPECIMEN / Unknown Lab Venipuncture / Unknown 11/18/2024 6:55 AM CDT 11/18/2024 7:57 AM CDT Neri Caro MD LAB - BLOOD BANK ORDER ANNAMARIA Final Result Performing Organization Address City/[facility] Co de Phone Number [facility] [address] [place] [address] * (ABNORMAL) URINALYSIS REFLEX MICROSCOPIC REFLEX CULTURE (11/17/2024 9:12 PM CDT) Color UA Yellow Yellow, Straw 11/17/2024 9:24 PM CDT [facility] Clarity UA Turbid(A) Clear 11/17/2024 9:24 PM CDT [facility] Glucose UA Normal Normal 11/17/2024 9:24 PM CDT [facility] Bilirubin UA Negative Negative 11/17/2024 9:24 PM CDT [facility] Ketone UA 1+(A) Negative 11/17/2024 9:24 PM CDT [facility] Specific Guthrie UA 1.026 1.005 - 1.030 11/17/2024 9:24 PM CDT [facility] Blood UA Negative Negative 11/17/2024 9:24 PM CDT [facility] pH UA 5.5 5.0 - 8.0 11/17/2024 9:24 PM CDT [facility] Protein UA Trace(A) Negative 11/17/2024 9:24 PM CDT [facility] Urobilinogen UA Normal Normal mg/dL 11/17/2024 9:24 PM CDT [facility] Nitrite UA Negative Negative 11/17/2024 9:24 PM CDT [facility] Leukocyte Esterase UA 75 JOSE/uL(A) Negative 11/17/2024 9:24 PM CDT [facility] RBC UA 6-10(A) 0 - 5 # /hpf 11/17/2024 9:24 PM CDT [facility] WBC UA 6-10(A) 0 - 5 # /hpf 11/17/2024 9:24 PM CDT [facility] Bacteria UA 3+(A) None Seen 11/17/2024 9:24 PM CDT [facility] Squamous Epithelial Cells >20(A) 0 - 5 /hpf 11/17/2024 9:24 PM CDT [facility] Mucus UA 1+ /LPF 11/17/2024 9:24 PM CDT [facility] Reflex Status Culture to follow 11/17/2024 9:24 PM CDT [facility] Urine URINE SPECIMEN OBTAINED BY CLEAN CATCH PROCEDURE / Unknown Collection / Unknown 11/17/2024 9:12 PM CDT 11/17/2024 9:15 PM CDT Narrative [facility] - 11/17/2024 9:24 PM CDT Neri Caro MD LAB - URINALYSIS ORDER ANNAMARIA Final Result [facility] [address] [place] [address] * CULTURE URINE (11/17/2024 9:12 PM CDT) Culture Urine 50,000-100,000 CFU/mL urogenital tomer MARIO 11/19/2024 3:34 PM CDT [facility] Urine URINE SPECIMEN OBTAINED BY CLEAN CATCH PROCEDURE / Unknown Collection / Unknown 11/17/2024 9:12 PM CDT 11/17/2024 9:15 PM CDT Neri Caro MD LAB - MICROBIOLOGY ORD ERABLES Final Result Performing Organization Address City/[facility]/ZIP Co de Phone Number [facility] [address] [place] [address], [place] [phone] * TRICHOMONAS VAGINALIS CAT (11/17/2024 9:10 PM CDT) Trichomonas by CAT NEGATIVE NEGATIVE 11/18/2024 11:05 PM CDT [facility] Microbiology ENTIRE VAGINA / Unknown Collection / Unknown 11/17/2024 9:10 PM CDT 11/17/2024 10:44 PM CDT Narrative [facility] - 11/18/2024 11:05 PM CDT This test performed by Qualitative real-time Polymerase Chain Reaction (PCR). Neri Caro MD LAB - MICROBIOLOGY ORD ERABLES Final Result Performing Organization Address [facility] Co de Phone Number [facility] [address] [place] [address], [place] [phone] * CHLAMYDIA AND N. GONORRHOEAE CAT (11/17/2024 9:10 PM CDT) Chlamydia by CAT NEGATIVE NEGATIVE 11/18/2024 11:05 PM CDT [facility] Neisseria gonorrhoeae CAT NEGATIVE NEGATIVE 11/18/2024 11:05 PM CDT [facility] Microbiology ENTIRE VAGINA / Unknown Collection / Unknown 11/17/2024 9:10 PM CDT 11/17/2024 10:44 PM CDT Narrative [facility] - 11/18/2024 11:05 PM CDT This test performed by Qualitative real-time Polymerase Chain Reaction (PCR). Neri Caro MD LAB - MICROBIOLOGY ORD ERABLES Final Result Performing Organization Address City/[facility]/ZIP Co de Phone Number [facility] [address] [place] [address], [place] [phone] * E ANTIGEN TYPING (SOFTBANK BB) (11/17/2024 9:09 PM CDT) Pathologist [facility] E Antigen NEG 11/17/2024 11:05 PM CDT [facility] Blood Bank BLOOD SPECIMEN / Unknown Venipuncture / Unknown 11/17/2024 9:09 PM CDT 11/17/2024 9:15 PM CDT Neri Caro MD LAB - BLOOD BANK ORDER ANNAMARIA Final Result Performing Organization Address City/[facility]/ZIP Co de Phone Number [facility] [address] [place] [address] * ANTIBODY ID 2 [id number] (11/17/2024 9:09 PM CDT) Pathologist [facility] Antibody 1 POS, Anti-D Passive, RhIg Given 11/23/2024 8:11 AM CDT [facility] Comment:Per [employer] Refer ence Lab. Blood Bank BLOOD SPECIMEN / Unknown Venipuncture / Unknown 11/17/2024 9:09 PM CDT 11/17/2024 9:15 PM CDT Neri Caro MD LAB - BLOOD BANK ORDER ANNAMARIA Final Result Performing Organization Address City/[facility] Co de Phone Number [facility] [address] [place] [address] * (ABNORMAL) CBC W AUTO DIFFERENTIAL (11/17/2024 9:09 PM CDT) Pathologist [facility] WBC 8.1 4.0 - 10.7 x10E9/L 11/17/2024 9:19 PM CDT [facility] RBC Count 3.83(L) 3.90 - 5.20 x10E12/L 11/17/2024 9:19 PM CDT [facility] Hemoglobin 12.0 11.9 - 15.8 g/dL 11/17/2024 9:19 PM CDT [facility] Hematocrit 33.1(L) 34.8 - 46.1 % 11/17/2024 9:19 PM CDT [facility] MCV 86.4 80.0 - 98.0 fL 11/17/2024 9:19 PM CDT [facility] MCH 31.3 26.7 - 33.6 pg 11/17/2024 9:19 PM CDT [facility] MCHC 36.3 31.7 - 36.3 g/dL 11/17/2024 9:19 PM [facility] RDW-CV 11.8 11.3 - 14.8 % 11/17/2024 9:19 PM [facility] Platelet Count 236 150 - 420 x10E9/L 11/17/2024 9:19 PM CDT [facility] MPV 10.4 7.8 - 11.4 fL 11/17/2024 9:19 PM [facility] Neutrophil % 71.8 41.0 - 74.0 % 11/17/2024 9:19 PM [facility] Lymphocyte % 18.0 17.0 - 47.0 % 11/17[facility]2024 9:[facility] Monocyte % 6.7 3.0 - 11.0 % 11/17/2024 9:[facility] Eosinophil % 2.6 0.0 - 7.0 % 11/17/2024 9:19 PM [facility] Basophil % 0.4 0.0 - 1.6 % 11/17/2024 9:[facility] Immature Granulocytes % 0.5 0.0 - 1.0 % 11/17/2024 9:19 PM [facility] Neutrophil Absolute 5.81 1.60 - 7.50 x10E9/L 11/17/2024 9:19 PM [facility] Lymphocyte Absolute 1.46 1.00 - 4.40 x10E9/L 11/17/2024 9:19 PM CDT [facility] Monocyte Absolute 0.54 0.15 - 1.00 x10E9/L 11/17/2024 9:19 PM CDT [facility] Eosinophil Absolute 0.21 0.00 - 0.60 x10E9/L 11/17/2024 9:19 PM CDT [facility] Basophil Absolute 0.03 0.00 - 0.13 x10E9/L 11/17/2024 9:19 PM CDT [facility] Blood BLOOD SPECIMEN / Unknown Venipuncture / Unknown 11/17/2024 9:09 PM CDT 11/17/2024 9:15 PM CDT us Neri Caro MD LAB - HEMATOLOGY ORDER ANNAMARIA Final Result [facility] [address] [place], [place] [id number] * (ABNORMAL) COMPREHENSIVE METABOLIC PANEL (11/17/2024 9:09 PM CDT) Glucose 97 70 - 99 mg/dL 11/17/2024 9:32 PM CDT [facility] Sodium 138 136 - 145 mmol/L 11/17/2024 9:32 PM CDT [facility] Potassium 3.6 3.5 - 5.1 mmol/L 11/17/2024 9:32 PM CDT [facility] Chloride 109(H) 98 - 107 mmol/L 11/17/2024 9:32 PM CDT [facility] CO2 20(L) 22 - 29 mmol/L 11/17/2024 9:32 PM CDT [facility] Calcium 9.1 8.4 - 10.4 mg/dL 11/17/2024 9:32 PM CDT [facility] Anion Gap 9 6 - 16 mmol/L 11/17/2024 9:32 PM CDT [facility] BUN 12 5.3 - 18.7 mg/dL 11/17/2024 9:32 PM CDT [facility] Creatinine 0.59 0.57 - 1.11 mg/dL 11/17/2024 9:32 PM CDT [facility] Alkaline Phosphatase 28(L) 40 - 150 U/L 11/17/2024 9:32 PM CDT [facility] ALT 16 6 - 57 U/L 11/17/2024 9:32 PM CDT [facility] AST 19 10 - 48 U/L 11/17/2024 9:32 PM CDT [facility] Protein Total 6.3(L) 6.4 - 8.3 gm/dL 11/17/2024 9:32 PM CDT [facility] Albumin 3.6 3.1 - 4.5 gm/dL 11/17/2024 9:32 PM CDT [facility] Bilirubin Total 0.3 0.2 - 1.2 mg/dL 11/17/2024 9:32 PM CDT [facility] eGFR by CKD-EPI >90 >=90 mL/min/1.7 3 m2 11/17/2024 9:32 PM CDT [facility] Comment:Estimated Glomerular Filtration Rate (eGFR) calculated using the CKD-EPI Creatinine Equation (2020), per the National Kid[employer] and [place] [employer] recommendations. Blood BLOOD SPECIMEN / Unknown Venipuncture / Unknown 11/17/2024 9:09 PM CDT 11/17/2024 9:15 PM CDT Neri Caro MD LAB - CHEMISTRY ORDERA BLES Final Result Performing Organization Address City/State/[facility] Co de Phone Number [facility] [address] [place] [address] from Last 3 Months Insurance [employer] Advance Directives * Full Code (Latest Code Status on File) Date Activated Date Inactivated Comments 11/17/2024 8:39 PM 11/18/2024 11:04 PM
--- NOTE | 2025-02-12 15:48 | PM.OBTRLD ---
OB - Triage/Final Diagnosis Visit Information Date of evaluation: 02/09/25 Reason for evaluation: other (fall) Comments/Additional reasons for admission: I have assessed the risk for this patient, Eleni Kirkland, and determined that she would benefit from observation care.
== END 2025-02-09 21:10 | disposition home or self-care (01) ==
PROVIDERS: Admitting Provider Obstetrics & Gynecology; Visit Provider Obstetrics & Gynecology
DX: O9A.212 Injury, poisoning and certain other consequences of external causes complicating pregnancy, second trimester (principal); Z3A.27 27 weeks gestation of pregnancy
CPT/HCPCS: G0378; G0379